=== PATIENT | female | born 1945 | race Caucasian/White ===

== ENCOUNTER → 2017-07-15 15:52 | Outpatient (CLI) | payer MEDICARE, OTHER, SELFPAY ==
--- NOTE | 2017-07-15 15:57 | RAD_ITS ---
STUDY: X-RAY - RIGHT ANKLE REASON FOR EXAM: Female, 72 years old. Fall ankle pain and swelling. TECHNIQUE: 3 view(s) of the ankle. COMPARISON: None. FINDINGS: Normal visualized distal tibia and fibula. Mild cortical lobulation at the tips of the medial and lateral malleoli. Normal tibiotalar articulation and ankle mortise. There is an enthesophyte involving the posterior superior calcaneus at the site of insertion of the Achilles tendon. There is a plantar calcaneal spur. Seen only on one view are 2 small crescent shaped calcific densities adjacent to the distal talus and cuboid, either which could be cortical avulsion injuries, normal ossicles, or the margins of cortical spurring. The visualized subtalar, talonavicular, calcaneocuboid and tarsal articulations are normal. There is soft tissue swelling in the visualized distal lower leg and ankle. RAD/Ankle min 3 Views IMPRESSION: 1. Soft tissue swelling of the distal right lower leg and ankle. 2. Small crescent-shaped calcifications consistent with cortical avulsion injury versus spurring versus normal ossicles seen on only one view near the lateral margins of the distal talus and cuboid. Clinical correlation for point tenderness at this site advised and, if clinically suspicious for acute injury, this could be further characterized with CT. Electronically Signed: Francisco Albarran MD at 16:29 EDT , Service support ,
== END ==
PROVIDERS: Family Provider Internal Medicine; PCP Internal Medicine; Visit Provider Internal Medicine
DX: M25.571 Pain in right ankle and joints of right foot (principal)
CPT/HCPCS: 73610

== ENCOUNTER → 2018-01-18 08:51 | Outpatient (CLI) | payer MEDICARE, OTHER, SELFPAY ==
--- NOTE | 2018-01-18 08:55 | RAD_ITS ---
STUDY: X-RAY - LEFT ANKLE REASON FOR EXAM: Female, 72 years old. Lateral and posterior pain. History of fall 2 weeks ago. TECHNIQUE: 3 view(s) of the ankle. COMPARISON: None. FINDINGS: Normal visualized distal tibia and fibula. I suspect a nondisplaced avulsion fracture of the lateral malleolus. Normal tibiotalar articulation and ankle mortise. Plantar spur. The visualized subtalar, talonavicular, calcaneocuboid and tarsal articulations are normal. Soft tissue swelling. RAD/Ankle min 3 Views IMPRESSION: I suspect a nondisplaced avulsion fracture of the lateral malleolus with overlying soft tissue swelling. Electronically Signed: Shar Whitley MD at 12:47 EDT Tel [phone], Service support ,
== END ==
PROVIDERS: Family Provider Internal Medicine; PCP Internal Medicine; Referring Provider Internal Medicine; Visit Provider Internal Medicine
DX: M25.572 Pain in left ankle and joints of left foot (principal)
CPT/HCPCS: 73610

== ENCOUNTER → 2018-03-23 08:42 | Outpatient (CLI) | payer MEDICARE, OTHER, SELFPAY ==
--- NOTE | 2018-03-23 08:46 | BI_ITS ---
MAMMOGRAPHY - BILATERAL SCREENING REASON FOR EXAM: Female, 72 years old. Routine annual screening examination. PERTINENT HISTORY: Sisters with breast cancer. Mother with breast cancer. Prior right ultrasound-guided breast biopsies. TECHNIQUE: Digital bilateral breast howard (3D mammographic acquisition) in the CC and MLO projections. 2-D mediolateral oblique (MLO) and craniocaudad (CC) views of both breasts were obtained. CAD: Full Field Digital Mammography with Computer Added Detection was performed. COMPARISON: Comparison is made with prior examination dated February 11, 2017 and February 11, 2016. FINDINGS: Breast Composition: There are scattered areas of fibroglandular density. There are no dominant masses or suspicious calcifications. Stable appearance of the tissue clip marker is in the deep mid and medial aspects of the right breast. There now is evidence of a 6 mm x 9.5 mm well-defined nodule in the retroareolar region of the right breast. Correlation with ultrasound is recommended. No other significant abnormalities are identified. BI/SCREENING MAMM (CAD), BILAT IMPRESSION: 6 mm x 9.5 mm well-defined nodule in the retroareolar region of the right breast as described. Correlation with ultrasound is recommended. The remainder of the examination is unchanged. ASSESSMENT CATEGORY: BIRADS Category 0: Incomplete. Need additional imaging evaluation. A letter regarding these results will be sent to the patient by the facility within 30 days. Approximately 10% of breast cancers are not detected by mammography. A normal mammogram should not delay biopsy of a clinically suspicious abnormality. [id number] Electronically Signed: Shar Whitley MD at 10:28 EST Tel [phone], Service support ,
--- NOTE | 2018-03-23 09:20 | BD_ITS ---
STUDY: DUAL ENERGY X-RAY ABSORPTIOMETRY / DXA REASON FOR EXAM: Female, 72 years old. The patient is postmenopausal. Loss of height. TECHNIQUE: Bone Mineral Density (BMD) measurements of lumbar spine and bilateral hips were obtained. COMPARISON: Comparison is made with prior study dated February 11, 2016. FINDINGS: Lumbar Spine (L1-L4): g/cm2 (1.247) / T-score (0.4) / Z-score (2.1) Findings are suggestive of normal bone density with a low fracture risk. Left Femur Total: g/cm2 (1.119) / T-score (0.9) / Z-score (2.4) Left Femoral Neck: g/cm2 (1.033) / T-score (0.0) / Z-score (1.7) Right Femur Total: g/cm2 (1.121) / T-score (0.9) / Z-score (2.4) Right Femoral Neck: g/cm2 (1.066) / T-score (0.2) / Z-score (1.9) The T-Scores on the most recent prior examination were: Lumbar Spine (L1-L4): There has been improvement of bone density since the previous examination. Left Femur Total: which represents a worsening of 2.3%. Right Femur Total: which represents a worsening of 3.7%. BD/Dexa Bone Density Study IMPRESSION: The patient is considered normal as outlined below according to World Jose Organization (WHO) criteria with a low fracture risk. There has been worsening of bone density since the previous examination. Reference Information: The T-score is the number of standard deviations above or below the standard which is normal for young adults at their peak bone mineral density. The World Health Organization (WHO) interprets the T-scores as follows: Above -1 Normal bone density Between -1 and -2.5 Osteopenia Equal to / or below -2.5 Osteoporosis As a practical clinical guideline, osteopenia may be graded as follows: Mild -1 through -1.5 Moderate -1.6 through -2.0 Severe -2.1 through -2.4 The Z-score is the number of standard deviations above or below age-matched controls. A Z-score of less than -1.5 would be considered abnormal. References: 1. NIH Osteoporosis and Related Bone Diseases http://www.osteo.org 2. International Society for Clinical Densitometry http://www.iscd.org 3. National Osteoporosis Foundation http://www.nof.org Electronically Signed: Shar Whitley MD at 13:07 EST Tel [phone], Service support ,
--- OUTSIDE RECORDS SUMMARY | 2018-05-18 14:03 | XMS RPT_ITS ---
:1945 Author Organization OHIP Care Team Providers Name Role Phone Christo Renner Attending Unavailable Bonezzi, Arlet Referring Unavailable Bonezzi, Arlet Primary Care Unavailable Bonezzi, Arlet Attending Unavailable Nurse, Surgery Attending Unavailable Bonezzi, Arlet Referring Unavailable Bonezzi, Arlet Attending Unavailable Bonezzi, Arlet Referring Unavailable Bonezzi, Arlet Primary Care Unavailable Bonezzi, Arlet Attending Unavailable Bonezzi, Arlet Primary Care Unavailable Bonezzi, Arlet Attending Unavailable Bonezzi, Arlet Referring Unavailable Bonezzi, Arlet Primary Care Unavailable PROBLEMS PROBLEMS DATE TYPE CONDITION / CODE ATTENDING STATUS SOURCE 04/07/2018 Unknown R92.8 - Other Christo Renner Active [facility] abnormal and Community inconclusive Hospital findings on Repository diagnostic imaging of breast / R92.8(ICD-10) 03/23/2018 Unknown Z12.31 - Encounter Arlet Ricketts for screening Community mammogram for Hospital malignant neoplasm Repository of breast / Z12.31(ICD-10) 03/23/2018 Unknown Z78.0 - Arlet Ricketts Active [facility] menopausal state / Hospital Z78.0(ICD-10) Repository PROCEDURES PROCEDURES No Procedure Records FoundRESULTS RESULTS SURGERY VISIT REPORT Observed: 04/07/2018 Status: F Source: [place] 8:36 AM [facility] REPOSITORY [facility] [address] [place] [address] OFFICE VISIT Date of Service: 04/07/18 MR#: [id number] Acct: [id number] Name: ALLY ESCOTO Rep #: [id number] : 1945 Provider: Christo Renner MD Age/Sex: 72/F Location: [facility] Status: Signed Intake Vital Signs04/07/18 Height 5 ft 3.5 in 04/07/18 Weight: 195 lb 2 oz 04/07/18 Body Mass Index (BMI) 34.0 04/07/18 Blood Pressure 153/79 H Intake Visit Reasons: Family HX R Breast Abnormal Mammo 03/23 US 03/29 Chief Complaint: breast check, family history breast CA x3 Utility Arborist Required: No Is patient in pain?: No Allergies amoxicillin Allergy (Mild, Verified 04/07/18 08:28) rash codeine Adverse Reaction (Mild, Verified 04/07/18 08:28) GI upset lisinopril Adverse Reaction (Mild, Verified 04/07/18 08:28) sleepy Medications amlodipine 5 mg tablet 5 mg PO BID tab 04/07/18 [History Confirmed 04/07/18] arginine (L-arginine) 2,000 mg oral powder packet mg PO ea 04/07/18 [History Confirmed 04/07/18] ascorbate calcium 500 mg tablet 500 mg PO BID 04/07/18 [History Confirmed 04/07/18] aspirin 81 mg tablet,delayed release 81 mg PO DAILY 04/07/18 [History Confirmed 04/07/18] cholecalciferol (vitamin D3) 400 unit capsule 400 unit PO BID cap 04/07/18 [History Confirmed 04/07/18] fenofibrate 160 mg tablet 160 mg PO DAILY 04/07/18 [History Confirmed 04/07/18] losartan 25 mg tablet 25 mg PO DAILY 04/07/18 [History Confirmed 04/07/18] metformin 500 mg tablet 500 mg PO BID 04/07/18 [History Confirmed 04/07/18] omega 1-bnn-kii-fish oil 1,000 mg (120 mg-180 mg) capsule cap PO cap 04/07/18 [History Confirmed 04/07/18] omeprazole 40 mg capsule,delayed release 40 mg PO DAILY 04/07/18 [History Confirmed 04/07/18] rosuvastatin 20 mg tablet 20 mg PO DAILY 04/07/18 [History Confirmed 04/07/18] Is last menstrual period known: No Post menopausal: Yes Patient : No PFSH Medical History Abnormal mammogram of right breast (Acute) Cardiac murmur (Acute) GERD (gastroesophageal reflux disease) (Acute) History of benign breast biopsy (Acute) History of wisdom tooth extraction (Acute) Osteoarthritis (Acute) HTN (hypertension) (Chronic) Surgical History History of cholecystectomy (Acute) History of colonoscopy (Acute 2007) History of neck surgery (Acute) Family History Mother Breast cancer Sister Breast cancer Sister Breast cancer Father Heart disease Social History Smoking Status: Never smoker HPI HPI HPI: ALLY ESCOTO, is a 72 F who presents to the office today for surgical consultation regarding abnormal mammogram and ultrasound. The patient is referred by Dr. Arlet Ricketts and a written compromise surgical consult recommendations will be returned to her. The patient is a very pleasant 72-year-old female. G0. Menarche was at age 11. She has had 2 previous breast biopsies she knows 1 of those was on the right. She has had 2 sisters with breast cancer 1 of them Aydee. The other sister at age 61 from her disease. Mother also had breast cancer. Patient is not on any estrogen replacement therapy. She has had no change in her self breast exam. No nipple discharge or drainage. At the [facility] March 23, 2018 she had screening mammography. There was felt to be a 6 x 9.5 mm well-defined nodule in the retroareolar area of the right breast. BI-RADS Category 0. Right breast ultrasound was subsequently obtained on March 29, 2018. This demonstrated that 1 o'clock position there is a 6 x 6 x 4 mm septated cyst and an adjacent 3 x 3 x 2 mm cyst ROS General General: No weight change, appetite, fatigue, colon cancer, breast cancer or weakness HEENT HEENT: No difficulty swallowing, eye injury, eye surgery, swollen glands or hoarseness Endo Endocrine: Yes diabetes mellitus; no thyroid disease, thyroid cancer, Hair loss, heat intolerance or cold intolerance Breast Breast: Yes abnormal mammogram and abnormal US; no left breast lump, right breast lump, nipple discharge, breast pain or breast enlargement Musc Musculoskeletal: Yes arthritis; no back problems, rheumatoid arthritis, gout or joint pain Cardio Cardiovascular: Yes murmur and high blood pressure; no pacemaker, heart disease, atrial fibrillation, heart attack, heart stent, palpitations, shortness of breat with exertion or chest pain Resp Respiratory: No shortness of breath, Yes sleep apnea, No cough, No COPD, No asthma, No emphysema, No wheezing Gastro Gastrointestinal: No abdominal pain, No nausea or vomiting, No diarrhea, No constipation, No blood in stool, Yes acid reflux, No hemorrhoids, No ulcers, No gallbladder problem, No black,tarry stools Volodymyr Hematologic: No blood thinners, No blood disorders, No bleeding, No anemia, No blood clots Neuro Neurologic: No weakness Exam Chest Breast Palpation: No nipple discharge Other: Bilateral breasts: No focal mass. No nipple discharge. No active blurry or clavicular adenopathy Cardio Heart Sounds: murmur Assessment AND Plan Problems 1. Abnormal mammogram of right breast R92.8 Plan I have discussed treatment options with the patient. Her family history is significant. I reviewed her images. The septated cyst on the right is slightly irregular. I believe that is reasonable to offer her an ultrasound-guided final aspiration right breast 1 o'clock position. I believe that this would provide her definitive diagnosis. She could then pursue annual imaging. In deference to the biopsy I have also offered 6- month follow-up right breast ultrasound. The patient has had the opportunity to ask and have questions answered. She believes that having definitive information would be valuable. She would like to schedule and pursue the ultrasound-guided final aspiration right breast. I appreciate the opportunity of assisting with her surgical care. We will expedite her aspiration. CC: Dr. Arlet Renner M.D., F.A.C.S. Coding Level of Care Code Prob focused, straight fwd Diagnoses Abnormal mammogram of right breast R92.8 04/07/18 0836 <Electronically signed by Christo Renner MD> Date Christo Mcmullen Signature: Date (if applicable) CC: Arlet Ricketts MD BREAST LIMITED Observed: 03/29/2018 Status: F Source: [place] UNILATERAL 1:54 PM [facility] REPOSITORY [facility] Imaging Services [address] [place] [address] Breast Limited Unilateral MR#: [id number] Acct: [id number] Name: ALLY ESCOTO Rep #: [id number] : 1945 F 72 From: Shar Whitley MD PCP: Arlet Ricketts MD Status: REG CLI Study: Breast Limited Unilateral Date of Exam: 03/29/18 Exam# [id number] Ordering Dr: Arlet Ricketts MD STUDY: ULTRASOUND BREAST - RIGHT REASON FOR EXAM: Female, 72 years old. Abnormal screening mammogram. TECHNIQUE: Axial and longitudinal images of the RIGHT breast were performed with a high resolution ultrasound transducer. COMPARISON: Comparison is made with prior mammogram dated March 23, 2018. FINDINGS: RIGHT Breast: The mammographic abnormality corresponds to a 6 mm x 6 mm x 4 mm septated cyst. This is at the 1:00 position breast at this time is from nipple. Adjacent to this, there is a 3 mm x 3 mm x 2 mm cyst. Routine mammographic follow-up is recommended. US/Breast Limited Unilateral IMPRESSION: 2 small cysts. ASSESSMENT CATEGORY: BIRADS Category 2: Benign. A letter regarding these results will be sent to the patient by the facility within 30 days. Electronically Signed: Shar Whitley MD at 15:30 EST Tel [phone], Service support , CC: Arlet Ricketts MD Transition Coach: Signed SCREENING MAMM (CAD), Observed: 03/23/2018 Status: F Source: [place] 8:46 AM [facility] REPOSITORY [facility] Imaging Services [address] [place] [address] SCREENING MAMM (CAD), BILAT MR#: [id number] Acct: [id number] Name: ALLY ESCOTO Rep #: [id number] : 1945 F 72 From: Shar Whitley MD PCP: Arlet Ricketts MD Status: REG CLI Study: SCREENING MAMM (CAD), BILAT Date of Exam: 03/23/18 Exam# [id number] Ordering Dr: Arlet Ricketts MD MAMMOGRAPHY - BILATERAL SCREENING REASON FOR EXAM: Female, 72 years old. Routine annual screening examination. PERTINENT HISTORY: Sisters with breast cancer. Mother with breast cancer. Prior right ultrasound-guided breast biopsies. TECHNIQUE: Digital bilateral breast howard (3D mammographic acquisition) in the CC and MLO projections. 2-D mediolateral oblique (MLO) and craniocaudad (CC) views of both breasts were obtained. CAD: Full Field Digital Mammography with Computer Added Detection was performed. COMPARISON: Comparison is made with prior examination dated February 11, 2017 and February 11, 2016. FINDINGS: Breast Composition: There are scattered areas of fibroglandular density. There are no dominant masses or suspicious calcifications. Stable appearance of the tissue clip marker is in the deep mid and medial aspects of the right breast. There now is evidence of a 6 mm x 9.5 mm well-defined nodule in the retroareolar region of the right breast. Correlation with ultrasound is recommended. No other significant abnormalities are identified. BI/SCREENING MAMM (CAD), BILAT IMPRESSION: 6 mm x 9.5 mm well-defined nodule in the retroareolar region of the right breast as described. Correlation with ultrasound is recommended. The remainder of the examination is unchanged. ASSESSMENT CATEGORY: BIRADS Category 0: Incomplete. Need additional imaging evaluation. A letter regarding these results will be sent to the patient by the facility within 30 days. Approximately 10% of breast cancers are not detected by mammography. A normal mammogram should not delay biopsy of a clinically suspicious abnormality. [id number] Electronically Signed: Shar Whitley MD at 10:28 EST Tel [phone], Service support , CC: Arlet Ricketts MD Transition Coach: Signed DEXA BONE DENSITY Observed: 03/23/2018 Status: F Source: [facility] 8:46 AM [facility] REPOSITORY [facility] Imaging Services [address] [place] [address] Dexa Bone Density Study MR#: [id number] Acct: [id number] Name: ALLY ESCOTO Rep #: [id number] : 1945 F 72 From: Shar Whitley MD PCP: Arlet Ricketts MD Status: REG CLI Study: Dexa Bone Density Study Date of Exam: 03/23/18 Exam# [id number] Ordering Dr: Arlet Ricketts MD STUDY: DUAL ENERGY X-RAY ABSORPTIOMETRY / DXA REASON FOR EXAM: Female, 72 years old. The patient is postmenopausal. Loss of height. TECHNIQUE: Bone Mineral Density (BMD) measurements of lumbar spine and bilateral hips were obtained. COMPARISON: Comparison is made with prior study dated February 11, 2016. FINDINGS: Lumbar Spine (L1-L4): g/cm2 (1.247) / T-score (0.4) / Z-score (2.1) Findings are suggestive of normal bone density with a low fracture risk. Left Femur Total: g/cm2 (1.119) / T-score (0.9) / Z-score (2.4) Left Femoral Neck: g/cm2 (1.033) / T-score (0.0) / Z- score (1.7) Right Femur Total: g/cm2 (1.121) / T-score (0.9) / Z- score (2.4) Right Femoral Neck: g/cm2 (1.066) / T-score (0.2) / Z- score (1.9) The T-Scores on the most recent prior examination were: Lumbar Spine (L1-L4): There has been improvement of bone density since the previous examination. Left Femur Total: which represents a worsening of 2.3%. Right Femur Total: which represents a worsening of 3.7%. BD/Dexa Bone Density Study IMPRESSION: The patient is considered normal as outlined below according to World Jose Organization (WHO) criteria with a low fracture risk. There has been worsening of bone density since the previous examination. Reference Information: The T-score is the number of standard deviations above or below the standard which is normal for young adults at their peak bone mineral density. The World Health Organization (WHO) interprets the T-scores as follows: Above -1 Normal bone density Between -1 and -2.5 Osteopenia Equal to / or below -2.5 Osteoporosis As a practical clinical guideline, osteopenia may be graded as follows: Mild -1 through -1.5 Moderate -1.6 through -2.0 Severe -2.1 through -2.4 The Z-score is the number of standard deviations above or below age-matched controls. A Z-score of less than -1.5 would be considered abnormal. References: 1. NIH Osteoporosis and Related Bone Diseases http://www.osteo.org 2. International Society for Clinical Densitometry http://www.iscd.org 3. National Osteoporosis Foundation http://www.nof.org Electronically Signed: Shar Whitley MD at 13:07 EST Tel [phone], Service support , CC: Arlet Ricketts MD Transition Coach: Signed ANKLE MIN 3 VIEWS Observed: 01/18/2018 Status: F Source: [place] 8:55 AM [facility] REPOSITORY [facility] Imaging Services [address] [place] [address] Ankle min 3 Views MR#: [id number] Acct: [id number] Name: ALLY ESCOTO Rep #: [id number] : 1945 F 72 From: Shar Whitley MD PCP: Arlet iRcketts MD Status: REG CLI Study: Ankle min 3 Views Date of Exam: 01/18/18 Exam# [id number] Ordering Dr: Arlet Ricketts MD STUDY: X-RAY - LEFT ANKLE REASON FOR EXAM: Female, 72 years old. Lateral and posterior pain. History of fall 2 weeks ago. TECHNIQUE: 3 view(s) of the ankle. COMPARISON: None. FINDINGS: Normal visualized distal tibia and fibula. I suspect a nondisplaced avulsion fracture of the lateral malleolus. Normal tibiotalar articulation and ankle mortise. Plantar spur. The visualized subtalar, talonavicular, calcaneocuboid and tarsal articulations are normal. Soft tissue swelling. RAD/Ankle min 3 Views IMPRESSION: I suspect a nondisplaced avulsion fracture of the lateral malleolus with overlying soft tissue swelling. Electronically Signed: Shar Whitley MD at 12:47 EDT Tel [phone], Service support , CC: Arlet Ricketts MD Transition Coach: Signed ANKLE MIN 3 VIEWS Observed: 07/15/2017 Status: F Source: [place] 3:57 PM [facility] REPOSITORY [facility] Imaging Services [address] [place] [address] Ankle min 3 Views MR#: [id number] Acct: [id number] Name: ALLY ESCOTO Rep #: [id number] : 1945 F 72 From: Thomas Albarran MD PCP: Arlet Ricketts MD Status: REG CLI Study: Ankle min 3 Views Date of Exam: 07/15/17 Exam# [id number] Ordering Dr: Arlet Ricketts MD STUDY: X-RAY - RIGHT ANKLE REASON FOR EXAM: Female, 72 years old. Fall ankle pain and swelling. TECHNIQUE: 3 view(s) of the ankle. COMPARISON: None. FINDINGS: Normal visualized distal tibia and fibula. Mild cortical lobulation at the tips of the medial and lateral malleoli. Normal tibiotalar articulation and ankle mortise. There is an enthesophyte involving the posterior superior calcaneus at the site of insertion of the Achilles tendon. There is a plantar calcaneal spur. Seen only on one view are 2 small crescent shaped calcific densities adjacent to the distal talus and cuboid, either which could be cortical avulsion injuries, normal ossicles, or the margins of cortical spurring. The visualized subtalar, talonavicular, calcaneocuboid and tarsal articulations are normal. There is soft tissue swelling in the visualized distal lower leg and ankle. RAD/Ankle min 3 Views IMPRESSION: 1. Soft tissue swelling of the distal right lower leg and ankle. 2. Small crescent-shaped calcifications consistent with cortical avulsion injury versus spurring versus normal ossicles seen on only one view near the lateral margins of the distal talus and cuboid. Clinical correlation for point tenderness at this site advised and, if clinically suspicious for acute injury, this could be further characterized with CT. Electronically Signed: Francisco Albarran MD at 16:29 EDT , Service support , CC: Arlet Ricketts MD Transition Coach: Signed ALLERGIES ALLERGIES DATE TYPE / CODE NAME / CODE REACTION SEVERITY SOURCE 04/07/2018 Drug lisinopril/F SLEEPY [facility] Allergy/4160 [id number](RX Hospital 53600(SNOMED NORM) Repository CT) 04/07/2018 Drug codeine/F006 gi upset [facility] Allergy/4160 389565(RX[facility] 81129(SNOMED M) Repository CT) 04/07/2018 Drug amoxicillin/ Rash [facility] Allergy/4160 [id number](R Hospital 88273(SNOMED XNORM) Repository CT) ENCOUNTERS ENCOUNTERS ADMIT/DISCHARGE ACCOUNT ADMITTING ENCOUNTER LOCATION SOURCE NUMBER CLASS 04/07/2018/ [id number] Ambulatory BMSBuilding:B [place] 8 6 [facility] Repository 03/29/2018 [id number] Ambulatory [place] 5 [facility] ing:OPUS Repository 03/23/2018 [id number] Ambulatory [place] 2 [facility] ing:OPBI Repository 01/18/2018 [id number] Ambulatory [place] 9 [facility] ing:HPRAD Repository 08/10/2017/ [id number] Ambulatory BMSBuilding:B [place] 8 5 [facility] Repository 07/15/2017 [id number] Ambulatory [place] 9 [facility] ing:HPRAD Repository PAYERS PAYERS ENCOUNTER GUARANTOR PAYER SUBSCRIBER SOURCE 04/07/2018 ALLY Singer Primary ALLY A [place] [id number] Insurance:MEDICARE STOLLERDOB: [facility] PART [facility] [id number]: Repository [address]Mco: [phone] [id number] [phone] () Date:2018-03-31 04/07/2018 Secondary ALLY A Madd[place] Insurance:AARPPolicy STOLLERDOB: Community Number: [id number] [id number] Repository Date:[id number] [facility] [place], [place] [address]LA: 04/07/2018 Tertiary NOT GIVENUNK [place] Insurance:SELF PAY [facility] Number: Effective Repository Date:2018-03-31 03/29/2018 ALLY A Primary ALLY A [place] [id number] Insurance:MEDICARE STOLLERDOB: Community MAIN PART A [id number] [place] Number: Repository [address]Fii: 330 [id number] [phone] () Date:2018-03-23 03/29/2018 Secondary ALLY A [place] Insurance:AARPPolicy STOLLERDOB: Community Number: [id number] [id number] Repository Date:7000-30-[address], [place] [address]SE: 03/29/2018 Tertiary NOT GIVENUNK [place] Insurance:SELF PAY [facility] Number: Effective Repository Date:2018-03-23 03/23/2018 ALLY A Primary ALLY A [place] [id number] Insurance:MEDICARE STOLLERDOB: Community MAIN PART A [facility] [id number] Number: Repository [id number]: 330 [id number] [phone] () Date:2018-02-09 03/23/2018 Secondary ALLY A [place] Insurance:AARPPolicy STOLLERDOB: Community Number: [id number] [id number] Repository Date:1544-73-11VX [facility] [place]98[place], [place] [address]XE: 03/23/2018 Tertiary NOT GIVENUNK [place] Insurance:SELF PAY [facility] Number: Effective Repository Date:2018-02-09 01/18/2018 ALLY A Primary ALLY A [place] [id number] Insurance:MEDICARE STOLLERDOB: Community MAIN PART A [facility] [id number] [place] Number: Repository [address]Zel: 330 [id number] [phone] (HP) Date:2018-01-18 01/18/2018 Secondary ALLY A [place] Insurance:AARPPolicy STOLLERDOB: Community Number: [id number] [id number] Repository Date:0092-84-06AQ [facility] [address], [place] [address]YM: 01/18/2018 Tertiary NOT GIVENUNK [place] Insurance:SELF PAY [facility] Number: Effective Repository Date:2018-01-18 08/10/2017 ALLY A Primary ALLY A [place] [id number] Insurance:MEDICARE STOLLERDOB: Community MAIN PART A [facility] [id number] [place] Number: Repository [id number]: [id number] [phone] Date:2017-08-10 () 08/10/2017 Secondary ALLY A [place] Insurance:AARPPolicy STOLLERDOB: Community Number: [id number] Hospital [id number] Repository Date:4192-30-22TR [facility] [address], [place] [address]KA: 08/10/2017 Tertiary NOT GIVENUNK [place] Insurance:SELF PAY [facility] Number: Effective Repository Date:2017-08-10 07/15/2017 Ally A Primary Ally A [place] [id number] Insurance:MEDICARE StollerDOB: Community Main PART A [facility] [id number] [place] Number: Repository [address]Uym: [id number] [phone] Date:2017-07-15 () 07/15/2017 Secondary ALLY A [place] Insurance:AARPPolicy STOLLERDOB: Community Number: [id number] [facility] [id number] Repository Date:[id number] [facility] [place], [place] [address]QC: 07/15/2017 Tertiary NOT GIVENUNK [place] Insurance:SELF PAY [facility] Number: Effective Repository Date:2017-07-15
== END ==
PROVIDERS: Family Provider Internal Medicine; PCP Internal Medicine; Visit Provider Internal Medicine
DX: Z12.31 Encounter for screening mammogram for malignant neoplasm of breast (principal); Z78.0 Asymptomatic menopausal state
CPT/HCPCS: 77063; 77067; 77080

== ENCOUNTER → 2018-03-29 13:52 | Outpatient (CLI) | payer MEDICARE, OTHER, SELFPAY ==
--- NOTE | 2018-03-29 13:54 | US_ITS ---
STUDY: ULTRASOUND BREAST - RIGHT REASON FOR EXAM: Female, 72 years old. Abnormal screening mammogram. TECHNIQUE: Axial and longitudinal images of the RIGHT breast were performed with a high resolution ultrasound transducer. COMPARISON: Comparison is made with prior mammogram dated March 23, 2018. FINDINGS: RIGHT Breast: The mammographic abnormality corresponds to a 6 mm x 6 mm x 4 mm septated cyst. This is at the 1:00 position breast at this time is from nipple. Adjacent to this, there is a 3 mm x 3 mm x 2 mm cyst. Routine mammographic follow-up is recommended. US/Breast Limited Unilateral IMPRESSION: 2 small cysts. ASSESSMENT CATEGORY: BIRADS Category 2: Benign. A letter regarding these results will be sent to the patient by the facility within 30 days. Electronically Signed: Shar Whitley MD at 15:30 EST Tel [phone], Service support ,
== END ==
PROVIDERS: Family Provider Internal Medicine; PCP Internal Medicine; Referring Provider Internal Medicine; Visit Provider Internal Medicine
DX: R92.8 Other abnormal and inconclusive findings on diagnostic imaging of breast (principal)
CPT/HCPCS: 76642

== ENCOUNTER 2018-05-20 05:47 | Day surgery (SDC) | payer MEDICARE, OTHER, SELFPAY ==
[2018-04-13 09:05] VITALS: BMI 34.0
--- NOTE | 2018-05-20 06:18 | PCM.HP.STD ---
Problem List (1) Screening for intestinal cancer Status: Acute History of Present Illness Date of Admission: 05/20/18 The patient is a 73 year old F who presents for screening colonoscopy. Her most recent colonoscopy was in 2007. She denies any bright red blood per rectum or melena. No abdominal pain. No change in bowel habits. She states that she otherwise has been enjoying good health Past Medical History Medical History: Medical History (Last Reviewed 04/13/18 @ 09:04 by Anita Pascual) Abnormal mammogram of right breast (Acute) R92.8 Cardiac murmur R01.1 GERD (gastroesophageal reflux disease) K21.9 History of benign breast biopsy Z98.890 History of wisdom tooth extraction K08.409 Osteoarthritis M19.90 HTN (hypertension) I10 Allergies amoxicillin Allergy (Mild, Verified 05/17/18 12:12) rash codeine Adverse Reaction (Mild, Verified 05/17/18 12:12) GI upset lisinopril Adverse Reaction (Mild, Verified 05/17/18 12:12) sleepy Home Medications: Ambulatory Orders Medication Instructions Recorded amlodipine 5 mg tablet 10 mg PO BID tab 04/07/18 aspirin 81 mg tablet,delayed 81 mg PO DAILY 04/07/18 release cholecalciferol (vitamin D3) 400 800 unit PO BID cap 04/07/18 unit capsule fenofibrate 160 mg tablet 160 mg PO DAILY 04/07/18 losartan 25 mg tablet 25 mg PO QHS 04/07/18 metformin 500 mg tablet 500 mg PO BID 04/07/18 omega 3-lxd-fwj-fish oil 1,000 mg 1 cap PO DAILY cap 04/07/18 (120 mg-180 mg) capsule omeprazole 40 mg capsule,delayed 40 mg PO DAILY 04/07/18 release rosuvastatin 20 mg tablet 20 mg PO DAILY 04/07/18 Calcium Carbonate [Calcium] 600 mg PO BID 05/17/18 Surgical History: Surgical History (Last Reviewed 04/13/18 @ 09:04 by Anita Pascual) History of cholecystectomy Z90.49 History of colonoscopy Onset Date: ~2007 Z98.890 History of neck surgery Z98.890 Smoking Status: Never smoker Tobacco Use: Non-smoker Review of Systems Constitutional: Denies: Anorexia HEENT: Denies: Difficulty Swallowing Cardiovascular: Denies: Chest Pain Respiratory: Denies: Cough Gastrointestinal: Denies: Abdominal Pain Neurological: Denies: Balance problems Endocrine: Denies: Change in Body Habitus VTE Information - Inpt Only VTE Present on Admission: No Patient Problems: Active and Suspected Problems (Last Reviewed 04/13/18 @ 09:04 by Anita Pascual) Screening for intestinal cancer (Acute) - Physical Exam General: Alert, Oriented x3, Cooperative, No apparent distress HEENT: Atraumatic Oral: Moist Mucosa Neck: Supple Lungs: Clear to auscultation Cardiovascular: Regular rate, Regular Rhythm Abdomen: Bowel Sounds Present, Soft, Non Tender Extremities: No Calf Tenderness Psych/Mental Status: Normal Affect Body Mass Index (BMI) 34.0 Assessment/Plan All Active Problems (Last Reviewed 04/13/18 @ 09:04 by Anita Pascual) Screening for intestinal cancer (Acute) Abnormal mammogram of right breast (Acute) I am recommending the patient a screening colonoscopy with possible biopsy or polypectomy as indicated. She is aware of the technique, benefits, risks, alternatives. She presents via our open access program. We will proceed as noted. Christo Renner M.D., F.A.C.S.
[2018-05-20 06:25] VITALS: BP 159/69; PULSE 77; RESP 16; TEMP 36.9; O2SAT 99; BMI 33.9
[2018-05-20 06:31] LABS: Bedside Glucose 145 mg/dL (70-110)
[2018-05-20 07:20] VITALS: BP 121/93; BP 159/69; PULSE 86; RESP 16; TEMP 36.4; O2SAT 97
--- NOTE | 2018-05-20 07:20 | OP.ENDO_ITS ---
Patient Name: Ally Navarro Procedure Date: 05/20/2018 6:59 AM Date of : 1945 Age: 73 Procedure: Colonoscopy Indications: Screening for colorectal malignant neoplasm Providers: Christo Renner MD Referring MD: Christo Renner MD Medicines: See the Anesthesia note for documentation of the administered medications Patient Profile: Last Colonoscopy: 2007. Complications: No immediate complications. Procedure: Pre-Anesthesia Assessment: - Prior to the procedure, a History and Physical was performed, and patient medications and allergies were reviewed. The patient's tolerance of previous anesthesia was also reviewed. The risks and benefits of the procedure and the sedation options and risks were discussed with the patient. All questions were answered, and informed consent was obtained. Prior Anticoagulants: The patient has taken aspirin, last dose was 1 day prior to procedure. ASA Grade Assessment: II - A patient with mild systemic disease. After reviewing the risks and benefits, the patient was deemed in satisfactory condition to undergo the procedure. After I obtained informed consent, the scope was passed under direct vision. Throughout the procedure, the patient's blood pressure, pulse, and oxygen saturations were monitored continuously. The Colonoscope was introduced through the anus and advanced to the cecum, identified by appendiceal orifice and ileocecal valve. The colonoscopy was performed without difficulty. The patient tolerated the procedure well. The quality of the bowel preparation was good. The ileocecal valve was photographed. Scope In: 7:05:21 AM Scope Withdrawal Time 0 hours 6 minutes 11 seconds Scope Out: 7:16:10 AM Total Procedure Duration Time 0 hours 10 minutes 49 seconds Findings: Hemorrhoids were found on perianal exam. Scattered diverticula were found in the sigmoid colon. The exam was otherwise without abnormality. Impression: - Hemorrhoids found on perianal exam. - Diverticulosis in the sigmoid colon. - The examination was otherwise normal. - No specimens collected. Recommendation: - Discharge patient to home. - Resume previous diet. - Continue present medications. - Repeat colonoscopy in 10 years for screening purposes. Procedure Code(s): --- Professional --- 08505, Colonoscopy, flexible; diagnostic, including collection of specimen(s) by brushing or washing, when performed (separate procedure) Diagnosis Code(s): --- Professional --- Z12.11, Encounter for screening for malignant neoplasm of colon K64.9, Unspecified hemorrhoids K57.30, Diverticulosis of large intestine without perforation or abscess without bleeding CPT copyright 2017 [employer]. All rights reserved. The codes documented in this report are preliminary and upon packager head review may be revised to meet current compliance requirements. Christo Renner MD 05/20/2018 7:20:29 AM This report has been signed electronically. Number of Addenda: 0 Note Initiated On: 05/20/2018 6:59 AM
[2018-05-20 07:25] VITALS: BP 135/65; BP 159/69; PULSE 82; RESP 18; O2SAT 96
[2018-05-20 07:30] VITALS: BP 144/72; BP 159/69; PULSE 76; RESP 16; O2SAT 97
[2018-05-20 07:35] VITALS: BP 123/49; BP 159/69; PULSE 74; RESP 18; TEMP 36.7; O2SAT 96
[2018-05-20 07:38] VITALS: BP 159/69
== END 2018-05-20 08:13 | disposition home or self-care (01) ==
LOC: EN 05:48 → AC 05:50
PROVIDERS: Family Provider Internal Medicine; PCP Internal Medicine; Referring Provider Surgery; Visit Provider Surgery
PROC: 0DJD8ZZ Inspection of Lower Intestinal Tract, Via Natural or Artificial Opening Endoscopic (ICD-10-PCS; CPT 45378; principal; 2018-05-20 06:55)
DX: Z12.11 Encounter for screening for malignant neoplasm of colon (principal); K64.9 Unspecified hemorrhoids; K57.30 Diverticulosis of large intestine without perforation or abscess without bleeding; G47.30 Sleep apnea, unspecified; K21.9 Gastro-esophageal reflux disease without esophagitis; E78.00 Pure hypercholesterolemia, unspecified; M19.90 Unspecified osteoarthritis, unspecified site; I10 Essential (primary) hypertension; R01.1 Cardiac murmur, unspecified; Z78.0 Asymptomatic menopausal state; Z79.84 Long term (current) use of oral hypoglycemic drugs; Z79.82 Long term (current) use of aspirin; Z79.899 Other long term (current) drug therapy
CPT/HCPCS: G0121; 82962; J7120

== ENCOUNTER → 2018-06-16 13:42 | Outpatient (CLI) | payer SELFPAY ==
[2018-05-20 06:25] VITALS: BMI 33.9
--- NOTE | 2018-06-16 13:54 | CT_ITS ---
STUDY: CT CHEST WITHOUT CONTRAST REASON FOR EXAM: Female, 73 years old. Calcium scoring examination. Radiological over read study. RADIATION DOSAGE (If Supplied By Facility): CTDIvol = ( 12.19 ) mGy, DLP = ( 219.42 ) mGycm TECHNIQUE: Transaxial imaging was performed without the administration of intravenous contrast material. Individualized dose optimization techniques were used for this CT. COMPARISON: None. FINDINGS: Minimal increased markings at the left lung base suggestive of linear atelectasis and/or scarring. There is no demonstrated pleural abnormality. There are calcifications of the coronary arteries. There are multiple small lymph nodes within the mediastinum, which are normal in size and morphology most compatible with reactive lymph hyperplasia. Normal hilar regions. Normal unenhanced pulmonary arteries. Normal aorta arch and descending thoracic aorta. There are multi-level degenerative changes of the thoracic spine. There is no demonstrated abnormality of the visualized upper abdomen. CT/Limited Chest CT w/CCTA IMPRESSION: Coronary artery calcification. Electronically Signed: Shar Whitley MD at 15:47 EST , Service support ,
[2018-06-16 13:58] VITALS: BP 176/58; PULSE 55; RESP 16; TEMP 37.1; O2SAT 97; BMI 34.9
--- NOTE | 2018-06-16 18:16 | CA.SCORE ---
Calcium Scoring Date of Study:: 06/16/18 Coronary Calcium Scoring: Coronary calcium score: 805 Conclusion: Coronary calcium score: 805 Results: The patient underwent a high resolution CT imaging of the chest on 06/16/19 and . Attention was paid to the coronary arteries. The coronary arteries were analyzed for the presence of extensive coronary artery calcification using coronary calcium quantification software. The patient was reported as tolerated the procedure well. The coronary calcium score was reported at 805. Based upon the coronary artery try obtained the LAD had a coronary calcium score of 186, the LCx a coronary calcium score of 136, and the RCA had a coronary calcium score of 484. Based upon pre published reference tables a coronary calcium score over 400 and is indicative of extensive plaque burden in the high likelihood of at least 1 significant coronary stenosis being greater than 50% in diameter. Impression: Coronary calcium score: 805 This note was generated using a voice recognition system and there may be incorrect words, spelling or punctuation that were not noted when reviewing the office note prior to saving.
== END ==
PROVIDERS: Family Provider Internal Medicine; PCP Internal Medicine; Referring Provider Internal Medicine; Visit Provider Internal Medicine
DX: E78.5 Hyperlipidemia, unspecified (principal); Z82.49 Family history of ischemic heart disease and other diseases of the circulatory system; E11.9 Type 2 diabetes mellitus without complications; I65.29 Occlusion and stenosis of unspecified carotid artery; I10 Essential (primary) hypertension
CPT/HCPCS: 75571; 76380

== ENCOUNTER → 2018-07-13 16:21 | Outpatient (CLI) | payer MEDICARE, OTHER, SELFPAY ==
[2018-07-13 15:02] VITALS: BMI 34.5
[2018-07-13 17:35] LABS: Absolute Lymphocyte Count 1.94 X10^3/ul (0.83-4.51); Absolute Neutrophil Count 5.9 X10^3/uL (2.0-7.7); Basophil# 0.05 X10^3/uL; Basophil% 0.6 % (0-1); Eosinophil# 0.29 X10^3/uL; Eosinophils% 3.2 % (0-5); Hematocrit 40.2 % (37-47); Hemoglobin 12.5 g/dl (12.0-15.0); Lymphocyte # 1.94 X10^3/ul (4.0); Lymphocyte % 21.6 % (19-41); Mean Corp Hgb Conc 31.1 g/gl (32-36); Mean Corpuscular Hgb 26.3 pg (27.0-32.0); Mean Corpuscular Volume 84.5 fL (81-99); Mean Platelet Vol. 10.2 fl (6.2-12.0); Monocyte# 0.75 X10^3/uL; Monocyte% 8.4 % (0-10); Neutrophil # 5.92 X10^3/uL (2.7-7.7); Platelet Count 313 K/mm3 (150-450); RBC Distribution Width CV 14.3 % (11.6-14.6); RBC Distribution Width SD 43.4 fl (35.1-43.9); Red Blood Count 4.76 M/mm3 (4.2-5.4)
[2018-07-13 17:50] LABS: POSITIVE COUNT NO; POSITIVE DIFFERENTIAL NO; POSITIVE MORPHOLOGY NO
[2018-07-13 18:37] LABS: Anion Gap 6 (5-15); BUN 23 mg/dL (7-18); Calcium,Total 8.8 mg/dL (8.5-10.1); Chloride 109 mmol/L (98-107); Creatinine, Serum 0.88 mg/dL (0.55-1.02); EST Glomerular Filtration Rate 67 mL/min (>60); Est Glom Filt Rate - Afr Amer 81 mL/min (>60); Glucose 112 mg/dL (74-106); Potassium 3.6 mmol/L (3.5-5.1); Sodium Level 141 mmol/L (136-145)
== END ==
PROVIDERS: Family Provider Internal Medicine; PCP Internal Medicine; Referring Provider Internal Medicine Cardiovascular Disease; Visit Provider Internal Medicine Cardiovascular Disease
DX: R93.1 Abnormal findings on diagnostic imaging of heart and coronary circulation (principal); I35.0 Nonrheumatic aortic (valve) stenosis
CPT/HCPCS: 36415; 80048; 85025

== ENCOUNTER → 2018-07-21 10:55 | Outpatient (CLI) | payer MEDICARE, OTHER, SELFPAY ==
[2018-07-13 15:02] VITALS: BMI 34.5
--- NOTE | 2018-07-21 10:56 | ECHOD_ITS ---
Reason For Study: MURMUR Procedure This was a 2D Doppler, Color Flow transthoracic echocardiogram. Exam performed in department. Left Ventricle Normal LV size. Left ventricular systolic function is normal. The estimated ejection fraction is 60 %. Stage 1 diastolic dysfunction. No regional wall motion abnormalities noted. Right Ventricle Normal RV size. Normal systolic function. Atria Normal left atrium. Normal right atrium. Mitral Valve Normal mitral valve. Tricuspid Valve Normal tricuspid valve. Mild (1+) tricuspid valve insufficiency. Pulmonary artery systolic pressure is 30 mmHg. Aortic Valve Normal aortic valve. Trisinus/trileaflet aortic valve. Pulmonic Valve Normal pulmonic valve. Great Vessels Normal aortic root. The pulmonary artery is normal size. Normal inferior vena cava. Pericardium/Pleural No pericardial effusion. MMode/2D Measurements & Calculations LVIDd: 5.2 cm IVSd: 0.67 cm LVOT diam: 2.0 cm LVIDs: 3.6 cm LVPWd: 0.76 cm LVOT area: 3.0 cm2 RVDd: 3.8 cm FS: 31.4 % Ao root diam: 3.5 cm LAV(MOD-bp): 54.3 ml LVAd ap4: 33.6 cm2 LAV(MOD-bp) Indexed: 28.3 ml/m2 EDV(MOD-sp4): 115.5 ml LAV(MOD-sp2): 57.1 ml EDV(sp4-el): 116.0 ml LAV(MOD-sp4): 51.5 ml LVAs ap4: 17.8 cm2 ESV(MOD-sp4): 42.1 ml ESV(sp4-el): 42.2 ml EF(MOD-sp4): 63.6 % EF(sp4-el): 63.6 % SV(MOD-sp4): 73.4 ml SV(sp4-el): 73.8 ml LA A4 area: 18.1 cm2 LA dimension(2D): 3.8 cm RA A4 area: 12.8 cm2 Time Measurements MV dec time: 0.25 sec Doppler Measurements & Calculations MV E max thiago: 94.1 cm/sec Lat Peak E' Thiago: 9.7 cm/sec Med Peak E' Thiago: 7.4 cm/sec MV A max thiago: 121.7 cm/sec E/E' lat: 9.7 E/E' med: 12.8 MV E/A: 0.77 MV V2 max: 119.3 cm/sec Ao V2 max: 165.8 cm/sec LV V1 max: 133.4 cm/sec MV max P.7 mmHg Ao max P.0 mmHg LV V1 max P.1 mmHg MV V2 mean: 63.3 cm/sec Ao V2 mean: 115.0 cm/sec LV V1 mean P.8 mmHg MV mean P.9 mmHg Ao mean P.9 mmHg LV V1 mean: 93.0 cm/sec MV V2 VTI: 37.1 cm Ao V2 VTI: 38.7 cm LV V1 VTI: 32.2 cm MVA(VTI): 2.6 cm2 LEN(I,D): 2.5 cm2 LEN(V,D): 2.4 cm2 SV(LVOT): 96.4 ml PA V2 max: 132.0 cm/sec TR max thiago: 257.9 cm/sec TR max P.9 mmHg MV P1/2t-pr_phl: 75.7 msec Interpretation Summary Normal LV size. Left ventricular systolic function is normal. The estimated ejection fraction is 60 %. Stage 1 diastolic dysfunction. Mild (1+) tricuspid valve insufficiency. Ordering Physician: Yang Morillo Referring Physician: MECCA SAMAYOA Performed By: Marybeth Cobb, RDCS, RVT
== END ==
PROVIDERS: Family Provider Internal Medicine; PCP Internal Medicine; Referring Provider Internal Medicine Cardiovascular Disease; Visit Provider Internal Medicine Cardiovascular Disease
DX: I35.0 Nonrheumatic aortic (valve) stenosis (principal)
CPT/HCPCS: 93306

== ENCOUNTER 2018-07-22 06:15 | Day surgery (SDC) | payer MEDICARE, OTHER, SELFPAY ==
[2018-07-13 15:02] VITALS: BMI 34.5
[2018-07-20 10:52] VITALS: BMI 34.5
--- NOTE | 2018-07-22 08:29 | CL.D_ITS ---
Patient Name: TANVI ESCOTO Study Date: 07/22/2018 Performing: Yang Morillo MD Ht: 62.99 inches 160 cm : 1945 Wt: 194.01 lbs 88 kg Age: 73 Gender: female BSA: 1.91 PROCEDURE(S) PERFORMED [id number]/COR/LV CLINICAL PROFILE AND INDICATIONS Indications: Suspected CAD Heart Failure: None Stress/Imaging Coronary Calcium Score: Yes Calcium Score: 809Calcium Score: 809 CAD Presentations: Symptom unlikely to be ischemic. CONCLUSIONS Non obstructive coronary arteries Coronary calcification noted RECOMMENDATIONS Medical therapy DESCRIPTION OF PROCEDURE The patient arrived to the procedure lab. The risks and benefits of the procedure as well as a full d escription of our services here and current unavailability of surgical backup were fully explained to the patient and/or their significant other prior to the catheterization. The Timeout was completed, verifying the correct patient and procedure. The patient's procedural site was prepped and draped in the usual fashion. Local anesthetic was given subcutaneously to right radial region with Lidocaine 2% . Using a modified Seldinger technique, arterial access was obtained via the right radial artery, a 6 Fr sheath was inserted. Left Coronary Artery selective angiography was performed in multiple views u sing a 5 Fr. 4.0 Gilberton catheter. Right Coronary Artery selective angiography was then performed in mu ltiple views using a 5 Fr. 4.0 Gilberton catheter. Left Ventriculography was performed in PENA projection using a 5 Fr. Pigtail catheter. LV to AO pullback pressures were then recorded.The arterial sheath was pulled and a TR Band was applied for hemostasis CORONARY ANGIOGRAPHY DOMINANCE: Right Dominant LEFT HEART ASSESSMENT Left Ventricular Ejection Fraction: by LV Gram 60 % Normal LV wall motion Normal Left Ventricular systolic function LEFT MAIN: Angiographically normal LEFT ANTERIOR DECENDING ARTERY: Mild luminal irregularities less than 30%, Mild calcification CIRCUMFLEX ARTERY: Mild luminal irregularities RIGHT CORONARY ARTERY: MID RCA: Moderate luminal irregularities up to 50%, Moderate calcification COMPLICATIONS No Complications PROCEDURE MEDICATIONS Versed 1 mg IV Fentanyl 50 mcg IV Oxygen: 2 L/min via nasal cannula Baby Aspirin (81mg) 1 Tabs PO @ 07/22/2018 06:50:17 SUMMARY OF HEMODYNAMIC DATA Time AIR REST ECG 06:59:45 AO 126/57 (89) SA 08:05:19 LV 136/-10, 13 08:14:14 LV 128/3, 13 08:14:20 LV 139/1, 17 08:15:45 LV 135/2, 15 08:15:55 LVp 134/0, 12 08:16:01 AOp 137/56 (92) 08:16:06 Signed By Yang Morillo MD On 07/22/2018 08:28:19 Yang Morillo MD
== END 2018-07-22 11:15 | disposition home or self-care (01) ==
LOC: CLSP 06:16
PROVIDERS: Family Provider Internal Medicine; PCP Internal Medicine; Referring Provider Internal Medicine Cardiovascular Disease; Visit Provider Internal Medicine Cardiovascular Disease
DX: R93.1 Abnormal findings on diagnostic imaging of heart and coronary circulation (principal); E78.5 Hyperlipidemia, unspecified; K21.9 Gastro-esophageal reflux disease without esophagitis; I10 Essential (primary) hypertension; E66.9 Obesity, unspecified; E11.9 Type 2 diabetes mellitus without complications; R01.1 Cardiac murmur, unspecified; M19.90 Unspecified osteoarthritis, unspecified site; Z79.82 Long term (current) use of aspirin; Z79.02 Long term (current) use of antithrombotics/antiplatelets; Z79.899 Other long term (current) drug therapy; Z82.49 Family history of ischemic heart disease and other diseases of the circulatory system; Z68.34 Body mass index [BMI] 34.0-34.9, adult
CPT/HCPCS: 93458; 99152; 99153; J7040; C1769; C1894; Q9967

== ENCOUNTER → 2019-01-20 13:12 | Outpatient (CLI) | payer MEDICARE, OTHER, SELFPAY ==
[2018-07-20 10:52] VITALS: BMI 34.5
--- NOTE | 2019-01-20 13:15 | RAD_ITS ---
STUDY: X-RAY - RIGHT HAND REASON FOR EXAM: Bilateral hand pain. TECHNIQUE: 3 view(s) of the hand. COMPARISON: None. FINDINGS: Normal radiocarpal articulation. Normal distal radioulnar joint. Normal visualized carpal bones. Normal carpal articulations There are marginal osteophytes and moderately severe joint space narrowing of the carpometacarpal articulation of the thumb. Normal second through fifth carpometacarpal joints. Normal metacarpi. Normal metacarpophalangeal joint of the thumb. There are marginal osteophytes and severe joint space narrowing of the interphalangeal joint of the thumb. Normal proximal and distal phalanges of the thumb. Normal metacarpophalangeal joints of the second through fifth fingers. There are marginal osteophytes and joint space narrowing of the second through fifth distal interphalangeal joints and third through fifth distal interphalangeal joints with central erosive changes of the second through fourth distal interphalangeal joints and third proximal interphalangeal joint. Normal phalanges of the second through fifth fingers. The soft tissue structures are unremarkable. RAD/Hand Min 3 Views IMPRESSION: Erosive osteoarthritis. Electronically Signed: Vadim Mendoza MD at 14:26 EDT Tel , Service support ,
--- NOTE | 2019-01-20 13:22 | RAD_ITS ---
STUDY: X-RAY - LEFT HAND REASON FOR EXAM: Female, 73 years old. Bilateral hand pain. TECHNIQUE: 3 view(s) of the hand. COMPARISON: None. FINDINGS: No visible fracture. No osseous destruction. Alignment anatomic. Erosive osteoarthritis of the interphalangeal joints with complete joint space loss and erosions and mild adjacent soft tissue swelling. Moderate first CMC joint osteoarthritis. Otherwise mild degenerative changes. Soft tissues otherwise unremarkable. RAD/Hand Min 3 Views IMPRESSION: Erosive osteoarthritis. Electronically Signed: Ilir Venegas, at 20:58 EDT Tel , Service support ,
== END ==
PROVIDERS: Family Provider Internal Medicine; PCP Internal Medicine; Referring Provider Internal Medicine; Visit Provider Internal Medicine
DX: M25.50 Pain in unspecified joint (principal)
CPT/HCPCS: 73130

== ENCOUNTER → 2019-03-24 08:11 | Outpatient (CLI) | payer MEDICARE, OTHER, SELFPAY ==
[2018-07-20 10:52] VITALS: BMI 34.5
[2019-01-26 11:07] VITALS: BMI 34.9
--- NOTE | 2019-03-24 08:36 | BI_ITS ---
MAMMOGRAPHY - BILATERAL SCREENING 3-D TOMOSYNTHESIS REASON FOR EXAM: Female, 73 years old. PERTINENT HISTORY: No significant family history. TECHNIQUE: 2-D mammograms and 3-D Tomosynthesis of the breast (s) were performed. CAD was performed. COMPARISON: March 23, 2018 FINDINGS: The breast composition is of scattered fibroglandular tissue Scattered benign calcifications are seen. No dense spiculated masses or suspicious microcalcifications are identified. No architectural distortion is identified. There is no skin thickening or nipple retraction. There are 2 metallic markers in the inferior aspect of the right breast followed previous biopsies There has been no significant change since the prior study. BI/SCREEN MAMM (CAD) W/MARIS BILAT IMPRESSION: No mammographic signs of malignancy. Routine yearly mammograms recommended. ASSESSMENT CATEGORY: BIRADS Category 1: Negative. A letter regarding these results will be sent to the patient by the facility within 30 days. FOLLOW UP RECOMMENDATION: Yearly follow up mammogram recommended. (A) Approximately 10% of breast cancers are not detected by mammography. A normal mammogram should not delay biopsy of a clinically suspicious abnormality. Electronically Signed: Marissa Judge, at 14:00 EST Tel , Service support ,
== END ==
PROVIDERS: Family Provider Internal Medicine; PCP Internal Medicine; Referring Provider Internal Medicine; Visit Provider Internal Medicine
DX: Z12.31 Encounter for screening mammogram for malignant neoplasm of breast (principal)
CPT/HCPCS: 77063; 77067

== ENCOUNTER 2019-09-19 05:49 | Day surgery (SDC) | payer MEDICARE, BC, SELFPAY ==
[2019-08-31 09:53] VITALS: BMI 34.9
--- NOTE | 2019-08-31 09:58 | HP_ITS ---
Intake Vital Signs 08/31/19 Height 5 ft 3 in 08/31/19 Weight: 184 lb 5 oz 08/31/19 BMI 32.6 08/31/19 BP 138/77 H 08/31/19 Blood Pressure Location Lt brachial 08/31/19 Position Sitting 08/31/19 Respiration 18 08/31/19 Pulse 66 08/31/19 Pulse Source Monitor 08/31/19 Temp 98.0 F 08/31/19 Temp Source Oral 08/31/19 Pulse Oximetry (%) 98 08/31/19 Oxygen Delivery Method room air Intake Visit Reasons: Gastroesophageal reflux disease (GERD) Chief Complaint: GERD Outbound [employer] Required: No Is patient in pain?: No Allergies levofloxacin [From Levaquin] Allergy (Severe, Verified 08/31/19 09:49) dark urine, fever, sore throat amlodipine [From Lotrel] Allergy (Intermediate, Verified 08/31/19 09:49) sleepy-couldn't function benazepril [From Lotrel] Allergy (Intermediate, Verified 08/31/19 09:49) sleepy-couldn't function clarithromycin [From Biaxin] Allergy (Intermediate, Verified 08/31/19 09:49) Upset Stomach amoxicillin Allergy (Mild, Verified 08/31/19 09:49) rash codeine Adverse Reaction (Mild, Verified 08/31/19 09:49) GI upset lisinopril Adverse Reaction (Mild, Verified 08/31/19 09:49) sleepy Medications aspirin 81 mg tablet,delayed release 81 mg PO DAILY 04/07/18 [History Confirmed 08/31/19] fenofibrate 160 mg tablet 160 mg PO DAILY 04/07/18 [History Confirmed 08/31/19] losartan 25 mg tablet 25 mg PO QHS 04/07/18 [History Confirmed 08/31/19] metformin 500 mg tablet 500 mg PO BID 04/07/18 [History Confirmed 08/31/19] omeprazole 40 mg capsule,delayed release 40 mg PO DAILY 04/07/18 [History Confirmed 08/31/19] rosuvastatin 20 mg tablet 20 mg PO DAILY 04/07/18 [History Confirmed 08/31/19] amlodipine 10 mg tablet 10 mg PO DAILY 07/12/18 [History Confirmed 08/31/19] calcium carbonate-vitamin D3 600 mg-125 unit tablet 2 tab PO DAILY tab 07/12/18 [History Confirmed 08/31/19] clobetasol 0.05 % shampoo 1 applic TOPICAL DAILY 07/12/18 [History Confirmed 01/26/19] arginine HCl (L-arginine) 1,000 mg tablet 1,000 mg PO DAILY tab 01/26/19 [History Confirmed 08/31/19] cholecalciferol (vitamin D3) 10 mcg (400 unit) capsule 800 unit PO DAILY cap 01/26/19 [History Confirmed 08/31/19] omega-3 fatty acids-fish oil 360 mg-1,200 mg capsule 1 cap PO DAILY 01/26/19 [History Confirmed 08/31/19] ascorbic acid (vitamin C) 500 mg capsule mg PO DAILY cap 08/31/19 [History Confirmed 08/31/19] ferrous sulfate 325 mg (65 mg iron) tablet 65 mg PO DAILY tab 08/31/19 [History Confirmed 08/31/19] psyllium husk 0.4 gram capsule 0.8 g PO DAILY cap 08/31/19 [History Confirmed 08/31/19] [facility] Medical History (Updated 08/31/19 @ 09:[address] Christo Renner MD) Gastroesophageal reflux disease (Acute) Atherosclerotic heart disease of [place] coronary artery without angina pectoris (Chronic) Hyperlipidemia (Chronic) Essential hypertension (Chronic) Cardiac murmur (Chronic) GERD (gastroesophageal reflux disease) (Chronic) Obesity (Chronic) Osteoarthritis (Chronic) Type 2 diabetes mellitus (Chronic) Abnormal mammogram of right breast (Resolved) History of benign breast biopsy (Resolved) Surgical History (Updated 08/31/19 @ 09:44 by Eugenie Lindsay) History of arthroscopy of left knee (Acute) History of cholecystectomy (Resolved) History of colonoscopy (Resolved ~2007) History of neck surgery (Resolved) History of wisdom tooth extraction (Resolved) Family History (Updated 08/31/19 @ 09:47 by Eugenie Lindsay) Mother Breast cancer Sister Breast cancer Sister Breast cancer Diabetes Hypertension Father Heart disease Cancer skin cancer Brother Cancer Heart disease Social History (Updated 08/31/19 @ 11:[address] Christo Renner MD) Smoking Status: Never smoker alcohol intake: never substance use type: does not use caffeine: Yes HPI HPI HPI: TANVI ESCOTO, is a 74 F who presents to the office today for HPI HPI Surgical H&P: Yes HPI: TANVI ESCOTO, is a 74 F who presents to the office today for surgical consultation regarding gastroesophageal reflux disease and a previous history of a suspected esophageal ring and intermittent problems with severe choking. She is referred by Dr. Arlet Ricketts and a written copy of my surgical consult recommendations will be returned to her. The patient states that she has had GERD for at least 10 to 15 years. At that point in the past she had an upper endoscopy was told that she had a esophageal ring but does not recall whether she had dilatation performed. She has been on medication ever since. She is currently on omeprazole 40 mg daily. Occasionally she will have episodes with swallowing food where she will have very severe choking spells. Fortunately this does not happen very often but she is referred for evaluation. She has been doing some more walking and has lost a slight bit of weight. She is feeling optimistic about that. Her most recent colonoscopy was per myself May 20, 2018. No acute findings other than some hemorrhoids and scattered diverticula. She denies chest pain no shortness of breath no fever. She denies any change in her bowel habits ROS General General: Yes weight change; no appetite, fatigue, colon cancer, breast cancer or weakness HEENT HEENT: Yes difficulty swallowing; no eye injury, eye surgery, swollen glands or hoarseness Endo Endocrine: Yes diabetes mellitus; no thyroid disease, thyroid cancer, Hair loss, heat intolerance or cold intolerance Skin Skin: No rash or changing moles Breast Breast: No left breast lump, right breast lump, nipple discharge, breast pain, abnormal mammogram, abnormal US or breast enlargement Musc Musculoskeletal: Yes arthritis; no back problems, rheumatoid arthritis, gout or joint pain Cardio Cardiovascular: Yes murmur and high blood pressure; no pacemaker, heart disease, atrial fibrillation, heart attack, heart stent, palpitations, shortness of breat with exertion or chest pain Psych Psychiatric: No depression, anxiety or hearing voices Resp Respiratory: No shortness of breath, Yes sleep apnea, Yes cough, No COPD, No asthma, No emphysema, No wheezing Gastro Gastrointestinal: No abdominal pain, No nausea or vomiting, No diarrhea, No constipation, No blood in stool, Yes acid reflux, No hemorrhoids, No ulcers, No gallbladder problem, No black,tarry stools Volodymyr Hematologic: Yes blood thinners, No blood disorders, No bleeding, No anemia, No blood clots Neuro Neurologic: No system reviewed and no additional complaints, except as docu, No as per HPI, No abnormal walking, No abnormal hearing, No abnormal movements, No abnormal speech, No behavioral changes, No burning sensations, No confusion, No seizure-like activity, No unsteadiness, No dizziness, No localized weakness, No frequent falls, No headache(s), No lack of coordination, No loss of vision, No memory loss, No numbness, No other visual disturbances, No radiating pain, No restless legs, No sensory deficit, No fainting, No tingling, No tremor(s), No weakness, No other Exam Const General: cooperative, healthy appearing, comfortable, no acute distress Nutritional Appearance: obese Orientation: alert, awake, oriented x3 HENMT Head: normal to inspection Eyes General: appearance normal, both eyes and all related structures Chest Chest palpation & inspection: normal inspection of the chest Breast Palpation: No nipple discharge Resp Effort & Inspection: normal respiratory effort Auscultation: clear to auscultation bilaterally Cardio Rate: regular rate Rhythm: regular rhythm Heart Sounds: murmur GI Palpation: soft, no hepatosplenomegaly Percussion: normal to percussion Other: Overweight, I cannot detect any internal organs, normal bowel sounds Skin General: no rashes or lesions noted Neuro Cognition: normal cognition Extrem General: calf tenderness Psych Affect: normal affect Assessment & Plan 1. Gastroesophageal reflux disease, esophagitis presence not specified K21.9 Plan 74-year-old female with a history suggestive of gastroesophageal reflux disease with a reported previous history of an esophageal ring. She has recent increasing problems with severe choking episodes. Is not clear whether this correlates with reflux or hiatal hernia or progressive esophageal ring. The patient has been referred for diagnosis and treatment. I proposed with the patient a esophagogastroduodenoscopy with possible biopsy or polypectomy or dilatation if indicated. The patient does take fish oil and I have asked her to hold that medication. She has had an opportunity to ask and have questions answered. We will schedule and proceed at her discretion. She does want to pursue dilatation if clinically indicated at that same setting.. I very much appreciate the kind opportunity of assisting with her surgical care. Cc: Dr. Arlet Renner M.D., F.A.C.S. Coding Level of Care Code 67921 Diagnoses Gastroesophageal reflux disease, esophagitis presence not specified K21.9 ??Esophagitis presence: esophagitis presence not specified 08/31/19 1113 <Electronically signed by Christo herron MD> Date _ Christo Renner MD
[2019-09-19] VITALS (7 sets, daily range): BP systolic 119–141; BP diastolic 62–66; PULSE 61–71; RESP 16; TEMP 36.8–37.2; O2SAT 94–98; BMI 32.1
--- NOTE | 2019-09-19 | GASB_PTH ---
PATIENT: TANVI ESCOTO LOC: EN U#:[id number] AGE/SX: 74/F ROOM: RE09/19/[address]: Dr. Christo Renner MD : 1945 BED: DIS: 09/19/2019 SPEC #: [id number] RECD: 09/19/19 10:43 STATUS: PENNY RENancy #: [id number] LUCRETIA: 09/19/19 00:[address]: Christo Renner DEPT: SURGICAL PATHOLOGY RECD BY: Jemal Verdugo ENTERED: 09/19/19 10:43 SP TYPE: Gastric Bx OTHR DR: Dr. Arlet Ricketts MD Tissues: A - Gastric mucous membrane B - Gastric fundus C - Esophagus, NOS Procedures: Special Stain Group II Surgery Specimen Level IV Alcian Blue/PAS (control) HEADER OPERATION: EGD ([facility]) PRE-OP DIAGNOSIS: GERD TISSUE SUBMITTED: A - Antrum biopsy for histo and H. pylori, B - Fundic polyp biopsy, C - Distal esophagus biopsy MICROSCOPIC DIAGNOSIS A. Gastric antrum, biopsy: Mild chronic gastritis. See comment. B. Gastric fundus polyp, biopsy: Fundic gland polyp. C. Distal esophagus, biopsy: Gastroesophageal junction with mild chronic inflammation. Focal changes of reflux. No evidence of intestinal metaplasia. See comment. AM:kalani 09/20/19 COMMENT A. The results of immunohistochemistry for Helicobacter pylori will be reported separately ([id number]). C. Alcian blue/PAS stain with matched control supports the above diagnosis. MICROSCOPIC DESCRIPTION Slides are reviewed. GROSS DESCRIPTION A - Received in fixative is one container labeled with the patient's name and designated antrum biopsy. The specimen consists of one irregular fragment of light nelson soft tissue that measures 0.3 x 0.3 x 0.1 cm. The specimen is totally submitted in one cassette. B - Received in fixative is one container labeled with the patient's name and designated fundic polyp. The specimen consists of one irregular fragment of light nelson soft tissue that measures 0.3 x 0.3 x 0.1 cm. The specimen is totally submitted in one cassette. C - Received in fixative is one container labeled with the patient's name and designated distal esophagus. The specimen consists of two irregular fragments of light nelson soft tissue that in aggregate measure 0.6 x 0.6 x 0.1 cm. The specimen is totally submitted in one cassette. / AM:kalani 09/19/19 TC:3 CPT: 61720 x3, 20370
--- NOTE | 2019-09-19 06:32 | HP.PCM_ITS ---
Problem List (1) Gastroesophageal reflux disease Status: Acute Qualifiers: Esophagitis presence: esophagitis presence not specified History and Physical Date of Admission: 09/19/19 Intake Visit Reasons: Gastroesophageal reflux disease (GERD) Chief Complaint: GERD Mine [employer] Required: No Is patient in pain?: No Allergies levofloxacin [From Levaquin] Allergy (Severe, Verified 08/31/19 09:49) dark urine, fever, sore throat amlodipine [From Lotrel] Allergy (Intermediate, Verified 08/31/19 09:49) sleepy-couldn't function benazepril [From Lotrel] Allergy (Intermediate, Verified 08/31/19 09:49) sleepy-couldn't function clarithromycin [From Biaxin] Allergy (Intermediate, Verified 08/31/19 09:49) Upset Stomach amoxicillin Allergy (Mild, Verified 08/31/19 09:49) rash codeine Adverse Reaction (Mild, Verified 08/31/19 09:49) GI upset lisinopril Adverse Reaction (Mild, Verified 08/31/19 09:49) sleepy Medications aspirin 81 mg tablet,delayed release 81 mg PO DAILY 04/07/18 [History Confirmed 08/31/19] fenofibrate 160 mg tablet 160 mg PO DAILY 04/07/18 [History Confirmed 08/31/19] losartan 25 mg tablet 25 mg PO QHS 04/07/18 [History Confirmed 08/31/19] metformin 500 mg tablet 500 mg PO BID 04/07/18 [History Confirmed 08/31/19] omeprazole 40 mg capsule,delayed release 40 mg PO DAILY 04/07/18 [History Confirmed 08/31/19] rosuvastatin 20 mg tablet 20 mg PO DAILY 04/07/18 [History Confirmed 08/31/19] amlodipine 10 mg tablet 10 mg PO DAILY 07/12/18 [History Confirmed 08/31/19] calcium carbonate-vitamin D3 600 mg-125 unit tablet 2 tab PO DAILY tab 07/12/18 [History Confirmed 08/31/19] clobetasol 0.05 % shampoo 1 applic TOPICAL DAILY 07/12/18 [History Confirmed 01/26/19] arginine HCl (L-arginine) 1,000 mg tablet 1,000 mg PO DAILY tab 01/26/19 [History Confirmed 08/31/19] cholecalciferol (vitamin D3) 10 mcg (400 unit) capsule 800 unit PO DAILY cap 01/26/19 [History Confirmed 08/31/19] omega-3 fatty acids-fish oil 360 mg-1,200 mg capsule 1 cap PO DAILY 01/26/19 [History Confirmed 08/31/19] ascorbic acid (vitamin C) 500 mg capsule mg PO DAILY cap 08/31/19 [History Confirmed 08/31/19] ferrous sulfate 325 mg (65 mg iron) tablet 65 mg PO DAILY tab 08/31/19 [History Confirmed 08/31/19] psyllium husk 0.4 gram capsule 0.8 g PO DAILY cap 08/31/19 [History Confirmed 08/31/19] [facility] Medical History (Updated 08/31/19 @ 09:[address] Christo Renner MD) Gastroesophageal reflux disease (Acute) Atherosclerotic heart disease of [place] coronary artery without angina pectoris (Chronic) Hyperlipidemia (Chronic) Essential hypertension (Chronic) Cardiac murmur (Chronic) GERD (gastroesophageal reflux disease) (Chronic) Obesity (Chronic) Osteoarthritis (Chronic) Type 2 diabetes mellitus (Chronic) Abnormal mammogram of right breast (Resolved) History of benign breast biopsy (Resolved) Surgical History (Updated 08/31/19 @ 09:44 by Eugenie Lindsay) History of arthroscopy of left knee (Acute) History of cholecystectomy (Resolved) History of colonoscopy (Resolved ~2007) History of neck surgery (Resolved) History of wisdom tooth extraction (Resolved) Family History (Updated 08/31/19 @ 09:47 by Eugenie Lindsay) Mother Breast cancer Sister Breast cancer Sister Breast cancer Diabetes Hypertension Father Heart disease Cancer skin cancer Brother Cancer Heart disease Social History (Updated 08/31/19 @ 11:[address] Christo Renner MD) Smoking Status: Never smoker alcohol intake: never substance use type: does not use caffeine: Yes HPI HPI HPI: TANVI ESCOTO, is a 74 F who presents to the office today for HPI HPI Surgical H&P: Yes HPI: TANVI ESCOTO, is a 74 F who presents to the office today for surgical consultation regarding gastroesophageal reflux disease and a previous history of a suspected esophageal ring and intermittent problems with severe choking. She is referred by Dr. Arlet Ricketts and a written copy of my surgical consult recommendations will be returned to her. The patient states that she has had GERD for at least 10 to 15 years. At that point in the past she had an upper endoscopy was told that she had a esophageal ring but does not recall whether she had dilatation performed. She has been on medication ever since. She is currently on omeprazole 40 mg daily. Occasionally she will have episodes with swallowing food where she will have very severe choking spells. Fortunately this does not happen very often but she is referred for evaluation. She has been doing some more walking and has lost a slight bit of weight. She is feeling optimistic about that. Her most recent colonoscopy was per myself May 20, 2018. No acute findings other than some hemorrhoids and scattered diverticula. She denies chest pain no shortness of breath no fever. She denies any change in her bowel habits ROS General General: Yes weight change; no appetite, fatigue, colon cancer, breast cancer or weakness HEENT HEENT: Yes difficulty swallowing; no eye injury, eye surgery, swollen glands or hoarseness Endo Endocrine: Yes diabetes mellitus; no thyroid disease, thyroid cancer, Hair loss, heat intolerance or cold intolerance Skin Skin: No rash or changing moles Breast Breast: No left breast lump, right breast lump, nipple discharge, breast pain, abnormal mammogram, abnormal US or breast enlargement Musc Musculoskeletal: Yes arthritis; no back problems, rheumatoid arthritis, gout or joint pain Cardio Cardiovascular: Yes murmur and high blood pressure; no pacemaker, heart disease, atrial fibrillation, heart attack, heart stent, palpitations, shortness of breat with exertion or chest pain Psych Psychiatric: No depression, anxiety or hearing voices Resp Respiratory: No shortness of breath, Yes sleep apnea, Yes cough, No COPD, No asthma, No emphysema, No wheezing Gastro Gastrointestinal: No abdominal pain, No nausea or vomiting, No diarrhea, No constipation, No blood in stool, Yes acid reflux, No hemorrhoids, No ulcers, No gallbladder problem, No black,tarry stools Volodymyr Hematologic: Yes blood thinners, No blood disorders, No bleeding, No anemia, No blood clots Neuro Neurologic: No system reviewed and no additional complaints, except as docu, No as per HPI, No abnormal walking, No abnormal hearing, No abnormal movements, No abnormal speech, No behavioral changes, No burning sensations, No confusion, No seizure-like activity, No unsteadiness, No dizziness, No localized weakness, No frequent falls, No headache(s), No lack of coordination, No loss of vision, No memory loss, No numbness, No other visual disturbances, No radiating pain, No restless legs, No sensory deficit, No fainting, No tingling, No tremor(s), No weakness, No other Exam Const General: cooperative, healthy appearing, comfortable, no acute distress Nutritional Appearance: obese Orientation: alert, awake, oriented x3 HENMT Head: normal to inspection Eyes General: appearance normal, both eyes and all related structures Chest Chest palpation & inspection: normal inspection of the chest Breast Palpation: No nipple discharge Resp Effort & Inspection: normal respiratory effort Auscultation: clear to auscultation bilaterally Cardio Rate: regular rate Rhythm: regular rhythm Heart Sounds: murmur GI Palpation: soft, no hepatosplenomegaly Percussion: normal to percussion Other: Overweight, I cannot detect any internal organs, normal bowel sounds Skin General: no rashes or lesions noted Neuro Cognition: normal cognition Extrem General: calf tenderness Psych Affect: normal affect Assessment & Plan 1. Gastroesophageal reflux disease, esophagitis presence not specified K21.9 Plan 74-year-old female with a history suggestive of gastroesophageal reflux disease with a reported previous history of an esophageal ring. She has recent increasing problems with severe choking episodes. Is not clear whether this correlates with reflux or hiatal hernia or progressive esophageal ring. The patient has been referred for diagnosis and treatment. I proposed with the patient a esophagogastroduodenoscopy with possible biopsy or polypectomy or dilatation if indicated. The patient does take fish oil and I have asked her to hold that medication. She has had an opportunity to ask and have questions answered. We will schedule and proceed at her discretion. She does want to pursue dilatation if clinically indicated at that same setting.. I very much appreciate the kind opportunity of assisting with her surgical care. Cc: Dr. Arlet Rnener M.D., F.A.C.S. Coding Level of Care Code 80156 Diagnoses Gastroesophageal reflux disease, esophagitis presence not specified K21.9 ??Esophagitis presence: esophagitis presence not specified Patient presents with symptoms of choking suspicious for gastroesophageal reflux disease or possible esophageal stricturing or web. I propose for her a esophagogastroduodenoscopy with possible biopsy or polypectomy or possible hydrostatic dilatation if indicated. She has had an opportunity to ask and have questions answered. She is aware that she is presenting during the COVID-19 pandemic. She is aware that the [facility] administration suggests a low local incidence. She is aware that there is increased risk. Christo Renner M.D., F.A.C.S.
[2019-09-19] MEDS: Lactated Ringers 1,000 ML 100 ML IV (06:34)
[2019-09-19 06:41] LABS: Bedside Glucose 106 mg/dL (70-110)
--- NOTE | 2019-09-19 07:00 | IMM_PTH ---
PATIENT: TANVI ESCOTO LOC: EN U#:[id number] AGE/SX: 74/F ROOM: RE09/19/[address]: Dr. Christo Renner MD : 1945 BED: DIS: 09/19/2019 SPEC #: [id number] RECD: 09/19/19 12:05 STATUS: PENNY RENancy #: [id number] LUCRETIA: 09/19/19 07:[address]: Christo Renner DEPT: IMMUNOHISTOCHEMISTRY RECD BY: Nicky Wetzel ENTERED: 09/19/19 12:06 SP TYPE: IMMUNO OTHR DR: Dr. Arlet Ricketts MD Tissues: A - Stomach, NOS Procedures: H Pylori (initial) PHYSICIAN & INSTITUTION [place] [address] SPECIMEN INFORMATION: Tissue Source: A - Antrum biopsy Clinical Info: GERD Specimen Number: [id number] CPT code: 70232 METHODOLOGY: Deparaffinized sections of prefer/formalin-fixed tissue or PAP/DQ stained slides are incubated with monoclonal/polyclonal antibodies/oligonucleotide probes. Localization is made via biotin free immunoperoxidase method. Appropriate controls are performed and reacted as expected. Results on target cell population are indicated in the following table: RESULTS: ANTIBODY / CLONE RESULT Block A H Pylori (polyclonal) negative These tests were developed and their performance characteristics determined by [facility]. They may not have been cleared or approved by the U.S. Food and Drug Administration. The FDA has determined that such clearance or approval is not necessary. INTERPRETATION: A. Antrum, biopsy: Negative for Helicobacter pylori organisms. AM:kalani 09/21/19
--- NOTE | 2019-09-19 09:30 | OP.CCLET_ITS ---
09/19/2019 Arlet Ricketts Re : Upper GI endoscopy procedure for Ally Navarro Dear Liliam This procedure was performed on Thursday, September 19, 2019. My impressions and recommendations are as follows: Impressions : - Reflux esophagitis. Biopsied. - Z-line variable, 38 cm from the incisors. - Small hiatal hernia. - Erythematous mucosa in the antrum. Biopsied. - Multiple gastric polyps. Resected and retrieved. - Normal examined duodenum. Recommendations : - Telephone my office for pathology results in 1 week. - Discharge patient to home. - Resume previous diet. - Continue present medications Consider future evaluation for surgical reflux procedure if symptoms warrant. Would need manometry. . My findings are described in the full procedure note, which is enclosed. If I can be of further assistance, please feel free to contact me at Doctor phone number(s): Work: . Sincerely, Christo Renner MD 09/19/2019 7:30:08 AM This report has been signed electronically.
--- NOTE | 2019-09-19 09:30 | OP.EGD_ITS ---
Patient Name: Ally Navarro Procedure Date: 09/19/2019 7:07 AM Date of : 1945 Age: 74 Procedure: Upper GI endoscopy Indications: Suspected gastro-esophageal reflux disease Providers: Christo Renner MD Referring MD: Arlet Ricketts Medicines: See the Anesthesia note for documentation of the administered medications Complications: No immediate complications. Procedure: Pre-Anesthesia Assessment: - Prior to the procedure, a History and Physical was performed, and patient medications and allergies were reviewed. The patient's tolerance of previous anesthesia was also reviewed. The risks and benefits of the procedure and the sedation options and risks were discussed with the patient. All questions were answered, and informed consent was obtained. Prior Anticoagulants: The patient has taken no previous anticoagulant or antiplatelet agents. ASA Grade Assessment: II - A patient with mild systemic disease. After reviewing the risks and benefits, the patient was deemed in satisfactory condition to undergo the procedure. After obtaining informed consent, the endoscope was passed under direct vision. Throughout the procedure, the patient's blood pressure, pulse, and oxygen saturations were monitored continuously. The gastroscope was introduced through the mouth, and advanced to the second part of duodenum. The upper GI endoscopy was accomplished without difficulty. The patient tolerated the procedure well. Scope In: 7:17:01 AM Scope Out: 7:22:26 AM Total Procedure Duration Time 0 hours 5 minutes 25 seconds Findings: Esophagitis with no bleeding was found 38 cm from the incisors. Biopsies were taken with a cold forceps for histology. The Z-line was variable and was found 38 cm from the incisors. A small hiatal hernia was present. Diffuse mildly erythematous mucosa without bleeding was found in the gastric antrum. Biopsies were taken with a cold forceps for histology. Multiple sessile polyps with no stigmata of recent bleeding were found in the gastric fundus. The polyp was removed with a cold biopsy forceps. Resection and retrieval were complete. The examined duodenum was normal. Impression: - Reflux esophagitis. Biopsied. - Z-line variable, 38 cm from the incisors. - Small hiatal hernia. - Erythematous mucosa in the antrum. Biopsied. - Multiple gastric polyps. Resected and retrieved. - Normal examined duodenum. Recommendation: - Telephone my office for pathology results in 1 week. - Discharge patient to home. - Resume previous diet. - Continue present medications Consider future evaluation for surgical reflux procedure if symptoms warrant. Would need manometry. . Procedure Code(s): --- Professional --- 15609, Esophagogastroduodenoscopy, flexible, transoral; with biopsy, single or multiple Diagnosis Code(s): --- Professional --- K21.0, Gastro-esophageal reflux disease with esophagitis K22.8, Other specified diseases of esophagus K44.9, Diaphragmatic hernia without obstruction or gangrene K31.89, Other diseases of stomach and duodenum K31.7, Polyp of stomach and duodenum CPT copyright 2017 [employer]. All rights reserved. The codes documented in this report are preliminary and upon cpc coder review may be revised to meet current compliance requirements. Christo Renner MD 09/19/2019 7:30:08 AM This report has been signed electronically. Number of Addenda: 0 Note Initiated On: 09/19/2019 7:07 AM
== END 2019-09-19 08:07 | disposition home or self-care (01) ==
LOC: EN 05:50 → AC 05:50
PROVIDERS: PCP Internal Medicine; Referring Provider Internal Medicine; Visit Provider Surgery
PROC: 0DJ08ZZ Inspection of Upper Intestinal Tract, Via Natural or Artificial Opening Endoscopic (ICD-10-PCS; CPT 43235; principal; 2019-09-19 06:55)
DX: K29.50 Unspecified chronic gastritis without bleeding (principal); K21.0 Gastro-esophageal reflux disease with esophagitis; K44.9 Diaphragmatic hernia without obstruction or gangrene; K31.7 Polyp of stomach and duodenum; Z11.59 Encounter for screening for other viral diseases; I25.10 Atherosclerotic heart disease of native coronary artery without angina pectoris; E66.9 Obesity, unspecified; M19.90 Unspecified osteoarthritis, unspecified site; E11.9 Type 2 diabetes mellitus without complications; G47.30 Sleep apnea, unspecified; E78.00 Pure hypercholesterolemia, unspecified; Z86.2 Personal history of diseases of the blood and blood-forming organs and certain disorders involving the immune mechanism; Z78.0 Asymptomatic menopausal state; Z79.82 Long term (current) use of aspirin; Z79.84 Long term (current) use of oral hypoglycemic drugs; Z79.899 Other long term (current) drug therapy
CPT/HCPCS: 43239; 82962; 87635; 88305; 88313; 88342; G2023; J7120; J2405; U0004

== ENCOUNTER → 2019-09-21 08:49 | Outpatient (CLI) | payer MEDICARE, BC, SELFPAY ==
[2019-08-31 09:53] VITALS: BMI 34.9
[2019-09-19 06:12] VITALS: BMI 32.1
--- NOTE | 2019-09-21 08:52 | US_ITS ---
STUDY: ULTRASOUND BREAST - RIGHT REASON FOR EXAM: Female, 74 years old. Palpable lump in the right breast. TECHNIQUE: Axial and longitudinal images of the RIGHT breast were performed with a high resolution ultrasound transducer. # OF IMAGES: 13 COMPARISON: Comparison is made with prior mammogram done earlier in the day as well as prior ultrasound of the right breast dated March 29, 2018. FINDINGS: RIGHT Breast: There is a 3 mm x 3 mm x 3 mm well-defined hypoechoic nodule at the 12:00 position of the breast of 4 cm from the nipple. US/Breast Limited Unilateral IMPRESSION: Stable 2 mm x 3 mm x 3 mm well-defined hypoechoic nodule at the 12:00 position breast at 4 cm from nipple. Routine mammographic follow-up is recommended. ASSESSMENT CATEGORY: BIRADS Category 2: Benign. A letter regarding these results will be sent to the patient by the facility within 30 days. Electronically Signed: Shar Whitley, at 13:05 EDT , Service support ,
--- NOTE | 2019-09-21 08:52 | BI_ITS ---
MAMMOGRAPHY - BILATERAL DIAGNOSTIC REASON FOR EXAM: Female, 74 years old. Right breast lump. PERTINENT HISTORY: Sisters with breast cancer. Mother with breast cancer. TECHNIQUE: Digital bilateral breast howard (3D mammographic acquisition) in the CC and MLO projections. 2-D mediolateral oblique (MLO) and craniocaudad (CC) views of both breasts were obtained. CAD: Full Field Digital Mammography with Computer Added Detection was performed. COMPARISON: Comparison is made with prior examination dated March 24, 2019 and March 23, 2018. FINDINGS: Breast Composition: There are scattered areas of fibroglandular density. There are no dominant masses or suspicious calcifications. 2 tissue markers are seen in the inferior central and medial aspects of the right breast. No other significant abnormalities are identified. There has been no significant change since the prior study. BI/DIAG MAMM W/CAD, UNILAT IMPRESSION: Stable bilateral diagnostic mammogram. With the patient''s history of a palpable lump in the right breast, correlation with ultrasound is recommended. ASSESSMENT CATEGORY: BIRADS Category 0: Incomplete. Need additional imaging evaluation. A letter regarding these results will be sent to the patient by the facility within 30 days. Approximately 10% of breast cancers are not detected by mammography. A normal mammogram should not delay biopsy of a clinically suspicious abnormality. Electronically Signed: Shar Whitley, at 9:55 EDT , Service support ,
== END ==
PROVIDERS: PCP Internal Medicine; Referring Provider Internal Medicine; Visit Provider Internal Medicine
DX: N63.41 Unspecified lump in right breast, subareolar (principal)
CPT/HCPCS: 76642; 77061; 77065; G0279

== ENCOUNTER → 2020-03-26 09:21 | Outpatient (CLI) | payer MEDICARE, BC, SELFPAY ==
[2019-09-19 06:12] VITALS: BMI 32.1
[2020-02-01 09:59] VITALS: BMI 30.9
--- NOTE | 2020-03-26 09:22 | BI_ITS ---
MAMMOGRAPHY - BILATERAL SCREENING REASON FOR EXAM: Female, 74 years old. Routine annual screening examination. PERTINENT HISTORY: Sisters with breast cancer. Mother with breast cancer. TECHNIQUE: Digital bilateral breast maris (3D mammographic acquisition) in the CC and MLO projections. 2-D mediolateral oblique (MLO) and craniocaudad (CC) views of both breasts were obtained. CAD: Full Field Digital Mammography with Computer Added Detection was performed. COMPARISON: Comparison is made with prior examination dated 09/21/2019 and 03/24/2019. FINDINGS: Breast Composition: There are scattered areas of fibroglandular density. There are no dominant masses or suspicious calcifications. There are 2 tissue markers once again seen in the inferior central medial aspect of the right breast. No other significant abnormalities are identified. There has been no significant change since the prior study. BI/SCREEN MAMM (CAD) W/MARIS BILAT IMPRESSION: Stable bilateral screening mammogram. Yearly follow-up mammogram recommended. (A) ASSESSMENT CATEGORY: BIRADS Category 2: Benign. A letter regarding these results will be sent to the patient by the facility within 30 days. Approximately 10% of breast cancers are not detected by mammography. A normal mammogram should not delay biopsy of a clinically suspicious abnormality. [id number] Electronically Signed: Shar Whitley, at 11:22 EST , Service support ,
--- NOTE | 2020-03-26 09:24 | BD_ITS ---
STUDY: DUAL ENERGY X-RAY ABSORPTIOMETRY / DXA REASON FOR EXAM: Female, 74 years old. Age of ena 57. Pat is 196.4# and 62 and quot; a loss of 1.5 and quot; per pat. Type II diabetic and takes metformin. Takes 1200 mg calcium. Exercises a little. Hx of a cervical fusion. TECHNIQUE: Bone Mineral Density (BMD) measurements of lumbar spine and bilateral hips were obtained. COMPARISON: Comparison is made with prior study dated 03/23/2018. FINDINGS: Lumbar Spine (L1-L4): g/cm2 (1.255) / T-score (0.6) / Z-score (2.3) Findings are suggestive of normal bone density with a low fracture risk. Left Femur Total: g/cm2 (1.109) / T-score (0.8) / Z-score (2.4) Left Femoral Neck: g/cm2 (1.047) / T-score (0.1) / Z-score (1.9) Right Femur Total: g/cm2 (1.061) / T-score (0.4) / Z-score (2.0) Right Femoral Neck: g/cm2 (1.026) / T-score (-0.1) / Z-score (1.7) The T-Scores on the most recent prior examination were: Lumbar Spine (L1-L4): There has been improvement of bone density since the previous examination. Left Femur Total: which represents a worsening of 0.9%. Right Femur Total: which represents a worsening of 5.4%. BD/Dexa Bone Density Study IMPRESSION: The patient is considered normal as outlined below according to World [place] Organization (WHO) criteria with a low fracture risk. There has been worsening of bone density since the previous examination. Reference Information: The T-score is the number of standard deviations above or below the standard which is normal for young adults at their peak bone mineral density. The World Health Organization (WHO) interprets the T-scores as follows: Above -1 Normal bone density Between -1 and -2.5 Osteopenia Equal to / or below -2.5 Osteoporosis As a practical clinical guideline, osteopenia may be graded as follows: Mild -1 through -1.5 Moderate -1.6 through -2.0 Severe -2.1 through -2.4 The Z-score is the number of standard deviations above or below age-matched controls. A Z-score of less than -1.5 would be considered abnormal. References: 1. NIH Osteoporosis and Related Bone Diseases www osteo.org 2. International Society for Clinical Densitometry www iscd.org 3. National Osteoporosis Foundation www nof.org Electronically Signed: Shar Whitley, at 14:56 EST , Service support ,
== END ==
PROVIDERS: PCP Internal Medicine; Referring Provider Internal Medicine; Visit Provider Internal Medicine
DX: Z12.31 Encounter for screening mammogram for malignant neoplasm of breast (principal); Z78.0 Asymptomatic menopausal state
CPT/HCPCS: 77063; 77067; 77080

== ENCOUNTER → 2020-05-02 08:53 | Outpatient (CLI) | payer MEDICARE, BC, SELFPAY ==
[2020-02-01 09:59] VITALS: BMI 30.9
--- NOTE | 2020-05-02 08:58 | CDU_ITS ---
Reason For Study: Carotid stenosis Rt. Velocities/BP Lt. Velocities/BP Prox CCA 81.2/12.1 cm/sec. Prox CCA 71.1/14.5 cm/sec. Mid CCA 63/12.4 cm/sec. Mid CCA 68.3/12.6 cm/sec. Dist CCA 58.6/12.4 cm/sec. Dist CCA 44.7/9.7 cm/sec. Prox ICA 37.1/11.6 cm/sec. Prox ICA 50.3/11.6 cm/sec. Mid ICA 59.8/19.2 cm/sec. Mid ICA 64.5/17.3 cm/sec. Dist ICA 58/14.5 cm/sec. Dist ICA 85.3/26.7 cm/sec. Rt. ICA/CCA = 0.9. Lt. ICA/CCA = 1.2. Prox ECA 49.8 cm/sec. Prox ECA 55 cm/sec. Rt. Vert. 38.1/9.7 cm/sec. Lt. Vert. 40.1/7.3 cm/sec. Right Extracranial There is intimal thickening but no significant atherosclerotic plaque noted in the right common carotid artery. There is heterogeneous, irregular atherosclerotic plaque noted in the right internal carotid artery. There is intimal thickening but no significant atherosclerotic plaque noted in the right external carotid artery. Antegrade flow is noted in the right vertebral artery. Left Extracranial There is intimal thickening but no significant atherosclerotic plaque noted in the left common carotid artery. There is heterogeneous, irregular atherosclerotic plaque noted in the left internal carotid artery. There is heterogeneous, irregular atherosclerotic plaque noted in the left external carotid artery. Antegrade flow is noted in the left vertebral artery. Procedure Carotid Duplex 44375. This is a Carotid Duplex examination using B-mode, color flow and specral Doppler. Exam performed in department. Interpretation Summary Mild (<50%) stenosis right extracranial internal carotid. Mild (<50%) stenosis left extracranial internal carotid. Flow within the vertebral arteries is antegrade bilaterally. Ordering Physician: Arlet Ricketts Referring Physician: Arlet Ricketts Performed By: Mellissa Billings RVT
== END ==
PROVIDERS: PCP Internal Medicine; Referring Provider Internal Medicine; Visit Provider Internal Medicine
DX: I65.23 Occlusion and stenosis of bilateral carotid arteries (principal)
CPT/HCPCS: 93880

== ENCOUNTER → 2021-03-27 14:42 | Outpatient (CLI) | payer MEDICARE, BC, SELFPAY ==
--- NOTE | 2021-03-27 14:44 | BI_ITS ---
MAMMOGRAPHY - BILATERAL SCREENING REASON FOR EXAM: Female, 75 years old. Routine annual screening examination. PERTINENT HISTORY: Sisters with breast cancer. Mother with breast cancer. TECHNIQUE: Digital bilateral breast maris (3D mammographic acquisition) in the CC and MLO projections. 2-D mediolateral oblique (MLO) and craniocaudad (CC) views of both breasts were obtained. CAD: Full Field Digital Mammography with Computer Added Detection was performed. COMPARISON: Comparison is made with prior study dated 03/26/2020 and 09/21/2019. FINDINGS: Breast Composition: There are scattered areas of fibroglandular density. There are no dominant masses or suspicious calcifications. 2 tissue clip markers are once again seen in the inferior slightly medial aspect of the right breast. No other significant abnormalities are identified. There has been no significant change since the prior study. BI/SCRN MAMM (CAD)W/MARIS BILAT IMPRESSION: Stable bilateral screening mammogram. Yearly follow-up mammogram recommended. (A) ASSESSMENT CATEGORY: BIRADS Category 2: Benign. A letter regarding these results will be sent to the patient by the facility within 30 days. Approximately 10% of breast cancers are not detected by mammography. A normal mammogram should not delay biopsy of a clinically suspicious abnormality. [id number] Electronically Signed: Shar Whitley MD at 15:45 EST , Service support ,
== END ==
PROVIDERS: PCP Internal Medicine; Referring Provider Internal Medicine; Visit Provider Internal Medicine
DX: Z12.31 Encounter for screening mammogram for malignant neoplasm of breast (principal)
CPT/HCPCS: 77063; 77067

== ENCOUNTER 2021-06-09 09:30 | Outpatient (RCR) | payer MEDICARE, BC, SELFPAY ==
--- NOTE | 2021-06-04 08:18 | HP.OTEVAL ---
Patient's Visit Information TANVI ESCOTO is a 76 year old F, referred to Occupational Therapy by Dr. Castro Trammell, DO, with a diagnosis of OA wrist and thumb pain. Date of Evaluation: 06/03/21 Occupational Therapist: Celeste Jade, OTR/Rui, CHT - Subjective This 76 year old female was seen for OT eval with dx of left primary osteoarthritis, left wrist pain -. pt states she has had a number of different cortisone injections ( 2-3 in wrist and 1 in injection in her thumb). pt [facility] or more [facility]- for left wrist pain- states she has tried to use a wrist brace they recommended. pt states she continues to struggle with pain- pt went to Dr. Trammell and had new x-rays- was rec'd sx for her thumb- pt wanted to wait and had cortisone shot. pt states she does cooking, cleaning and gardening- pt would like to be able to continue with theses daily tasks. - ADLs Bathing: Squeeze shampoo bottle Kitchen: Peel fruits & vegetables, Open jars Household: Sweep/mop Comments: daily tasks increase hand pain - Pain left mixer foam rubber 4 Pain Intensity Range: 3, 5 - ROM Wrist: right 55/50 left 55/50 CMC: right 25 left 30 MP: right 55 left 50 IP: right 25 left 35 Radial Abduction: right 30 left 30 Opposition: right 10 left 10 ROM Comments: pt demo right MP hyper extension +15* left +25* indicating bilateral thumb instability. right wrist RD 20* UD 30*. left wrist RD 20* UD 20*. pt demo with bilateral PIP and DIP deformities limiting pts ind. with tight composite fist - Strength Cardiovascular Operating Room Nurse: right 22# left 25# Lateral Pinch: right 4# left 6# Tripod Pinch: right 3# left 4# - Sensation Sensation Comments: denies - Quick DASH-Disab of Arm,Shoulder& Hand Quick DASH Score: 27.2725 - Goals Goal:: pt will demo limited bilateral thumb instability by noted decrease in hyper ext of MP by 10* by d.c Goal:: pt will report a decrease in bilateral hand pain to 1/10 with use of ad. eq. and joint protection mario. by d.c Goal:: Pt will demo understanding of joint protection and ergonomics when performing BADLs and IADLs by d/c. Pt will demo understanding of adaptive Equipment use to decrease stress on joints to allow pt to perform BADSL and IADLS at ZHANG level. Goal:: Pt will demo understanding of orthosis use and precautions by end of 1st session. Pt will return to clinic for orthosis adjustment. pt will demo ind. doffing and donning of supportive cmc/MP orthosis by d./c - Rehabilitation General Assessment: pt demo with significant thumb instability and OA deformities limiting pts ind. with her ADLs- pt has pain and stiffness and states pain fluctuates depending on what she does- pt is limited with her IND with ADls and IADLs due to pain and limited ROM. pt demo need for skilled OT services 1x week for 4 weeks to ed. pt on dx, conservative joint protection, ad. eq. and use of orthosis for support and protection. pt agrees to POC. Rehabilitation Potential: Fair - Anticipated Interventions A/AAROM/PROM, Modalities, Orthoses, Joint Protection/Energy Conservation, Ergonomic Education, Education re assistive Equipment, Education re Diagnosis, Home Program - Visit Plan Frequency: 1x/Week Duration: 4 Weeks TEXT: Thank you for the opportunity to evaluate your patient. For Medicare and Medicare HMO plans, please review the plan of care and approve it. It will need to be FAXED BACK to us at [phone] for Medicare purposes. Please let me know if there are questions or concerns regarding this plan of care. Physician Signature: Date:
== END 2021-06-09 19:00 | disposition home or self-care (01) ==
LOC: OT 09:30
PROVIDERS: PCP Internal Medicine; Referring Provider Student in an Organized Health Care Education/Training Program; Visit Provider Student in an Organized Health Care Education/Training Program
DX: M19.032 Primary osteoarthritis, left wrist (principal)
CPT/HCPCS: 97166; 97530

== ENCOUNTER 2021-07-03 13:48 | Outpatient (CLI) | payer MEDICARE, BC, SELFPAY ==
--- NOTE | 2021-07-03 13:54 | ECHOD_ITS ---
Reason For Study: MURMUR Procedure This was a 2D Doppler, Color Flow transthoracic echocardiogram. Exam performed in department. Left Ventricle Normal LV size. Left ventricular systolic function is normal. The estimated ejection fraction is 60 %. Stage 1 diastolic dysfunction. No regional wall motion abnormalities noted. Right Ventricle Normal right ventricle. Normal systolic function. Atria Normal left atrium. Mitral Valve Normal mitral valve. Tricuspid Valve Normal tricuspid valve. Mild tricuspid valve insufficiency. Pulmonary artery systolic pressure is 26 mmHg. Aortic Valve Normal aortic valve. Pulmonic Valve Normal pulmonic valve. Great Vessels Normal aortic root. The pulmonary artery is normal size. Normal inferior vena cava. Pericardium/Pleural No pericardial effusion. MMode/2D Measurements & Calculations LVIDd: 5.0 cm IVSd: 0.80 cm Ao root diam: 3.2 cm LVIDs: 3.2 cm LVPWd: 0.96 cm RVDd: 2.8 cm FS: 35.2 % LAV(MOD-bp): 44.2 ml LA A4 area: 12.8 cm2 LA dimension(2D): 3.3 cm LAV(MOD-bp) Indexed: 24.8 ml/m2 LAV(MOD-sp2): 51.0 ml LAV(MOD-sp4): 30.6 ml RA A4 area: 10.8 cm2 Time Measurements MV dec time: 0.23 sec Doppler Measurements & Calculations MV E max thiago: 72.2 cm/sec Lat Peak E' Thiago: 5.8 cm/sec Med Peak E' Thiago: 7.4 cm/sec MV A max thiago: 103.0 cm/sec E/E' lat: 12.4 E/E' med: 9.8 MV E/A: 0.70 Ao V2 max: 143.8 cm/sec LV V1 max: 115.6 cm/sec PA V2 max: 113.1 cm/sec Ao max P.3 mmHg LV V1 max P.3 mmHg TR max thiago: 240.3 cm/sec TR max P.1 mmHg ECHO/Echo Complete Interpretation Summary Normal LV size. Left ventricular systolic function is normal. The estimated ejection fraction is 60 %. Stage 1 diastolic dysfunction. Pulmonary artery systolic pressure is 26 mmHg. Ordering Physician: Arlet Ricketts Referring Physician: Arlet Ricketts Performed By: Eugenie Yadav RDCS, RVT
== END 2021-07-03 23:59 | disposition home or self-care (01) ==
LOC: CVS 13:51
PROVIDERS: PCP Internal Medicine; Referring Provider Internal Medicine; Visit Provider Internal Medicine
DX: R01.1 Cardiac murmur, unspecified (principal)
CPT/HCPCS: 93306

== ENCOUNTER → 2021-09-23 | Outpatient (CLI) | payer MEDICARE, BC, SELFPAY ==
--- NOTE | 2021-09-23 14:14 | RAD_ITS ---
STUDY: X-RAY CHEST REASON FOR EXAM: Female, 76 years old. COUGH -- STAT TECHNIQUE: PA and lateral views of the chest. COMPARISON: 07/17/2016 FINDINGS: Status post anterior cervical discectomy and fusion lower cervical spine. The lungs are clear and expanded. There is no demonstrated pleural abnormality. Normal size heart. Normal mediastinum and deepa. Normal visualized pulmonary arteries. Normal visualized aortic arch and descending thoracic aorta. Normal visualized thoracic spine. Normal visualized ribs, clavicles, and shoulders. There is no demonstrated abnormality of the visualized soft tissue structures of the upper abdomen. RAD/Chest PA and Lateral IMPRESSION: Normal x-ray examination of the chest. Electronically Signed: Vance Quinn MD at 15:00 EDT ,
== END | disposition home or self-care (01) ==
PROVIDERS: PCP Internal Medicine; Referring Provider Internal Medicine; Visit Provider Internal Medicine
DX: R05.9 Cough, unspecified (principal)
CPT/HCPCS: 71046

== ENCOUNTER → 2022-04-09 | Outpatient (CLI) | payer MEDICARE, BC, SELFPAY ==
--- NOTE | 2022-04-09 14:22 | BI_ITS ---
MAMMOGRAPHY - BILATERAL SCREENING REASON FOR EXAM: Female, 76 years old. Routine annual screening examination. PERTINENT HISTORY: Sisters with breast cancer. Mother with breast cancer. TECHNIQUE: Digital bilateral breast maris (3D mammographic acquisition) in the CC and MLO projections. 2-D mediolateral oblique (MLO) and craniocaudad (CC) views of both breasts were obtained. CAD: Full Field Digital Mammography with Computer Added Detection was performed. COMPARISON: Comparison is made with prior study dated 03/27/2021 and 03/26/2020. FINDINGS: Breast Composition: There are scattered areas of fibroglandular density. There are no dominant masses or suspicious calcifications. A tissue clip marker is seen in the 3 mm nodule in the deep central portion of the right breast. A tissue clip marker is also seen in the inferior medial aspect of the right breast. No other significant abnormalities are identified. There has been no significant change since the prior study. BI/SCRN MAMM (CAD)W/MARIS BILAT IMPRESSION: Stable bilateral screening mammogram. Yearly follow-up mammogram recommended. (A) ASSESSMENT CATEGORY: BIRADS Category 2: Benign. A letter regarding these results will be sent to the patient by the facility within 30 days. Approximately 10% of breast cancers are not detected by mammography. A normal mammogram should not delay biopsy of a clinically suspicious abnormality. [id number] Electronically Signed: Shar Whitley MD at 10:26 EST ,
--- NOTE | 2022-04-09 14:29 | BD_ITS ---
STUDY: DUAL ENERGY X-RAY ABSORPTIOMETRY / DXA REASON FOR EXAM: Female, 76 years old. Z780 TECHNIQUE: Bone Mineral Density (BMD) measurements of lumbar spine and bilateral hips were obtained. COMPARISON: Comparison is made with prior study 03/26/2020. FINDINGS: Lumbar Spine (L1-L4): g/cm2 (1.075) / T-score (0.4) / Z-score (2.8) Findings are suggestive of normal bone density with a low fracture risk. Left Femur Total: g/cm2 (0.980) / T-score (0.3) / Z-score (2.1) Left Femoral Neck: g/cm2 (0.827) / T-score (-0.2) / Z-score (1.9) Right Femur Total: g/cm2 (0.897) / T-score (-0.4) / Z-score (1.4) Right Femoral Neck: g/cm2 (0.785) / T-score (-0.6) / Z-score (1.5) The T-Scores on the most recent prior examination were: Lumbar Spine (L1-L4): There has been worsening of bone density since the previous examination. Left Femur Total: which represents a worsening of 5.8%. Right Femur Total: which represents a worsening of 9.7%. BD/Dexa Bone Density Study IMPRESSION: The patient is considered normal as outlined below according to [place] Organization (WHO) criteria with a low fracture risk. There has been worsening of bone density since the previous examination. Reference Information: The T-score is the number of standard deviations above or below the standard which is normal for young adults at their peak bone mineral density. The World Health Organization (WHO) interprets the T-scores as follows: Above -1 Normal bone density Between -1 and -2.5 Osteopenia Equal to / or below -2.5 Osteoporosis As a practical clinical guideline, osteopenia may be graded as follows: Mild -1 through -1.5 Moderate -1.6 through -2.0 Severe -2.1 through -2.4 The Z-score is the number of standard deviations above or below age-matched controls. A Z-score of less than -1.5 would be considered abnormal. References: 1. NIH Osteoporosis and Related Bone Diseases www osteo.org 2. International Society for Clinical Densitometry www iscd.org 3. National Osteoporosis Foundation www nof.org Electronically Signed: Shar Whitley MD at 9:18 EST ,
== END | disposition home or self-care (01) ==
LOC: OPBD 14:20
PROVIDERS: PCP Internal Medicine; Visit Provider Internal Medicine
DX: Z12.31 Encounter for screening mammogram for malignant neoplasm of breast (principal); N63.41 Unspecified lump in right breast, subareolar; N63.14 Unspecified lump in the right breast, lower inner quadrant; Z80.3 Family history of malignant neoplasm of breast; Z78.0 Asymptomatic menopausal state
CPT/HCPCS: 77063; 77067; 77080

== ENCOUNTER → 2022-05-28 | Outpatient (CLI) | payer MEDICARE, BC, SELFPAY ==
--- NOTE | 2022-05-28 13:00 | ECHOD_ITS ---
Reason For Study: Murmur Procedure This was a 2D Doppler, Color Flow transthoracic echocardiogram. Exam performed in department. Left Ventricle Normal LV size. Left ventricular systolic function is normal. The estimated ejection fraction is 60 %. No regional wall motion abnormalities noted. Right Ventricle Normal RV size. Normal systolic function. Atria Normal left atrium. Normal right atrium. Mitral Valve Normal mitral valve. Tricuspid Valve Normal tricuspid valve. Aortic Valve Normal aortic valve. Trisinus/trileaflet aortic valve. Pulmonic Valve Normal pulmonic valve. Great Vessels Normal aortic root. The pulmonary artery is normal size. Normal inferior vena cava. Pericardium/Pleural No pericardial effusion. MMode/2D Measurements & Calculations LVIDd: 4.9 cm IVSd: 0.98 cm Ao root diam: 3.4 cm LVIDs: 3.0 cm LVPWd: 0.83 cm LA dimension: 3.3 cm RVDd: 3.3 cm FS: 38.3 % LAV(MOD-bp): 45.0 ml LA A4 area: 14.1 cm2 RA A4 area: 11.7 cm2 LAV(MOD-bp) Indexed: 25.2 ml/m2 LAV(MOD-sp2): 48.0 ml LAV(MOD-sp4): 36.2 ml Time Measurements MV dec time: 0.26 sec Doppler Measurements & Calculations MV E max thiago: 86.9 cm/sec Lat Peak E' Thiago: 10.2 cm/sec Med Peak E' Thiago: 9.2 cm/sec MV A max thiago: 128.9 cm/sec E/E' lat: 8.6 E/E' med: 9.5 MV E/A: 0.67 MV V2 max: 139.8 cm/sec MV P1/2t max thiago: 107.1 cm/sec Ao V2 max: 164.0 cm/sec MV max P.8 mmHg MV P1/2t: 92.0 msec Ao max P.8 mmHg MV V2 mean: 66.4 cm/sec MV dec slope: 341.2 cm/sec2 Ao V2 mean: 107.9 cm/sec MV mean P.1 mmHg MVA(P1/2t): 2.4 cm2 Ao mean P.5 mmHg MV V2 VTI: 46.1 cm Ao V2 VTI: 38.8 cm AV (velocity ratio): 0.80 LV V1 max: 129.5 cm/sec MR max thiago: 426.7 cm/sec PA V2 max: 138.2 cm/sec LV V1 max P.7 mmHg MR max P.8 mmHg PA V2 mean: 99.9 cm/sec LV V1 mean P.5 mmHg LV V1 mean: 87.2 cm/sec LV V1 VTI: 31.2 cm TR max thiago: 252.3 cm/sec TR max P.5 mmHg ECHO/Echo Complete Interpretation Summary Normal LV size. Left ventricular systolic function is normal. The estimated ejection fraction is 60 %. Structurally normal valves. Ordering Physician: Arlet Ricketts Performed By: Mil Ordoñez RCS
== END | disposition home or self-care (01) ==
LOC: CVS 12:58
PROVIDERS: PCP Internal Medicine; Visit Provider Internal Medicine
DX: R01.1 Cardiac murmur, unspecified (principal)
CPT/HCPCS: 93306

== ENCOUNTER 2022-10-26 10:00 | Outpatient (RCR) | payer MEDICARE, BC, SELFPAY ==
--- NOTE | 2022-09-28 10:55 | HP.PTEVAL_ITS ---
Patient's Visit Information TANVI ESCOTO is a 77 year old F referred to Physical Therapy by Dr. Arlet Ricketts MD with a diagnosis of HIP BURSITIS ,LBP. Date of Evaluation: 09/28/22 Physical Therapist: Ankur Avery PT, Cert MDT, OCS - Visit Plan Frequency: 2x /Week Duration: 4 Weeks Plan: PT INTERVENTIONS LUMBAR FLEXION , LE FLEXABLITY ,DLS ,POSTURAL EX'S ,MANUAL THERAPY /STICK I TBAND AND MODALITIES - Subjective This 77 y/o female presents to physical therapy with LBP and hip pain. Patient back pain ~ 2 months and and hip pain last year. Patient noticed pain weeding in yard and flower beds. Patient seen see DR soolmon cortisone injection in hips. Patient had no x-rays or MRI . No medication. Pain located buttock to lateral hip and back pain when bending. Aggravating factors bending ,lifting ,sitting . Alleviating factors walking and standing. Coughing/sneezing -. Bowel/bladder-. Denies paresthesia/tingling. Patient pain affects sleeping . Patient pain affects QOL and function. Patient goals to have no pain. SOCIAL: single. VOCATION: retired - Pain Left Hip Pain Intensity (Out of 10): 3 Pain Intensity Range: 10 - Objective POSTURE: mild forward posture hips/knees slightly flexed. GAIT: ambulated with mild forward posture. PALAPTIONL tender IT band ,greater trochanter. NEURO: denies paresthesia/tangling ,reflexes L3-4,L4-5,L5-S1 1/3. SYMMTRIES: align. FLEXABLITY : hamstrings MOD tight. LUMBAR ROM: flexion mod loss ,extension mod loss ,side glides mod loss. MMT: quads/hams 4/5 ,hip flexion 4-/5 ,ankle 4/5 - Special Tests Lumbar Standing: Flexion - Mechanical Response: No effect Lumbar Standing: Flexion - Symptoms During Testing: Increases Lumbar Standing: Flexion - Symptoms After Testing: No worse Lumbar Standing: Extension - Mechanical Response: No effect Lumbar Standing: Extension - Symptoms During Testing: Increases Lumbar Standing: Extension - Symptoms After Testing: No worse Lumbar Standing: Right Side Glides - Mechanical Response: No effect Lumbar Standing: Right Side [place] - Symptoms During Testing: No effect Lumbar Standing: Right Side [place] - Symptoms After Testing: No effect Lumbar Standing: Left Side [place] - Mechanical Response: No effect Lumbar Standing: Left Side [place] - Symptoms During Testing: No effect Lumbar Standing: Left Side [place] - Symptoms After Testing: No effect Lumbar Lying: Flexion - Mechanical Response: No effect Lumbar Lying: Flexion - Symptoms During Testing: Decreases Lumbar Lying: Flexion - Symptoms After Testing: No better R Hip Scour: Negative R Hip Trendelenberg - Glut Medius: Negative R Hip Alfa - IT Band: Negative L Hip Scour: Negative L Hip NIKOLAS - Intraarticular Pathology: Negative L Hip Trendelenberg - Glut Medius: Negative L Hip Alfa - IT Band: Negative - Balance/Special Test Scores Oswestry Low Back Score: 22 - Goals Goal 1:: I with HEP Goal Time Frame: 4-6 Weeks Goal 2:: Patient to improve lumbar ROM for function of recovery to work in yard Goal Time Frame: 4-6 Weeks Goal 3:: Patient to improve hip strength to 4/5 to improve function Goal Time Frame: 4-6 Weeks Goal 4:: Patient to demonstrate 50% improvement with less pain and improved function Goal Time Frame: 4-6 Weeks Goal 5:: Patient to improve back oswestry score by 5 points to improve QOL. Goal Time Frame: 4-6 Weeks - Rehabilitation Potential Physical Therapy Diagnosis: This patient has low back pain along with hip bursitis and IT band syndrome with pain with position ,weakness hip ,decrease lumbar ROM , motion testing lumbar thus benefit from skilled PT Rehabilitation Potential: Good - Anticipated Interventions Patient/Client Instruction: Educate patient on: Condition, Plan of Care For the Purpose of:: To decrease pain, To increase ROM, To improve muscle performance and motor function, To improve ability to perform ADL's, To increase tolerance to activity/condition/position, To improve performance and independence with ADL's, To improve ability of physical actions for home/community/work/leisure, To improve health of tissue, To decrease soft tissue restriction, To increase flexibility/ROM Therapeutic Exercise to Include: Strength training, Body mechanics, Postural training, Flexibilty training, Dynamic Lumbar Stabilization Comment: HIPS For the Purpose of:: To decrease pain, To increase ROM, To improve muscle performance and motor function, To improve ability to perform ADL's, To increase tolerance to activity/condition/position, To improve ability of physical actions for home/community/work/leisure, To improve health of tissue, To decrease soft tissue restriction, To increase flexibility/ROM Manual Therapy Techniques to Include: Soft tissue mobilization Comment: STICK I T BAND For the Purpose of:: To decrease pain, To increase ROM, To improve nutrient delivery to tissue, To increase oxygenation perfusion, To improve health of tissue, To decrease soft tissue restriction TENS: Yes IF ES: Yes Cryotherapy (ice pack, ice massage): Yes Thermo therapy (hot pack): Yes Ultrasound (thermal/non thermal): Yes For the Purpose of:: To decrease pain, To increase ROM, To improve nutrient delivery to tissue, To increase oxygenation perfusion, To improve health of tissue, To decrease soft tissue restriction Thank you for the opportunity to evaluate your patient. For Medicare and Medicare HMO plans, please review the plan of care and approve it. It will need to be FAXED BACK to us at [phone] for Medicare purposes. For Medicare only, by signing this I certify the plan of care. Please let me know if there are questions or concerns regarding this plan of care. Physician Signature: Date:
--- NOTE | 2022-10-26 10:30 | HP.PTDCSUM_ITS ---
Discharge Summary D/C summary: It has been my pleasure to treat TANVI ESCOTO referred by Dr. Arlet Ricketts MD, with the diagnosis of HIP BURSITIS ,LBP for a total of 9 visit(s). Discharge Date: 10/26/22 Please see the following information for a summary of their discharge status. Subjective Subjective: Doing better overall Pain Left Hip: Pain Intensity (Out of 10): 0 Overall Improvement % Improvement: 90 Objective Objective/Function: POSTURE: mild forward posture hi. GAIT: ambulated with mild forward posture. PALAPTIONL tender IT band ,greater trochanter. SYMMTRIES: align. FLEXABLITY : hamstrings MOD tight. LUMBAR ROM: flexion mId loss ,extension mIN loss ,side glides mod loss. MMT: quads/hams 4/5 ,hip flexion 4- /5 ,ankle 4/5 Goals Goal 1:: I with HEP Goal Progress: Goal Met Goal 2:: Patient to improve lumbar ROM for function of recovery to work in yard Goal Progress: Goal Met Goal 3:: Patient to improve hip strength to 4/5 to improve function Goal 4:: Patient to demonstrate 50% improvement with less pain and improved function Goal Progress: Goal Met Goal 5:: Patient to improve back oswestry score by 5 points to improve QOL. Goal Progress: Goal Met Plan Plan: D/C TO HEP D/C Information Discharge Comments: HEP d/c sentence: If there are questions or concerns regarding this patient's physical therapy, please feel free to call me at [phone]. Thank you for the referral of this patient. Sincerely, Ankur Avery, PT, Cert MDT, OCS Balance/Gait/Functional tests Balance/Special Test Scores Oswestry Low Back Score: 10
== END 2022-10-26 13:15 | disposition home or self-care (01) ==
LOC: PT 10:00
PROVIDERS: PCP Internal Medicine; Referring Provider Internal Medicine; Visit Provider Internal Medicine
DX: M70.72 Other bursitis of hip, left hip (principal); M54.50 Low back pain, unspecified
CPT/HCPCS: 97110; 97162; 97530

== ENCOUNTER → 2023-05-07 | Outpatient (CLI) | payer MEDICARE, OTHER, SELFPAY ==
--- NOTE | 2023-05-07 12:50 | CDU_ITS ---
Reason For Study: Bilateral Carotid Stenosis Rt. Velocities/BP Lt. Velocities/BP Prox CCA 84/13 cm/sec. Prox CCA 94/14 cm/sec. Mid CCA 64/13 cm/sec. Mid CCA 73/14 cm/sec. Dist CCA 59/14 cm/sec. Dist CCA 56/10 cm/sec. Prox ICA 45/12 cm/sec. Prox ICA 68/13 cm/sec. Mid ICA 63/15 cm/sec. Mid ICA 63/19 cm/sec. Dist ICA 77/17 cm/sec. Dist ICA 79/22 cm/sec. Rt. ICA/CCA = 1.2. Lt. ICA/CCA = 1.1. Prox ECA 78/7 cm/sec. Prox ECA 75/5 cm/sec. Rt. Vert. 39/8 cm/sec. Lt. Vert. 48/11 cm/sec. Right Extracranial There is heterogeneous, irregular atherosclerotic plaque noted in the right common carotid artery. There is heterogeneous, irregular atherosclerotic plaque noted in the right internal carotid artery. There is heterogeneous, irregular atherosclerotic plaque noted in the right external carotid artery. Antegrade flow is noted in the right vertebral artery. Left Extracranial There is heterogeneous, irregular atherosclerotic plaque noted in the left common carotid artery. There is heterogeneous, smooth atherosclerotic plaque noted in the left internal carotid artery. There is heterogeneous, smooth atherosclerotic plaque noted in the left external carotid artery. Antegrade flow is noted in the left vertebral artery. Procedure Carotid Duplex 63760. This is a Carotid Duplex examination using B-mode, color flow and specral Doppler. Exam performed in department. VL/Carotid Duplex Ultrasound Interpretation Summary Mild (<50%) stenosis right extracranial internal carotid. Mild (<50%) stenosis left extracranial internal carotid. Patent and antegrade vertebrals bilaterally. Ordering Physician: Arlet Ricketts Referring Physician: Arlet Ricketts Performed By: Rimma Joiner, RDCS, RVT
--- NOTE | 2023-05-07 13:58 | US_ITS ---
STUDY: ULTRASOUND BREAST - BILATERAL REASON FOR EXAM: Female, 78 years old. Palpable lump in the right breast. Left breast nodule. TECHNIQUE: Axial and longitudinal images of the BILATERAL breast were performed with a high resolution ultrasound transducer. # OF IMAGES: 80 COMPARISON: Comparison is made with prior mammogram done earlier in the day as well as prior sonogram of the right breast dated September 21, 2019. FINDINGS: BILATERAL Breast: The upper aspect of the right breast was examined with ultrasound. The palpable lump corresponds to a 1.9 cm x 1.9 cm x 0.6 cm slightly hyperechoic well-defined nodule at the 12:00 position of the breast is 7 cm from nipple. This most likely represents a lipoma. The central lateral inferior aspect of the left breast was examined with ultrasound. There is a 1.2 cm x 1.3 cm x 0.7 cm irregular hypoechoic nodule at the 2:00 position of the breast at 3 cm from nipple. Increased vascularity is seen. Biopsy recommended. Retroareolar ductal dilatation. US/Breast Limited Unilateral IMPRESSION: 1.2 cm x 1.3 cm x 0.7 cm hypoechoic irregular spiculated nodule at the 2:00 position of the breast at 3 cm from the nipple. Biopsy recommended. ASSESSMENT CATEGORY: BIRADS Category 4: Suspicious - Biopsy Should Be Considered. A letter regarding these results will be sent to the patient by the facility within 30 days. Electronically Signed: Shar Whitley MD at 8:42 EST ,
--- NOTE | 2023-05-07 13:58 | BI_ITS ---
MAMMOGRAPHY - BILATERAL DIAGNOSTIC REASON FOR EXAM: Female, 78 years old. Two-week history of right breast lump. PERTINENT HISTORY: Sisters with breast cancer. Mother with breast cancer. TECHNIQUE: Digital bilateral breast howard (3D mammographic acquisition) in the CC and MLO projections. 2-D mediolateral oblique (MLO) and craniocaudad (CC) views of both breasts were obtained. CAD: Full Field Digital Mammography with Computer Added Detection was performed. COMPARISON: Comparison is made with prior study dated April 09, 2022 and March 27, 2021. FINDINGS: Breast Composition: There are scattered areas of fibroglandular density. A tissue clip marker tablets again seen in the 3 mm nodule in the deep central portion of the right breast. A tissue clip marker is also seen in the inferior slightly lateral aspect of the right breast. There is a 5.4 mm x 4.3 mm well-defined nodule in the central lateral aspect of the left breast. Correlation with ultrasound is recommended. No other significant abnormalities are identified. BI/DIAG MAMM W/CAD, BILAT IMPRESSION: 5.4 mm x 4.3 mm well-defined nodule in the central lateral aspect of the left breast. Correlation with ultrasound is recommended. Targeted ultrasound examination of the palpable lump in the right breast is also recommended. ASSESSMENT CATEGORY: BIRADS Category 0: Incomplete. Need additional imaging evaluation. A letter regarding these results will be sent to the patient by the facility within 30 days. Approximately 10% of breast cancers are not detected by mammography. A normal mammogram should not delay biopsy of a clinically suspicious abnormality. Electronically Signed: Shar Whitley MD at 14:53 EST ,
== END | disposition home or self-care (01) ==
PROVIDERS: PCP Internal Medicine; Referring Provider Internal Medicine; Visit Provider Internal Medicine
DX: N63.0 Unspecified lump in unspecified breast (principal); I65.23 Occlusion and stenosis of bilateral carotid arteries; R92.8 Other abnormal and inconclusive findings on diagnostic imaging of breast
CPT/HCPCS: 76642; 77062; 77066; 93880; G0279

== ENCOUNTER → 2023-05-17 | Outpatient (CLI) | payer MEDICARE, OTHER, SELFPAY ==
--- NOTE | 2023-05-17 12:05 | US_ITS ---
ULTRASOUND GUIDED CORE BIOPSY REASON FOR EXAM: Female, 78 years old. Left breast mass PERTINENT HISTORY: Left breast mass. COMPARISON: Comparison is made with prior sonogram of the breasts dated May 07, 2023. TECHNIQUE: (All elements of maximal sterile barrier technique followed, including US elements as applicable) Under direct sonographic guidance, the surgeon performing core biopsies of the 1.2 cm x 1.2 cm x 0.7 cm irregular hypoechoic nodule at the 2:00 position the breast at 3 cm from the nipple. A tissue clip marker was placed at the biopsy site. US/US Breast Biopsy 1st Lesion IMPRESSION: Ultrasound guided core biopsy of a mass in the LEFT breast at the 2:00 position of the breast at 3 cm from the nipple without complication. Electronically Signed: Shar Whitley MD at 8:34 EST ,
--- NOTE | 2023-05-17 13:16 | BRBX_PTH ---
PATHOLOGY RESULTS PATIENT: TANVI ESCOTO LOC: OPUS U#:[id number] AGE/SX: 78/F ROOM: RE05/17/[address]: Dr. Lilliana Keating MD : 1945 BED: DIS: 05/17/2023 SPEC #: [id number] RECD: 05/17/23 13:52 STATUS: PENNY RENancy #: [id number] LUCRETIA: 05/17/23 13:[address]: Lilliana Keating DEPT: SURGICAL PATHOLOGY RECD BY: Cherry Valencia ENTERED: 05/17/23 13:53 SP TYPE: BREAST BX OTHR DR: Dr. Arlet Ricketts MD Tissues: Left breast, NOS Procedures: Surgery Specimen Level IV HEADER OPERATION: Ultrasound-guided left breast core biopsy PRE-OP DIAGNOSIS: Left breast mass TISSUE SUBMITTED: Left breast core 2 o'clock, 3.0 cm from nipple MICROSCOPIC DIAGNOSIS Left breast at 2 o'clock, core biopsy: Fibroadenoma. Minimal nonproliferative fibrocystic change. No evidence of malignancy. AM:kalani 05/18/2023 MICROSCOPIC DESCRIPTION Slides are reviewed. GROSS DESCRIPTION Received in fixative is one container labeled with the patient's name and designated left breast. The specimen consists of multiple elongated fragments of nelson-yellow fibroadipose tissue that in aggregate measure 1.0 x 0.5 x 0.1 cm. The entire specimen is submitted in one cassette. / SJ:kalani 05/17/2023 TC:5 Ischemic Time: <1 minute Fixation Time: 6.5 hours CPT: 43495
--- NOTE | 2023-05-17 13:28 | PCM.OPRPT ---
Report of Operation Date of Procedure: 05/17/23 Pre-Operative Diagnosis: Left breast mass Post-Operative Diagnosis: Same Surgery/Procedure Performed:: Ultrasound-guided left breast biopsy Surgeon: Lilliana Keating Type of Anesthesia: Local Anesthesiologist: Lilliana Keating Specimen's removed: 1. Left breast mass 2:00 3 cm from the nipple Estimated Blood Loss (mL): minimal Description of Procedure: Procedure: Left ultrasound-guided core biopsy Indications: 78year-old female with hypoechoic nodule at 2:00 in the left breast 3 centimeters from the nipple. Risk benefits were discussed the patient and she elected to proceed with ultrasound guided core biopsy with clip placement Description of procedure: Patient was brought into the ultrasound room in the left breast was marked. A timeout was completed verifying correct patient, procedure, site, specially, prior to beginning procedure. The left breast was prepped and draped in usual sterile fashion and using local anesthesia was obtained with 1% lidocaine with epi. The lesion was located with the ultrasound. Small incision was made with 11 blade to introduced the BARD MaxCore through the skin. Under ultrasound guidance multiple core samples were obtained using then 14-gauge BARD MaxCore and sent in formalin for pathology. The Bard dual ultra ribbon clip was then deployed into the biopsy cavity under ultrasound guidance and a picture was taken. Upon completion procedure hemostasis was obtained and a Steri-Strip and OpSite were placed. Patient was then taken to the mammography suite for clip verification. The clip was verified. The patient tolerated the procedure well and was discharged from the breast imaging department good condition. complications: none Complications none
== END | disposition home or self-care (01) ==
LOC: OPUS 12:05
PROVIDERS: PCP Internal Medicine; Referring Provider Surgery; Visit Provider Surgery
DX: N63.22 Unspecified lump in the left breast, upper inner quadrant (principal)
CPT/HCPCS: 19083; 88305

== ENCOUNTER 2023-05-27 13:30 | Outpatient (RCR) | payer MEDICARE, OTHER, SELFPAY ==
--- NOTE | 2023-05-11 10:35 | HP.OTEVAL ---
Patient's Visit Information Visit Information Visit Information: TANVI ESCOTO is a 78 year old F, referred to Occupational Therapy by Dr. Arlet Ricketts MD, with a diagnosis of OA bilateral hand / tremor. Date of Evaluation: 05/06/23 Occupational Therapist: ALL De Los Santos/Rui, CHT Subjective Subjective: This 78 year old female was seen for OT eval with dx of OA hand and tremors. Pt states both hands are painful around her thumbs and wrist. Pt states left is more painful than right- States essential tremor started about a year or more ago. pt states she has trouble with being able to have strength and coordination to use fork and spoon without making a mess. pt states tremors are not a big problem. ADLs Comments: pt states with cooking she does get increase tremor pt states her arm was shaking when she woke up pt states she has more concerns with eating and not being able to use her silverware without making a mess. Pain right hand: Current Pain Intensity: 0 Pain Intensity Range: 0 and 4 left hand: Current Pain Intensity: 0 Pain Intensity Range: 0 and 5 ROM Wrist: right 65/65 left 40/70 CMC: right 25 left 35 MP: right 50 left 45 IP: right 30 left 25 Radial Abduction: right 45 left 35 ROM Comments: pt demo with multiple right and left digit OA deformities limiting pts ability to form tight composite fist on bilateral hands. Strength Online User Experience Strategist: right 25# left 24# Lateral Pinch: right 4# left 4# Tripod Pinch: NT Strength Comments: pt demo with bilateral thumb instability. Sensation Sensation Comments: denies Quick DASH-Disab of Arm,Shoulder& Hand Quick DASH Score: 45.0000 Goals Goal:: pt will report no pain greater than 2/10 with use of bilateral hands when performing ADls and IADLs by d.c. Goal:: Pt will demo understanding of joint protection and ergonomics when performing BADLs and IADLs by d/c Pt will demo understanding of adaptive Equipment use to decrease stress on joints to allow pt to perform BADSL and IADLS at ZHANG level. Goal:: Pt will demo understanding of using supportive bracing 80% of workday/ADLS to decrease stress on tendon origin to allow healing and decrease pain by end of 2nd session. Rehabilitation General Assessment: pt demo with bilateral OA deformities in digits and thumbs- this is limiting pts strength and full composite fist ROM limiting pts ind.with eating, cooking and other daily tasks. Pt would benefit from skilled OT services 1-2x week for 4 weeks to decrease pain, ed. pt on joint protection mario. and adaptive eq. to increase pts ind with ADLs and IADls. Today therapist ed. 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 eq. to decrease stress on joint of bilateral hands when performing ADls and IADLs. pt demo understanding and agree to POC. Rehabilitation Potential: Fair Anticipated Interventions Anticipated Interventions: Triggerpoint Release, Modalities, Orthoses, Joint Protection/Energy Conservation, Ergonomic Education and Home Program Visit Plan Frequency: 1-2x /Week Duration: 4 Weeks General Plan: problem solve pts limitations and make red'd on appropriate ad. eq. TEXT: Thank you for the opportunity to evaluate your patient. For Medicare and Medicare HMO plans, please review the plan of care and approve it. It will need to be FAXED BACK to us at [phone] for Medicare purposes. Please let me know if there are questions or concerns regarding this plan of care. Physician Signature: Date:
== END 2023-05-27 19:00 | disposition home or self-care (01) ==
LOC: OT 13:30
PROVIDERS: PCP Internal Medicine; Visit Provider Internal Medicine
DX: M54.50 Low back pain, unspecified (principal); M70.70 Other bursitis of hip, unspecified hip
CPT/HCPCS: 97110; 97166; 97530

== ENCOUNTER → 2023-11-04 | Outpatient (CLI) | payer MEDICARE, OTHER, SELFPAY ==
[2023-11-04 15:25] LABS: Hematocrit 39.3 % (37-47); Hemoglobin 12.8 g/dL (12.0-15.0); Mean Corp Hgb Conc 32.6 g/dL (32-36); Mean Corpuscular Hgb 28.4 pg (27.0-32.0); Mean Corpuscular Volume 87.3 fL (81-99); Mean Platelet Vol. 9.9 fl (6.2-12.0); Platelet Count 294 K/mm3 (150-450); RBC Distribution Width CV 13.8 % (11.6-14.6); White Blood Count 8.7 K/mm3 (4.4-11.0)
[2023-11-04 15:40] LABS: Vitamin B12 1056 pg/mL (211-911)
[2023-11-04 16:35] LABS: ALB/GLOB Ratio 1.1 RATIO (0.9-2.4); AST(SGOT) 26 U/L (15-37); Alanine Aminotransfer ALT/SGPT 9 U/L (13-56); Albumin, Serum 3.6 g/dL (3.2-5.0); Alkaline Phosphatase 50 U/L (45-117); Anion Gap 5 (5-15); BUN 29 mg/dL (7-18); BUN/Creat Ratio 26.4 RATIO (10-20); Calcium,Total 9.5 mg/dL (8.5-10.1); Chloride 108 mmol/L (98-107); EST Glomerular Filtration Rate 51 mL/min (>60); Est Glom Filt Rate - Afr Amer 62 mL/min (>60); Globulin 3.2 g/dL (2.2-4.2); Glucose 135 mg/dL (74-106); Protein, Total 6.8 g/dL (6.4-8.2); Sodium Level 139 mmol/L (136-145); Thyroid Stim Hormone (TSH) 1.36 uIU/mL (0.358-3.74)
[2023-11-09 20:07] LABS: Free Kappa Light Chains 19.1 mg/L (3.3-19.4); Free Lambda Light Chains 15.7 mg/L (5.7-26.3); Vitamin B1, Thiamine 278.2 nmol/L (66.5-200.0)
== END | disposition home or self-care (01) ==
PROVIDERS: PCP Internal Medicine; Referring Provider Psychiatry & Neurology Neurology; Visit Provider Psychiatry & Neurology Neurology
DX: G57.90 Unspecified mononeuropathy of unspecified lower limb (principal); E78.5 Hyperlipidemia, unspecified; I10 Essential (primary) hypertension
CPT/HCPCS: 36415; 80053; 82607; 82746; 83883; 84425; 84443; 85027

== ENCOUNTER → 2023-11-11 | Outpatient (CLI) | payer MEDICARE, OTHER, SELFPAY ==
--- NOTE | 2023-11-11 06:37 | MRI_ITS ---
STUDY: MRI CERVICAL SPINE WITHOUT CONTRAST REASON FOR EXAM: Female, 78 years old. Gait disorder; neck pain; Hx ACDF TECHNIQUE: Standardized fat and water weighted pulse sequences were obtained in the sagittal and axial planes. COMPARISON: 12/04/2014 FINDINGS: Normal foramen magnum and brainstem-cervical cord junction. Normal craniovertebral junction. Normal anterior atlantoaxial articulation. Normal odontoid process. Normal cervical lordosis. Normal vertebral bodies and posterior osseous elements. C2-3: Normal endplates. Normal disc height, signal and morphology. Normal central canal and intervertebral neural foramina. C3-4: Mild left facet hypertrophy produces mild left neural foraminal stenosis. No central spinal stenosis. C4-5: Normal endplates. Normal disc height, signal and morphology. Normal central canal and intervertebral neural foramina. C5-6: Interval anterior cervical discectomy and fusion with anatomic alignment with a large right paracentral osteophyte which produces moderate spinal stenosis with effacement of the right hemicord. CT would be useful for further evaluation. C6-7: Interval anterior cervical discectomy and fusion with anatomic alignment with no spinal stenosis or neural foraminal stenosis. C7-T1: Normal endplates. Normal disc height, signal and morphology. Normal central canal and intervertebral neural foramina. Normal cervical cord. Normal visualized soft tissue structures. MRI/Spine Cervical (Routine) IMPRESSION: Interval anterior cervical discectomy and fusion from C5 through C7 with a suspected large right paracentral osteophyte at C5/C6 producing moderate spinal stenosis with effacement of the right hemicord. CT may be useful for further evaluation. Electronically Signed: Vance Quinn MD at 10:12 EDT ,
--- NOTE | 2023-11-11 06:37 | MRI_ITS ---
STUDY: MRI LUMBAR SPINE WITHOUT CONTRAST REASON FOR EXAM: Female, 78 years old. Low back pain; right foot drop TECHNIQUE: Standardized fat and water weighted pulse sequences were obtained in the sagittal and axial planes. COMPARISON: 12/04/2014 FINDINGS: T12-L1: Normal endplates. Normal disc height, hydration and morphology. Normal bilateral facet joints. Normal central canal and bilateral lateral recesses. Normal bilateral intervertebral neural foramina. Normal lumbar lordosis. Mild dextroscoliosis of the thoracic lumbar spine. Normal conus medullaris that terminates at the L1. L1-2: Disc desiccation but no disc protrusion, spinal stenosis, or neural foraminal stenosis. L2-3: Normal endplates. Normal disc height, hydration and morphology. Normal bilateral facet joints. Normal central canal and bilateral lateral recesses. Normal bilateral intervertebral neural foramina. L3-4: Severe bilateral facet hypertrophy and ligament flavum hypertrophy. Interval development of 2 mm of anterolisthesis of L3 on L4 with a moderate broad disc protrusion produces severe spinal stenosis with moderate bilateral lateral recess stenosis with abutment of the L4 nerve roots bilaterally and moderate bilateral neural foraminal stenosis with abutment of the exiting L3 nerve roots bilaterally. L4-5: Moderate bilateral facet hypertrophy and ligament flavum hypertrophy. No change in the moderate broad disc protrusion asymmetric to the left which reduces moderate spinal stenosis and moderate bilateral lateral recess stenosis with abutment of the L5 nerve roots bilaterally and mild bilateral neural foraminal stenosis. L5-S1: Mild bilateral facet hypertrophy and ligamentum flavum hypertrophy. No change in the mild broad disc protrusion which produces mild spinal stenosis and mild bilateral neural foraminal stenosis. Normal visualized sacral ala. Mild friction related edema in the posterior subcutaneous fat. MRI/Spine Lumbar (Routine) IMPRESSION: Worsening degenerative disc disease at L3/L4 as described above. Electronically Signed: Vance Quinn MD at 10:39 EDT ,
== END | disposition home or self-care (01) ==
LOC: MRI 06:27
PROVIDERS: PCP Internal Medicine; Referring Provider Psychiatry & Neurology Neurology; Visit Provider Psychiatry & Neurology Neurology
DX: M54.50 Low back pain, unspecified (principal); G95.9 Disease of spinal cord, unspecified; R26.9 Unspecified abnormalities of gait and mobility; M21.371 Foot drop, right foot; M54.2 Cervicalgia
CPT/HCPCS: 72141; 72148

== ENCOUNTER 2023-11-13 18:17 | Emergency (ER) | payer MEDICARE, OTHER, SELFPAY ==
[2023-11-13 18:18] VITALS: BP 145/67; PULSE 60; RESP 18; TEMP 36.4; O2SAT 99; BMI 32.1
--- NOTE | 2023-11-13 18:29 | EDS_ITS ---
<Statement entered by Ann Marie Araya MD - 11/13/23 21:11> I have personally performed a face to face assessment of the patient and have reviewed the CELIA Note. Patient presents secondary to left hip pain. She had a mechanical fall yesterday at physical therapy landing on her left side. She is a skin tear to her extensor left elbow and pain to her left hip. She has been ambulating with a walker. She is currently in physical therapy because of a recent diagnosis of Parkinson's. Patient sitting upright in bed no acute distress. She is alert and talkative. Left upper extremity examination reveals a skin tear to the extensor portion of the left elbow. Full range of motion of the joint without difficulty. Patient has mild tenderness of the right anterior hip. Equal leg lengths noted. Left hip and pelvis x-rays are obtained. I do feel patient has a nondisplaced superior ramus fracture on the left. Radiology report reads no evidence of fracture. Our concerns were discussed with the patient. She is he can continue weightbearing with her walker. She is referred to orthopedics for follow-up and will also follow-up with her primary care physician. Return instructions given. HPI HPI - Fall History of Present Illness Chief Complaint: Fall Narrative Narrative: 78-year-old female started physical therapy yesterday for recent diagnosis of Parkinson's and states the rubber tip of her shoe caught on the carpet and she fell onto her left elbow and hip. It also knocked her glasses off but she did not have a significant head injury. She was able to get up and walk and was managing the left hip pain with ibuprofen but it worsened throughout the day so she decided to come in for evaluation. She has a small skin tear on the elbow and bruising but no pain in the upper extremity. She has no pain in her back. No pain radiating down the leg, no weakness or numbness or tingling. She is not on blood thinners. [facility] Medical History Abnormal Heart Score CT Abnormal mammogram of right breast Acquired esophageal ring Age-related cognitive decline Atherosclerotic heart disease of [place] coronary artery without angina pectoris Cardiac murmur Change in stool Chronic constipation Essential hypertension Gastroesophageal reflux disease GERD (gastroesophageal reflux disease) History of benign breast biopsy Hyperlipidemia Obesity Osteoarthritis Other cervical disc degeneration, unspecified cervical region Positive YUDELKA (antinuclear antibody) Tremor Type 2 diabetes mellitus Vitamin D deficiency Home Medications ?Medication ?Instructions ?Recorded ?Last Taken ?Type aspirin 81 mg tablet,delayed 81 mg PO DAILY 04/07/18 07/22/18 History release (Adult Aspirin Regimen) fenofibrate 160 mg tablet 160 mg PO DAILY 04/07/18 Unknown History losartan 25 mg tablet 25 mg PO QHS 04/07/18 Unknown History omeprazole 40 mg capsule,delayed 40 mg PO DAILY reflux 04/07/18 09/19/19 History release rosuvastatin 20 mg tablet (Crestor) 20 mg PO QHS cholesterol 04/07/18 Unknown History calcium carbonate-vitamin D3 600 2 tab PO DAILY 07/12/18 Unknown History mg-125 unit tablet (Calcium) arginine HCl (L-arginine) 1,000 mg 1,000 mg PO DAILY 01/26/19 Unknown History tablet omega-3 fatty acids-fish oil 360 1 cap PO DAILY 01/26/19 09/10/19 History mg-1,200 mg capsule (Fish Oil) meloxicam 7.5 mg tablet 7.5 mg PO PRN PRN Pain Or Fever 09/13/19 Unknown History arginine HCl (L-arginine) 1,000 mg mg PO 05/12/23 Unknown History tablet biotin 10,000 mcg chewable tablet mcg PO 05/12/23 Unknown History folic acid 1 mg tablet 2 mg PO DAILY 05/12/23 Unknown History turmeric root extract 500 mg 500 mg PO DAILY 05/12/23 Unknown History capsule vitamin B complex (B 1 tab PO DAILY 05/12/23 Unknown History Complex-Vitamin B12 tablet) amlodipine 5 mg tablet 5 mg PO DAILY 10/26/23 Unknown History carbidopa 25 mg-levodopa 100 mg 1 tab PO .COMPLEX #90 tabs 10/26/23 Unknown Rx tablet cholecalciferol (vitamin D3) 25 25 mcg PO DAILY 10/26/23 Unknown History mcg (1,000 unit) capsule polyethylene glycol 3350 17 4 g PO DAILY 10/26/23 Unknown History gram/dose oral powder (Miralax) hydrocodone-acetaminophen 5-325mg 1 tab PO Q6H PRN pain 5 days #20 11/13/23 U nknown Rx 5mg-325mg tabs ondansetron 4 mg disintegrating 4 mg PO Q6H PRN nausea and 11/13/23 Unknown Rx tablet vomiting #20 tabs Allergy/AdvReac Type Severity Reaction Status Date / Time levofloxacin (From Levaquin) Allergy Severe dark Verified 11/13/23 18:18 urine, fever, sore throat amlodipine (From Lotrel) Allergy Intermediate sleepy-couldn't Verified 11/13/23 18:18 function benazepril (From Lotrel) Allergy Intermediate sleepy-couldn't Verified 11/13/23 18:18 function clarithromycin (From Biaxin) Allergy Intermediate Upset Verified 11/13/23 18:18 Stomach amoxicillin Allergy Mild rash Verified 11/13/23 18:18 codeine AdvReac Mild GI upset Verified 11/13/23 18:18 lisinopril AdvReac Mild sleepy Verified 11/13/23 18:18 Family History Mother Breast cancer Sister Breast cancer Sister Breast cancer Diabetes Hypertension Father Heart disease Cancer skin cancer Brother Cancer Heart disease Surgical History History of arthroscopy of left knee History of cholecystectomy History of colonoscopy (2007) History of left heart catheterization (07/22/18) History of neck surgery History of wisdom tooth extraction Social History Smoking Status: Never smoker alcohol intake: never substance use type: does not use caffeine: Yes ROS ROS ED ROS Narrative Neuro: Negative for headache, motor/sensory dysfunction. Skin: Positive for skin tear. Musc: Positive for left hip pain, trauma. EXAM Physical Exam Narrative Exam Narrative: CONST: Patient sitting in no acute distress. EYES: Normal inspection. NECK: Normal inspection. RESP: No respiratory distress, CTAB. CVS: Regular rate and rhythm, no murmur, no gallop. ABD: Soft and nontender, no guarding or rebound, nondistended. Back: Normal inspection, no midline tenderness. SKIN: 2 cm skin tear left elbow with surrounding ecchymosis. EXTREMITIES: Normal appearance of upper extremities, full range of motion, no tenderness, 2+ radial pulses. Pelvis stable, no shortening or rotation, tender over left hip and mild pain with logroll. No tenderness of the distal femur and knee lower leg or foot. 2+ DP pulses. NEURO: Alert and answering questions appropriately. PSYCH: Normal affect. Const Vital Signs: 11/13/23 18:18 07/20/24 18:44 Temperature 97.6 F L Temperature Source Temporal Pulse Rate 60 Respiratory Rate 18 Respiratory Effort Normal Non-Labored Respiratory Depth Normal Respiratory Pattern Normal Blood Pressure 145/67 H Blood Pressure Mean 93 Pulse Ox 99 Oxygen Delivery Method Room Air Room Air MDM MDM MDM Narrative Medical decision making narrative: Differential: Contusion, hip or pelvic fracture Patient had a mechanical fall yesterday onto her left hip and presents with pain with ambulation. She appears well and nontoxic. Vital signs stable. She has left elbow and forearm ecchymosis and a small skin tear but no bony tenderness so I do not think arm x-rays are indicated. Her pelvis is stable with mild left pelvic tenderness and slight pain with logroll. There is no shortening or rotation and she is neurovascular intact. The radiologist read the x-ray as negative but on my interpretation I think there is a left-sided pelvic fracture without significant displacement. Patient has been able to ambulate and feels better after Conway here. She has a walker to use as needed. She will continue ibuprofen per the instructions of her primary care and I prescribed Conway for breakthrough pain and provided an orthopedic referral. I discussed she should call her PCP to discuss altering her physical therapy which she just started for Parkinson's. Patient was agreeable with this plan and discharged in stable condition. Radiography Diagnostic Testing: Clinical Impression(s) from Imaging Studies Hip/Pelvis X-Ray 11/13/23 18:41 IMPRESSION: No acute radiographic abnormalities. Moderate degenerative changes of bilateral hips. Electronically Signed: Jaime Cazares MD at 19:56 EDT , Discharge Plan Triage Chief Complaint: Fall ED Midlevel Provider: Chen Martinez ED Provider: Ann Marie Araya Dx/Rx/DC Orders Clinical Impression: Closed fracture of left pelvis, Contusion of left elbow, Skin tear of left elbow without complication Instructions: ED Pelvic Fracture Prescriptions: New hydrocodone-acetaminophen 5-325 mg tablet 1 tab PO Q6H PRN (Reason: pain) 5 Days Qty: 20 0RF ondansetron 4 mg tablet,disintegrating 4 mg PO Q6H PRN (Reason: nausea and vomiting) Qty: 20 0RF No Action rosuvastatin [Crestor] 20 mg tablet 20 mg PO QHS fenofibrate 160 mg tablet 160 mg PO DAILY omeprazole 40 mg capsule,delayed release(DR/EC) 40 mg PO DAILY aspirin [Adult Aspirin Regimen] 81 mg tablet,delayed release (DR/EC) 81 mg PO DAILY Patient Comments: was not told to stop for EGD losartan 25 mg tablet 25 mg PO QHS Calcium 600 + D(3) 600-125 mg-unit tablet 2 tab PO DAILY arginine HCl (L-arginine) 1,000 mg tablet 1,000 mg PO DAILY omega-3 fatty acids-fish oil [Fish Oil] 360-1,200 mg capsule 1 cap PO DAILY Patient Comments: stopped for EGD amlodipine 5 mg tablet 5 mg PO DAILY polyethylene glycol 3350 [Miralax] 17 gram/dose powder 4 g PO DAILY cholecalciferol (vitamin D3) 25 mcg (1,000 unit) capsule 25 mcg PO DAILY carbidopa-levodopa 25-100 mg tablet 1 tab PO .COMPLEX Qty: 90 5RF Rx Instructions: 1 Tab PO daily for one week then 1 tab BID for one week then 1 tab TID thereafter vitamin B complex [B Complex-Vitamin B12] Tablet 1 tab PO DAILY folic acid 1 mg tablet 2 mg PO DAILY arginine HCl (L-arginine) 1,000 mg tablet PO turmeric root extract 500 mg capsule 500 mg PO DAILY biotin 10,000 mcg tablet,chewable PO meloxicam 7.5 MG tablet 7.5 mg PO PRN PRN (Reason: Pain Or Fever) Primary Care Provider: Arlet Ricketts Referrals: Arlet Ricketts MD [Primary Care Provider] - Rui Park MD [Med Staff - Active Staff] - Activity Restrictions/Additional Instructions: The radiologist read your x-ray is normal but I think there is a left-sided fracture of the pelvis. This should heal on its own over the next 6 to 12 weeks without any surgery. You can continue the ibuprofen and use Conway for breakthrough pain. It can be painful to move for the next few weeks so you should talk to your primary care doctor and physical therapist about changing your physical therapy. Conway causes constipation so increase her MiraLAX use so that you have soft stools. Print Language: Polish Disposition Disposition: Home, Self Care
--- NOTE | 2023-11-13 18:41 | RAD_ITS ---
INDICATION: pain EXAMINATION/TECHNIQUE: X-RAY - LEFT XR Hip Unilateral with Pelvis when performed; 2-3 Views COMPARISON: None. FINDINGS: No acute fracture or malalignment. No blastic or lytic lesions. Moderate degenerative changes of bilateral hips. The soft tissues are unremarkable. RAD/HIP, UNI W/ Pelvis 2-3 Views IMPRESSION: No acute radiographic abnormalities. Moderate degenerative changes of bilateral hips. Electronically Signed: Jaime Cazares MD at 19:56 EDT ,
[2023-11-13] MEDS: HYDROcodone Bitartrate/Apap 5/325 Tablet PO (18:50)
[2023-11-13] MEDS: Ondansetron ODT 4 MG Tablet PO (18:52)
[2023-11-13 20:30] VITALS: BP 157/57; PULSE 61; RESP 16; TEMP 36.7; O2SAT 97
== END 2023-11-13 20:47 | disposition home or self-care (01) ==
PROVIDERS: Emergency Provider Emergency Medicine; PCP Internal Medicine; Visit Provider Emergency Medicine
DX: S32.512A Fracture of superior rim of left pubis, initial encounter for closed fracture (principal); G20.A1 Parkinson's disease without dyskinesia, without mention of fluctuations; E11.9 Type 2 diabetes mellitus without complications; S50.02XA Contusion of left elbow, initial encounter; E78.5 Hyperlipidemia, unspecified; I25.10 Atherosclerotic heart disease of native coronary artery without angina pectoris; I10 Essential (primary) hypertension; S51.012A Laceration without foreign body of left elbow, initial encounter; W01.10XA Fall on same level from slipping, tripping and stumbling with subsequent striking against unspecified object, initial encounter; Y92.89 Other specified places as the place of occurrence of the external cause; K21.9 Gastro-esophageal reflux disease without esophagitis; Z79.899 Other long term (current) drug therapy; Z79.82 Long term (current) use of aspirin; M19.90 Unspecified osteoarthritis, unspecified site; Z90.49 Acquired absence of other specified parts of digestive tract
CPT/HCPCS: 73502; 99283

== ENCOUNTER → 2023-11-19 | Outpatient (CLI) | payer MEDICARE, OTHER, SELFPAY ==
--- NOTE | 2023-11-19 11:30 | CT_ITS ---
STUDY: CT SCAN HIP LEFT REASON FOR EXAM: Female, 78 years old. pain in left hip RADIATION DOSAGE (If Supplied By Facility): CTDIvol = ( 17.79 ) mGy, DLP = ( 450.48 ) mGycm. Individualized dose optimization techniques were used for this CT.? TECHNIQUE: Multiple axial tomographic images of the left hip were obtained without intravenous contrast administration. Coronal and sagittal reconstruction was obtained as well. COMPARISON: None. FINDINGS: There is a 4.9 cm by 4.9 cm x 7.2 cm fat-containing mass with a lipoma in the lateral muscle group overlying the left hip joint. Mild degree of the joint space narrowing of the left hip joint. No fracture or dislocation is seen. There is evidence of a nondisplaced fracture involving the left inferior pubic ramus. There is also evidence of a nondisplaced fracture along the medial aspect of the left superior pubic ramus. Soft tissue swelling. Limited visualization of the pelvis demonstrates sigmoid diverticulosis with no radiographic evidence of diverticulitis. CT/Extremity Lower without Contra IMPRESSION: Nondisplaced fractures of the left superior and inferior pubic rami. Mild degenerative changes of the left hip joint. 4.9 cm x 4.9 cm x 7.2 cm fat-containing mass overlying the left hip joint laterally as described suggestive of a lipoma. Soft tissue swelling. Electronically Signed: Shar Whitley MD at 12:41 EDT ,
== END | disposition home or self-care (01) ==
LOC: CT 11:30
PROVIDERS: PCP Internal Medicine; Referring Provider Internal Medicine; Visit Provider Internal Medicine
DX: M25.552 Pain in left hip (principal)
CPT/HCPCS: 73700

== ENCOUNTER 2024-01-25 14:14 | Emergency (ER) | payer MEDICARE, OTHER, SELFPAY ==
[2024-01-25 14:16] VITALS: BP 154/112; PULSE 89; RESP 18; TEMP 37.8; O2SAT 97; BMI 30.7
--- NOTE | 2024-01-25 14:53 | EX.ED.DYSGE1 ---
HPI History of Present Illness Chief Complaint: General Illness Informant: patient Onset/Context/Timing Onset: Days Context: Gradual Onset Timing: Continuous Quality: Pressure Location: Maxillary sinuses Worsened by: Nothing Relieved by: Nothing Narrative Narrative: Patient presents with cough, congestion, fever, and sinus headache that has been getting worse over the past couple days. Patient states it became worse today. Patient also admits to a sore throat. Patient states nothing makes her symptoms better and nothing makes them worse. Patient admits to subjective fevers at home. Patient admits to a cough but denies any sputum production. Patient admits to some nausea but denies any vomiting. [facility] Medical History (Updated 01/25/24 @ 16:[address] Tao Moseley, DO) Parkinson's disease Vitamin D deficiency Acquired esophageal ring Chronic constipation Other cervical disc degeneration, unspecified cervical region Change in stool Tremor Age-related cognitive decline Positive YUDELKA (antinuclear antibody) Gastroesophageal reflux disease Atherosclerotic heart disease of [place] coronary artery without angina pectoris Type 2 diabetes mellitus Obesity Abnormal Heart Score CT Hyperlipidemia Essential hypertension Abnormal mammogram of right breast History of benign breast biopsy Cardiac murmur Osteoarthritis GERD (gastroesophageal reflux disease) Home Medications ?Medication ?Instructions ?Recorded ?Last Taken ?Type aspirin 81 mg tablet,delayed 81 mg PO DAILY 04/07/18 07/22/18 History release (Adult Aspirin Regimen) fenofibrate 160 mg tablet 160 mg PO DAILY 04/07/18 Unknown History losartan 25 mg tablet 25 mg PO QHS 04/07/18 Unknown History omeprazole 40 mg capsule,delayed 40 mg PO DAILY reflux 04/07/18 09/19/19 History release rosuvastatin 20 mg tablet (Crestor) 20 mg PO QHS cholesterol 04/07/18 Unknown History calcium carbonate-vitamin D3 600 2 tab PO DAILY 07/12/18 Unknown History mg-125 unit tablet (Calcium) arginine HCl (L-arginine) 1,000 mg 1,000 mg PO DAILY 01/26/19 Unknown History tablet omega-3 fatty acids-fish oil 360 1 cap PO DAILY 01/26/19 09/10/19 History mg-1,200 mg capsule (Fish Oil) meloxicam 7.5 mg tablet 7.5 mg PO PRN PRN Pain Or Fever 09/13/19 Unknown History arginine HCl (L-arginine) 1,000 mg mg PO 05/12/23 Unknown History tablet biotin 10,000 mcg chewable tablet mcg PO 05/12/23 Unknown History folic acid 1 mg tablet 2 mg PO DAILY 05/12/23 Unknown History turmeric root extract 500 mg 500 mg PO DAILY 05/12/23 Unknown History capsule vitamin B complex (B 1 tab PO DAILY 05/12/23 Unknown History Complex-Vitamin B12 tablet) amlodipine 5 mg tablet 5 mg PO DAILY 10/26/23 Unknown History carbidopa 25 mg-levodopa 100 mg 1 tab PO .COMPLEX #90 tabs 10/26/23 Unknown Rx tablet cholecalciferol (vitamin D3) 25 25 mcg PO DAILY 10/26/23 Unknown History mcg (1,000 unit) capsule polyethylene glycol 3350 17 4 g PO DAILY 10/26/23 Unknown History gram/dose oral powder (Miralax) hydrocodone-acetaminophen 5-325mg 1 tab PO Q6H PRN pain 5 days #20 11/13/23 Unknown Rx 5mg-325mg tabs ondansetron 4 mg disintegrating 4 mg PO Q6H PRN nausea and 11/13/23 Unknown Rx tablet vomiting #20 tabs Allergy/AdvReac Type Severity Reaction Status Date / Time levofloxacin (From Levaquin) Allergy Severe dark Verified 01/25/24 14:15 urine, fever, sore throat amlodipine (From Lotrel) Allergy Intermediate sleepy-couldn't Verified 01/25/24 14:15 function benazepril (From Lotrel) Allergy Intermediate sleepy-couldn't Verified 01/25/24 14:15 function clarithromycin (From Biaxin) Allergy Intermediate Upset Verified 01/25/24 14:15 Stomach amoxicillin Allergy Mild rash Verified 01/25/24 14:15 codeine AdvReac Mild GI upset Verified 01/25/24 14:15 lisinopril AdvReac Mild sleepy Verified 01/25/24 14:15 Family History Mother Breast cancer Sister Breast cancer Sister Breast cancer Diabetes Hypertension Father Heart disease Cancer skin cancer Brother Cancer Heart disease Surgical History History of arthroscopy of left knee History of left heart catheterization (07/22/18) History of wisdom tooth extraction History of colonoscopy (2007) History of neck surgery History of cholecystectomy Social History Smoking Status: Never smoker alcohol intake: never substance use type: does not use caffeine: Yes ROS ROS ED Constitutional Constitutional ED: Reports fever(s) and subjective; Denies chills Eyes Eyes: Denies blurry vision or change in vision ENT ENT ED: Reports rhinorrhea and sore throat Cardiovascular Cardiovascular: Denies chest pain or palpitations Respiratory/Chest Respiratory/Chest: Denies cough or dyspnea Gastrointestinal Gastrointestinal: Reports nausea; Denies vomiting Genitourinary Genitourinary ED: Denies dysuria or hematuria Musculoskeletal Musculoskeletal: Reports back pain and neck pain Integumentary Denies abscess or rash Neurologic Neurologic: Reports headache(s); Denies weakness Allergic/Immunologic Allergic/Immunologic ED: Denies mouth swelling or urticaria EXAM Physical Exam Const Vital Signs: 01/25/24 14:16 01/25/24 14:33 01/25/24 15:17 Temperature 100.1 F H 102.4 F H Temperature Source Oral Oral Pulse Rate 89 68 Respiratory Rate 18 18 Respiratory Effort Normal Non-Labored Respiratory Pattern Normal Blood Pressure 154/112 H 137/51 H Blood Pressure Mean 126 79 Pulse Ox 97 97 Oxygen Delivery Method Room Air Room Air Positive well nourished and well developed General Appearance ED: well developed and NAD HEENT Reports TM's clear and moist mucous membranes Tympanic Membrane ED: Yes TM's clear Eyes PERRL and EOMs intact bilaterally Neck supple and no JVD Resp normal respiratory effort and clear to auscultation bilaterally Cardio regular rate and regular rhythm GI non-tender and non-distended Palpation: soft Neuro oriented x3, CN's II-XII intact bilaterally and no sensory deficits noted Sensorium / Orientation: alert Motor Exam: strength 5/5 throughout Psych mental status grossly normal MDM MDM MDM Narrative Medical decision making narrative: Differential diagnosis includes pneumonia, urinary tract infection, and viral illness. Urinalysis will be obtained to assess for urinary tract infection and hematuria. Chest x-ray will be obtained to assess for pneumonia and bronchitis. COVID-19, influenza, and RSV PCR will be obtained to assess for viral illness. Lab Data Attestation: I reviewed the patient's lab results. Lab results narrative: Urinalysis was reviewed and there is no evidence of urinary tract infection or hematuria. COVID-19 PCR was reviewed and was positive. Influenza PCR was reviewed and was negative for influenza A and influenza B. RSV PCR was reviewed and was negative. Labs: Laboratory Results - last 24 hr 01/25/24 15:00 Urine Color Yellow Urine Clarity Clear Urine pH 6.0 Ur Specific [place] 1.015 Urine Protein Negative Urine Glucose (UA) Normal Urine Ketones Negative Urine Occult Blood 10 H Urine Nitrite Negative Urine Bilirubin Negative Urine Urobilinogen 1 H Ur Leukocyte Esterase Negative Urine RBC 0-5 SEEN Urine WBC 0-5 SEEN Ur Squamous Epith Cells 0-5 SEEN Ur Transition Epith Cell 0-5 SEEN Urine Bacteria RARE Hyaline Casts 0-5 SEEN Urine Mucus 0 SEEN Radiography Chest X-Ray - ED: 2 View, Read by ED Physician, Read by Radiologist and No Acute Disease Diagnostic Testing: Clinical Impression(s) from Imaging Studies Chest X-Ray 01/25/24 15:09 IMPRESSION: No acute abnormality is seen. Electronically Signed: Shar Whitley MD at 15:25 EDT , PA and lateral chest x-ray was obtained. There are 2 views. On my independent interpretation, lung carmichael are clear. There is normal cardiac silhouette. Bony thorax is normal. There is no acute process noted. Radiologist also interpreted the x-ray and agrees. Treatment and Re-Evaluation :: Patient was given a dose of Tylenol here. Patient's temperature actually increased to 102.4. Patient was given a dose of ibuprofen. Patient was advised of her findings. Patient was instructed to drink plenty of fluids. Patient was instructed to continue Tylenol or ibuprofen as needed for any fevers. Patient was instructed to follow-up with her primary care physician in 5 to 7 days. Patient understood and was agreeable with the plan. All questions were answered. Discharge Plan Triage Chief Complaint: General Illness ED Provider: Tao Moseley Dx/Rx/DC Orders Clinical Impression: COVID-19, Parkinson's disease, Essential hypertension Instructions: Coronavirus Disease 2019 (COVID-19): Caring for Yourself or Others Prescriptions: No Action rosuvastatin [Crestor] 20 mg tablet 20 mg PO QHS fenofibrate 160 mg tablet 160 mg PO DAILY omeprazole 40 mg capsule,delayed release(DR/EC) 40 mg PO DAILY aspirin [Adult Aspirin Regimen] 81 mg tablet,delayed release (DR/EC) 81 mg PO DAILY Patient Comments: was not told to stop for EGD losartan 25 mg tablet 25 mg PO QHS Calcium 600 + D(3) 600-125 mg-unit tablet 2 tab PO DAILY arginine HCl (L-arginine) 1,000 mg tablet 1,000 mg PO DAILY omega-3 fatty acids-fish oil [Fish Oil] 360-1,200 mg capsule 1 cap PO DAILY Patient Comments: stopped for EGD amlodipine 5 mg tablet 5 mg PO DAILY polyethylene glycol 3350 [Miralax] 17 gram/dose powder 4 g PO DAILY cholecalciferol (vitamin D3) 25 mcg (1,000 unit) capsule 25 mcg PO DAILY carbidopa-levodopa 25-100 mg tablet 1 tab PO .COMPLEX Qty: 90 5RF Rx Instructions: 1 Tab PO daily for one week then 1 tab BID for one week then 1 tab TID thereafter vitamin B complex [B Complex-Vitamin B12] Tablet 1 tab PO DAILY folic acid 1 mg tablet 2 mg PO DAILY arginine HCl (L-arginine) 1,000 mg tablet PO turmeric root extract 500 mg capsule 500 mg PO DAILY biotin 10,000 mcg tablet,chewable PO meloxicam 7.5 MG tablet 7.5 mg PO PRN PRN (Reason: Pain Or Fever) hydrocodone-acetaminophen 5-325 mg tablet 1 tab PO Q6H PRN (Reason: pain) 5 Days Qty: 20 0RF ondansetron 4 mg tablet,disintegrating 4 mg PO Q6H PRN (Reason: nausea and vomiting) Qty: 20 0RF Primary Care Provider: Arlet Ricketts Referrals: Arlet Ricketts MD [Primary Care Provider] - 5-7 Days Print Language: [place]ian Disposition Disposition: Home, Self Care
[2024-01-25] MEDS: Acetaminophen 500 MG Tablet 1000 MG PO (15:00)
--- NOTE | 2024-01-25 15:09 | RAD_ITS ---
STUDY: X-RAY CHEST REASON FOR EXAM: Female, 78 years old. Fever TECHNIQUE: PA and lateral views of the chest. COMPARISON: Comparison is made with prior study dated September 23, 2021. FINDINGS: Status post fusion of the lower cervical spine. The lungs are clear and expanded. There is no demonstrated pleural abnormality. Normal size heart. Normal mediastinum and deepa. Normal visualized pulmonary arteries. There is atherosclerotic calcification of the aortic arch with tortuosity. There are diffuse degenerative changes of the visualized thoracic spine. Normal visualized ribs, clavicles, and shoulders. There is no demonstrated abnormality of the visualized soft tissue structures of the upper abdomen. RAD/Chest PA and Lateral IMPRESSION: No acute abnormality is seen. Electronically Signed: Shar Whitley MD at 15:25 EDT ,
[2024-01-25 15:17] VITALS: BP 137/51; PULSE 68; RESP 18; TEMP 39.1; O2SAT 97
[2024-01-25 15:21] LABS: Mucous, Urine 0 SEEN /hpf (<or=2+)
[2024-01-25 15:27] LABS: Color, Urine Yellow (Yellow); Glucose, Dipstick Normal (Normal); Ketone-Dipstick Negative (Negative); Leukocyte Esterase-Dipstick Negative /ul (Negative); Nitrite-Dipstick Negative (Negative); Occult Blood-Urine 10 /ul (Negative); Protein-Dipstick Negative (Negative); Specific Gravity, Urine 1.015 (1.002-1.030); Urine Bilirubin Dipstick Negative (Negative); Urine Clarity Clear (Clear); Urine Urobilinogen 1 mg/dl (Normal)
[2024-01-25 16:00] VITALS: BP 126/48; PULSE 58; RESP 15; TEMP 37.4; O2SAT 96
[2024-01-25 16:17] LABS: Hyaline Cast 0-5 SEEN /lpf (0-5); Red Blood Cells-Urine 0-5 SEEN /hpf (0-5); Squamous Epithelial Cells - UA 0-5 SEEN /hpf (5-10); Transitional Epithelial - Ur 0-5 SEEN /hpf (0-5); White Blood Cells 0-5 SEEN /hpf (0-5)
[2024-01-25 16:18] LABS: Bacteria RARE /hpf (None Seen)
[2024-01-25] MEDS: Ibuprofen 600 MG Tablet PO (16:47)
[2024-01-25 16:48] VITALS: BP 126/48; PULSE 52; RESP 18; TEMP 37.4; O2SAT 97
== END 2024-01-25 16:51 | disposition home or self-care (01) ==
PROVIDERS: Emergency Provider Emergency Medicine; PCP Internal Medicine; Visit Provider Emergency Medicine
DX: U07.1 COVID-19 (principal); G20.A1 Parkinson's disease without dyskinesia, without mention of fluctuations; E11.9 Type 2 diabetes mellitus without complications; I10 Essential (primary) hypertension; I25.10 Atherosclerotic heart disease of native coronary artery without angina pectoris; E78.5 Hyperlipidemia, unspecified; Z79.82 Long term (current) use of aspirin; Z79.899 Other long term (current) drug therapy
CPT/HCPCS: 71046; 81001; 87631; 99283

== ENCOUNTER → 2024-03-03 | Outpatient (CLI) | payer MEDICARE, OTHER, SELFPAY ==
[2024-03-03 11:05] LABS: CREATININE FINGERSTICK < 1.0 mg/dL (0.55-1.02); EGFR FINGERSTICK > 60.0000 mL/min (>60)
== END | disposition home or self-care (01) ==
PROVIDERS: PCP Internal Medicine; Referring Provider Psychiatry & Neurology Neurology; Visit Provider Psychiatry & Neurology Neurology
DX: G20.A1 Parkinson's disease without dyskinesia, without mention of fluctuations (principal)
CPT/HCPCS: 70553; A9575

== ENCOUNTER → 2024-05-09 | Outpatient (CLI) | payer MEDICARE, OTHER, SELFPAY ==
--- NOTE | 2024-05-09 10:20 | BI_ITS ---
MAMMOGRAPHY - BILATERAL SCREENING REASON FOR EXAM: Female, 79 years old. Routine annual screening examination. PERTINENT HISTORY: Sisters with breast cancer. Mother with breast cancer. TECHNIQUE: Digital bilateral breast maris (3D mammographic acquisition) in the CC and MLO projections. 2-D mediolateral oblique (MLO) and craniocaudad (CC) views of both breasts were obtained. CAD: Full Field Digital Mammography with Computer Added Detection was performed. COMPARISON: Comparison is made with prior study dated May 07, 2023 and April 09, 2022. FINDINGS: Breast Composition: There are scattered areas of fibroglandular density. There are no dominant masses or suspicious calcifications. A tissue clip marker is now seen within a 8 mm nodule in the deep central slightly lateral aspect of the left breast. 2, tissue markers are seen in the inferior central and medial aspect of the right breast. No other significant abnormalities are identified. There has been no significant change since the prior study. BI/SCRN MAMM (CAD)W/MARIS BILAT IMPRESSION: Stable bilateral screening mammogram. Yearly follow-up mammogram recommended. (A) ASSESSMENT CATEGORY: BIRADS Category 2: Benign. A letter regarding these results will be sent to the patient by the facility within 30 days. Approximately 10% of breast cancers are not detected by mammography. A normal mammogram should not delay biopsy of a clinically suspicious abnormality. [id number] Electronically Signed: Shar Whitley MD at 11:12 EST ,
--- NOTE | 2024-05-09 10:24 | BD_ITS ---
STUDY: DUAL ENERGY X-RAY ABSORPTIOMETRY / DXA REASON FOR EXAM: Female, 79 years old. 627.8Menopausal postmenopausal BONE DENSITY REASON FOR EXAM -- Postmenopausal status TECHNIQUE: Bone Mineral Density (BMD) measurements of lumbar spine and bilateral hips were obtained. COMPARISON: Comparison is made with prior study dated April 09, 2022. FINDINGS: Lumbar Spine (L1-L4): g/cm2 (1.063) / T-score (-0.1) / Z-score (2.5) Findings are suggestive of normal bone density with a low fracture risk. Left Femur Total: g/cm2 (0.946) / T-score (0.0) / Z-score (1.9) Left Femoral Neck: g/cm2 (0.818) / T-score (-0.3) / Z-score (1.9) Right Femur Total: g/cm2 (0.847) / T-score (-0.8) / Z-score (1.1) Right Femoral Neck: g/cm2 (0.787) / T-score (-0.6) / Z-score (1.) The T-Scores on the most recent prior examination were: Lumbar Spine (L1-L4): There has been worsening of bone density since the previous examination. Left Femur Total: which represents a worsening of 3.5. Right Femur Total: which represents a worsening of 5.5%. BD/Dexa Bone Density Study IMPRESSION: The patient is considered normal as outlined below according to World Jose Organization (WHO) criteria with a low fracture risk. There has been worsening of bone density since the previous examination. Reference Information: The T-score is the number of standard deviations above or below the standard which is normal for young adults at their peak bone mineral density. The World Health Organization (WHO) interprets the T-scores as follows: Above -1 Normal bone density Between -1 and -2.5 Osteopenia Equal to / or below -2.5 Osteoporosis As a practical clinical guideline, osteopenia may be graded as follows: Mild -1 through -1.5 Moderate -1.6 through -2.0 Severe -2.1 through -2.4 The Z-score is the number of standard deviations above or below age-matched controls. A Z-score of less than -1.5 would be considered abnormal. References: 1. NIH Osteoporosis and Related Bone Diseases www osteo.org 2. International Society for Clinical Densitometry www iscd.org 3. National Osteoporosis Foundation www nof.org Electronically Signed: Shar Whitley MD at 15:22 EST ,
== END | disposition home or self-care (01) ==
LOC: OPBD 10:19
PROVIDERS: PCP Internal Medicine; Referring Provider Internal Medicine; Visit Provider Internal Medicine
DX: Z12.31 Encounter for screening mammogram for malignant neoplasm of breast (principal); Z78.0 Asymptomatic menopausal state
CPT/HCPCS: 77063; 77067; 77080

== ENCOUNTER 2024-05-10 15:00 | Outpatient (RCR) | payer MEDICARE, OTHER, SELFPAY ==
--- NOTE | 2023-11-12 12:19 | HP.PTEVAL_ITS ---
Patient's Visit Information Visit Information Visit Information: TANVI ESCOTO is a 78 year old F referred to Physical Therapy by Dr. Narendra Cruz MD with a diagnosis of Neck pain/back pain/ PD. Date of Evaluation: 11/12/23 Physical Therapist: CRISTOBAL Tao Visit Plan Frequency: 2x /Week Duration: 3 Months Plan: ++Pt fell today during the eval... was walking and caught her R foot and s he went down fast landing on her R shoulder and elbow. Her glasses did not break but did bend a little when she fell. Pt had a gash and a bruise on her L elbow for which we put a band aid and ice. She was able to move her elbow and shoulder without pain. We got her up from the floor with Mod A X 2 going from sitting on the floor to tall knee on a chair and was able to get up up and sit in the chair. After sitting she started to shake some (she said not sure if nerves or her typical PD). We got up after sitting a while and instructed pt in a cane in her R hand. She had no hip pain with walking but as we were walking she tripped on her R foot again but I had ahold of her. Use a gait belt at all times. I did discuss that she should use and cane and we will have to see if an AFO or an AFO strap might be appropriate for her. She did not want me to walk her over to Dr Ricketts's and thinks that she is just bruised up 2X/ week for 12 weeks for stretching of B calves and strengthening of B DF, gait with increase heel to toe, (may possibly need an AFO or other support and recommend a cane, neutral spine core stability, C-spine AROM, MT to C-spine paraspinals and trap region, postural exercises with HEP Subjective Subjective: She was just diagnosed with PD on October 25. She is not having a lot of trouble walking. If she goes grocery shopping by the end she will feel that she can hardly walk due to back pain. She is not having freezing episodes with walking. 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 No real issues with doing 2 things at once. She did have a fall but she did outside work and generally catches her ankle on something. She is not sure if she is picking up her feet or not. She has basement stairs and a railing and goes two feet to a stair. She has stiff knees and that depends on how they feel and her ability to go up and down the stairs. She just had an MRI of neck and back. Pt has pain into the R leg and gets feelings in the Quad on the R and that happens every night when she lays down. She has no pain into her arms. If she turns her neck to the R she is stiff and it catches and she gets sharp pain into her shoulder. She has tremors on the R side and thinks that R side. Pain C-spine pain: Pain Intensity (Out of 10): 0 Back pain: Pain Intensity (Out of 10): 0 Objective Objective: C-spine: flexion 100%, Ext 10%, Rot R 25 and L 50, SB B 25% in available ranges Pt had full L shoulder AROM and L elbow ROM Pt was able to get from supine to sit with MOD A Pt struggles to roll onto her side B (avis the L today due to L elbow pain) LE MMT: R hip flex 4-/5 and L 3+/ 5 (some slight soreness in the groin), R knee ext 4-/5 and L 3+/5, R knee flex 4-/5 and L 3+/5 Pt is able to heel raise. She is able to toe raise on the L but on the R she is not able to raise her toes very high off the ground. She has B calf tightness. She likes to forefoot abduct her R foot (prob due to decrease toe clearance) Gait: walks with shorter strides with decrease heel to toe gait pattern and occ catching of her R foot. She has some increase veering at times as well FGA 9 Balance/Special Test Scores Functional Gait Assessment Score: 9 % Disability: 70.0000 Lower Extremity Functional Score: 32 Goals Goal 1:: I HEP Goal Time Frame: 6-8 Weeks Goal 2:: Decrease neck and back pain by 50% Goal Time Frame: 6-8 Weeks Goal 3:: Be able to turn her neck to the R without having pain when she drives Goal Time Frame: 6-8 Weeks Goal 4:: Be able to get up 6 [address] step and back down (she has a flower bed that height) with cane and CGA Goal Time Frame: 6-8 Weeks Goal 5:: Be able to go up and down a flight of steps recip with 1 rail and not pulling self up onto the step. Goal Time Frame: 6-8 Weeks Rehabilitation Potential Rehabilitation Potential: Good Anticipated Interventions Patient/Client Instruction: Educate patient on: Condition and Plan of Care For the Purpose of:: To decrease pain, To increase ROM, To improve nutrient delivery to tissue, To improve muscle performance and motor function, To improve ability to perform ADL's, To increase tolerance to activity/condition/position, To improve performance and independence with ADL's, To decrease level of supervision to perform tasks, To improve ability of physical actions for home/community/work/leisure, To improve gait and locomotor functions, To improve health of tissue, To decrease soft tissue restriction, To increase flexibility/ROM and To improve balance Therapeutic Exercise to Include: Strength training, Endurance training, Balance training, Body mechanics, Postural training, Flexibilty training, Gait and locomotor training, Neuromotor development, Passive ROM, Active ROM, Dynamic Lumbar Stabilization and Scapular Strength/Stabilization For the Purpose of:: To decrease pain, To increase ROM, To improve nutrient delivery to tissue, To increase oxygenation perfusion, To improve muscle performance and motor function, To improve ability to perform ADL's, To increase tolerance to activity/condition/position, To improve performance and independence with ADL's, To decrease level of supervision to perform tasks, To improve ability of physical actions for home/community/work/leisure, To improve gait and locomotor functions, To improve health of tissue, To decrease soft tissue restriction and To increase flexibility/ROM Functional Training to Include: Gait training For the Purpose of:: To improve gait and locomotor functions and To improve safety with gait Manual Therapy Techniques to Include: Soft tissue mobilization For the Purpose of:: To decrease pain, To increase ROM, To improve nutrient delivery to tissue, To improve muscle performance and motor function, To improve health of tissue, To decrease soft tissue restriction and To increase flexibility/ROM Text: Thank you for the opportunity to evaluate your patient. For Medicare and Medicare HMO plans, please review the plan of care and approve it. It will need to be FAXED BACK to us at [phone] for Medicare purposes. For Medicare only, by signing this I certify the plan of care. Please let me know if there are questions or concerns regarding this plan of care. Physician Signature: Date:
--- NOTE | 2024-01-19 13:31 | HP.PTREVAL_ITS ---
Re-Evaluation Intro: Dr. Narendra Cruz MD, It has been my pleasure to treat TANVI ESCOTO over the last 2 visits for Neck pain/back pain/ PD. Please see the progress note below for an update on the physical therapy plan of care! Subjective Subjective: Pt goes back to Dr Cruz in January because the meds are not helping with her tremors. thinks that it is in the mild stage and progressing slowly. Pt has very minor hip pain and she is walking with a cane and getting more minor arthritis pain. The fractures look good. She has been on the cane for a couple of weeks now. She does not used it all the time at home. She is still sleeping in a recliner but will start to get back into bed soon. Pt is reports the ability to get going with walking or getting out of a chair is there and some freezing episodes are happening. Objective Objective/Function: Gait: walks with short steps with a straight cane holding onto therapist on the way back to treatment area. Worked on walking with straight cane with a gait belt working on looking straight ahead with good posture and slower pace but normal step length. (at one point during the eval as we were walking up to schedule the pt did trip on her R leg and she did catch herself with a little help with the therapists gait belt. LE MMT: R hip flex 4-/5 and L 3+/5 R knee ext 4/5 and L 4/5 R knee flex 4/5 and L 4/5 Supine to sit needed min A and verbal cues to get from log roll to sitting tight gastroc B.... Pt struggles with DF B Plan Plan Plan: 2X/ week for 12 weeks for strengthening of core and hip starting with mat exercises and then going to more standing, stretching of B calves and strengthening of B DF, gait with increase heel to toe, (may possibly need an AFO or other support and recommend a cane, Work on gait training with the cane and balance starting with standing head turns in // bars with gait belt on. HEP We are able to do C-spine AROM, MT to C-spine paraspinals and trap region, postural exercises if pt has neck pain since on the order. Balance/Gait/Functional tests Balance/Special Test Scores Functional Gait Assessment Score: 9 % Disability: 70.0000 Lower Extremity Functional Score: 24 Goals Goals Goal 1:: I HEP Goal Time Frame: 6-8 Weeks Goal 2:: Be able to walk confidently with a straight cane with occ head turns with CGA and without veering or LOB Goal Time Frame: 6-8 Weeks Goal 3:: Be able to turn her neck to the R without having pain when she drives Goal Time Frame: 6-8 Weeks Goal 4:: Be able to get up 6 [address] step and back down (she has a flower bed that height) with cane and CGA Goal Time Frame: 6-8 Weeks Goal 5:: Be able to go up and down a flight of steps recip with 1 rail and not pulling self up onto the step. Goal Time Frame: 6-8 Weeks Anticipated Interventions Anticipated Interventions Patient/Client Instruction: Educate patient on: Condition and Plan of Care For the Purpose of:: To decrease pain, To increase ROM, To improve nutrient delivery to tissue, To improve muscle performance and motor function, To improve ability to perform ADL's, To increase tolerance to activity/condition/position, To improve performance and independence with ADL's, To decrease level of supervision to perform tasks, To improve ability of physical actions for home/community/work/leisure, To improve gait and locomotor functions, To improve health of tissue, To decrease soft tissue restriction, To increase f lexibility/ROM and To improve balance Therapeutic Exercise to Include: Strength training, Endurance training, Balance training, Body mechanics, Postural training, Flexibilty training, Gait and locomotor training, Neuromotor development, Passive ROM, Active ROM, Dynamic Lumbar Stabilization and Scapular Strength/Stabilization For the Purpose of:: To decrease pain, To increase ROM, To improve nutrient delivery to tissue, To increase oxygenation perfusion, To improve muscle performance and motor function, To improve ability to perform ADL's, To increase tolerance to activity/condition/position, To improve performance and independence with ADL's, To decrease level of supervision to perform tasks, To improve ability of physical actions for home/community/work/leisure, To improve gait and locomotor functions, To improve health of tissue, To decrease soft tissue restriction and To increase flexibility/ROM Functional Training to Include: Gait training For the Purpose of:: To improve gait and locomotor functions and To improve safety with gait Manual Therapy Techniques to Include: Soft tissue mobilization For the Purpose of:: To decrease pain, To increase ROM, To improve nutrient delivery to tissue, To improve muscle performance and motor function, To improve health of tissue, To decrease soft tissue restriction and To increase flexibility/ROM Re-Evaluation Ending Re-evaluation ending: Please do not hesitate to contact me at [phone] by phone or if you have questions or concerns regarding this new plan of care! Sincerely, Lauren Irby, MPT
--- NOTE | 2024-02-21 15:34 | HP.PTREVAL ---
Re-Evaluation Intro: Dr. Narendra Cruz MD, It has been my pleasure to treat TANVI ESCOTO over the last 10 visits for Neck pain/back pain/ PD. Please see the progress note below for an update on the physical therapy plan of care! Subjective Subjective: Pt feels better than when she started. She wants to be farther along. She panics on doing curbs. Objective Objective/Function: Gait: walks without a straight cane with CGA entire department 1 lap with B forefoot abduction with slow hakan with good balance and very little veering Stairs: up and down recip with 1 hand rail pulling only very slightly up the steps SW walking: likes to ER rotate at the hip and forefoot abducction in each direction BW walking: able walking BW with CGA with slow cautious steps 6 inch curb step AND 4 inch curb step Rolling over on mat table with bed blanket to work on bed mobility and roll to prone on elblows Plan Plan Plan: (practice Time get up and go to work on ease of standing up and going, continue with curb steps, change direction with gait belt, Sw/bw WALKING, DUAL TASKING, picking up objects from floor, etc....may try some machines to increase strength in legs 2X/ week for 12 weeks for strengthening of core and hip starting with mat exercises and then going to more standing, stretching of B calves and strengthening of B DF, gait with increase heel to toe, (may possibly need an AFO or other support and recommend a cane, Work on gait training with the cane and balance starting with standing head turns in // bars with gait belt on. HEP We are able to do C-spine AROM, MT to C-spine paraspinals and trap region, postural exercises if pt has neck pain since on the order. Balance/Gait/Functional tests Balance/Special Test Scores Functional Gait Assessment Score: 9 % Disability: 70.0000 Lower Extremity Functional Score: 36 Goals Goals Goal 1:: I HEP Goal Time Frame: 6-8 Weeks Goal 2:: Be able to walk confidently with a straight cane with occ head turns with CGA and without veering or LOB Goal Time Frame: 6-8 Weeks Goal 3:: Be able to turn her neck to the R without having pain when she drives Goal Time Frame: 6-8 Weeks Goal 4:: Be able to get up 6 inch curb step and back down (she has a flower bed that height) with cane and CGA with confidence Goal Time Frame: 6-8 Weeks Goal Progress: Progressing Goal 5:: Be able to go up and down a flight of steps recip with 1 rail and not pulling self up onto the step. Goal Time Frame: 6-8 Weeks Goal Progress: Progressing Goal 6:: Be able to walk around the entire dept without the straight cane with CGA. Anticipated Interventions Anticipated Interventions Patient/Client Instruction: Educate patient on: Condition and Plan of Care For the Purpose of:: To decrease pain, To increase ROM, To improve nutrient delivery to tissue, To improve muscle performance and motor function, To improve ability to perform ADL's, To increase tolerance to activity/condition/position, To improve performance and independence with ADL's, To decrease level of supervision to perform tasks, To improve ability of physical actions for home/community/work/leisure, To improve gait and locomotor functions, To improve health of tissue, To decrease soft tissue restriction, To increase flexibility/ROM and To improve balance Therapeutic Exercise to Include: Strength training, Endurance training, Balance training, Body mechanics, Postural training, Flexibilty training, Gait and locomotor training, Neuromotor development, Passive ROM, Active ROM, Dynamic Lumbar Stabilization and Scapular Strength/Stabilization For the Purpose of:: To decrease pain, To increase ROM, To improve nutrient delivery to tissue, To increase oxygenation perfusion, To improve muscle performance and motor function, To improve ability to perform ADL's, To increase tolerance to activity/condition/position, To improve performance and independence with ADL's, To decrease level of supervision to perform tasks, To improve ability of physical actions for home/community/work/leisure, To improve gait and locomotor functions, To improve health of tissue, To decrease soft tissue restriction and To increase flexibility/ROM Functional Training to Include: Gait training For the Purpose of:: To improve gait and locomotor functions and To improve safety with gait Manual Therapy Techniques to Include: Soft tissue mobilization For the Purpose of:: To decrease pain, To increase ROM, To improve nutrient delivery to tissue, To improve muscle performance and motor function, To improve health of tissue, To decrease soft tissue restriction and To increase flexibility/ROM Re-Evaluation Ending Re-evaluation ending: Please do not hesitate to contact me at [phone] by phone or if you have questions or concerns regarding this new plan of care! Sincerely, Lauren Irby, MPT
--- NOTE | 2024-03-28 07:45 | HP.PTREVAL_ITS ---
Re-Evaluation Intro: Dr. Narendra Cruz MD, It has been my pleasure to treat TANVI ESCOTO over the last 18 visits for Neck pain/back pain/ PD. Please see the progress note below for an update on the physical therapy plan of care! Subjective Subjective: Pt reports that she still struggles with balance. She feels that standing on one foot and on the foam is a struggle. Other examples of balance being an issue is that at [employer] she was standing and felt like she was falling and it scared her. She feels that 2 X 10 sit to stands make her very tired. As far as walking and going up and down curbs she thinks that she is doing well. Objective Objective/Function: 1 lap walking around dept with no gait belt and SBA holding a tin (acting like a plate) 2:33 Gait without cane and with head turns and CGA. She was able to maintain balance but did not do a complete rotation of head FGA 15 Pt is able to go up and over a 6 inch step with no AD with SBA... did fatigue after about 5 of them Plan Plan Plan: 1X/ week for 4 weeks for HS stretching, HEP, progressive endurance ambulation, high level balance, stairs 1 rail recip, gait with head turns Balance/Gait/Functional tests Balance/Special Test Scores Functional Gait Assessment Score: 15 % Disability: 50.0000 Lower Extremity Functional Score: 41 Goals Goals Goal 1:: I HEP Goal Time Frame: 6-8 Weeks Goal 2:: Be able to walk confidently with a straight cane with occ head turns with CGA and without veering or LOB Goal Time Frame: 6-8 Weeks Goal Progress: Goal Met Goal 3:: Be able to turn her neck to the R without having pain when she drives Goal Time Frame: 6-8 Weeks Goal Progress: Goal Met Goal 4:: Be able to get up 6 [address] step and back down (she has a flower bed that height) with cane and CGA with confidence Goal Time Frame: 6-8 Weeks Goal Progress: Goal Met Goal 5:: Be able to go up and down a flight of steps recip with 1 rail and not pulling self up onto the step. Goal Time Frame: 6-8 Weeks Goal Progress: Progressing Goal 6:: Be able to walk around the entire dept without the straight cane with CGA for endurance and try and get up to 5 minutes without rest break. Anticipated Interventions Anticipated Interventions Patient/Client Instruction: Educate patient on: Condition and Plan of Care For the Purpose of:: To decrease pain, To increase ROM, To improve nutrient delivery to tissue, To improve muscle performance and motor function, To improve ability to perform ADL's, To increase tolerance to activity/condition/position, To improve performance and independence with ADL's, To decrease level of supervision to perform tasks, To improve ability of physical actions for home/community/work/leisure, To improve gait and locomotor functions, To improve health of tissue, To decrease soft tissue restriction, To increase flexibility/ROM and To improve balance Therapeutic Exercise to Include: Strength training, Endurance training, Balance training, Body mechanics, Postural training, Flexibilty training, Gait and locomotor training, Neuromotor development, Passive ROM, Active ROM, Dynamic Lumbar Stabilization and Scapular Strength/Stabilization For the Purpose of:: To decrease pain, To increase ROM, To improve nutrient delivery to tissue, To increase oxygenation perfusion, To improve muscle performance and motor function, To improve ability to perform ADL's, To increase tolerance to activity/condition/position, To improve performance and independence with ADL's, To decrease level of supervision to perform tasks, To improve ability of physical actions for home/community/work/leisure, To improve gait and locomotor functions, To improve health of tissue, To decrease soft tissue restriction and To increase flexibility/ROM Functional Training to Include: Gait training For the Purpose of:: To improve gait and locomotor functions and To improve safety with gait Manual Therapy Techniques to Include: Soft tissue mobilization For the Purpose of:: To decrease pain, To increase ROM, To improve nutrient delivery to tissue, To improve muscle performance and motor function, To improve health of tissue, To decrease soft tissue restriction and To increase flexibility/ROM Re-Evaluation Ending Re-evaluation ending: Please do not hesitate to contact me at [phone] by phone or if you have questions or concerns regarding this new plan of care! Sincerely, Lauren Irby, MPT
== END 2024-05-10 19:00 | disposition home or self-care (01) ==
LOC: PT 15:00
PROVIDERS: PCP Internal Medicine; Referring Provider Psychiatry & Neurology Neurology; Visit Provider Psychiatry & Neurology Neurology
DX: G20.A1 Parkinson's disease without dyskinesia, without mention of fluctuations (principal); M54.2 Cervicalgia; M54.50 Low back pain, unspecified; R26.9 Unspecified abnormalities of gait and mobility
CPT/HCPCS: 97110; 97140; 97162; 97530

== ENCOUNTER 2024-06-05 10:00 | Outpatient (RCR) | payer MEDICARE, OTHER, SELFPAY ==
--- NOTE | 2024-06-05 11:33 | HP.PTDCSUM ---
Discharge Summary D/C summary: It has been my pleasure to treat TANVI ESCOTO referred by Dr. Arlet Ricketts MD, with the diagnosis of Neck pain/back pain/PD for a total of 29 visit(s). Discharge Date: 06/05/24 Please see the following information for a summary of their discharge status. Subjective Subjective: Pt reports that she is doing her exercises. She reports that she has good days and bad days. Pain Right hip /buttocks: Pain Intensity (Out of 10): 0 Overall Improvement % Improvement: 90 Objective Objective/Function: All goals have been met and pain is not more intermittent Goals Goal 1:: I HEP Goal Progress: Goal Met Goal 2:: Be able to walk confidently with a straight cane with occ head turns with CGA and without veering Goal Progress: Goal Met Goal 3:: Be ablet to turn her neck to R without having pain when she drives Goal Progress: Goal Met Goal 4:: Be able to get up 6inch curb step and back down- she has a flower bed that height- with cane and CGA with confidence. Goal Progress: Goal Met Goal 5:: Be able to go up and down a flight of steps recip with 1 rial and not pullling self up onto the step Goal Progress: Goal Met Goal 6:: Be able to walk around the entire dept without straight cane with CGA for endurance and try to get up to 5min without rest ( 1 lap took 2:33') Goal Progress: Goal Met Plan Plan: DC PT to HEP D/C Information Discharge Comments: DC PT to HEP d/c sentence: If there are questions or concerns regarding this patient's physical therapy, please feel free to call me at [phone]. Thank you for the referral of this patient. Sincerely, Lauren Irby, MPT Balance/Gait/Functional tests Balance/Special Test Scores Lower Extremity Functional Score: 43 Improvement % Improvement: 90
== END 2024-06-05 13:42 | disposition home or self-care (01) ==
LOC: PT 10:00
PROVIDERS: PCP Internal Medicine; Referring Provider Internal Medicine; Visit Provider Internal Medicine
DX: G20.A1 Parkinson's disease without dyskinesia, without mention of fluctuations (principal); M54.2 Cervicalgia; M54.50 Low back pain, unspecified; R26.9 Unspecified abnormalities of gait and mobility; S32.592D Other specified fracture of left pubis, subsequent encounter for fracture with routine healing
CPT/HCPCS: 97110; 97140

== ENCOUNTER → 2024-11-07 | Outpatient (CLI) | payer MEDICARE, OTHER, SELFPAY ==
--- NOTE | 2024-11-07 12:35 | ST.MBS ---
Modified Barium Swallow Patient Information Study Date: 11/07/24 Study Time: 13:00 Direct Billable Minutes: 107 Total Minutes procedure & reportin Diagnosis: Parkinson's disease K22.4 Referring Physician: Shruti Garcia Reason for Referral: Patient recently established care w/ GI 09/12/2024 due to concerns for GERD and esophageal motility. She reported during her most recent GI office visit that she will drink water and it comes back up, but it isn?t acidic or like vomit. No nausea associated w/ the regurgitation of water. She also reported frequent coughing w/ eating and throat clearing throughout her day. She reported difficulty manipulating foods to the back of her throat to start her swallow. She follows w/ ENT, Dr. Flynn, for dysphonia. She reports having a ringed esophagus, which was dilated ~[address] Renner. Shruti Garcia CNP referred the patient for this MBSS to further assess concerns for swallow dysfunction. Of note, pt is also planned for an esophagram, esophageal manometry, and potential EGD. Medical History: PMH: Parkinson's disease, Vitamin D deficiency, Acquired esophageal ring, Chronic constipation, Other cervical disc degeneration, Tremor, Age-related cognitive decline, GERD, Atherosclerotic heart disease of [place] coronary artery without angina pectoris, DM type 2, Obesity, HLD, HTN, Hx of neck surgery (cervical fusion per pt), PNA (~5 years ago per pt) ? See EMR for full past medical and surgical history. Current Diet Ordered: Regular textures / Thin liquids Dentition: Natural Teeth Mental Status: WNL Respiratory Status: Oxygenating on Room Air Penetration-Aspiration Scale Penetration-Aspiration Scale: OBJECTIVE ASSESSMENT OF SWALLOW FUNCTION (QUANTITATIVE ? PER TRIAL): PENETRATION / ASPIRATION SCALE (BASS): 1 = does not enter airway 2 = enters airway/above vocal folds/ejected 3 = enters airway/above vocal folds/not ejected 4 = enters airway/contacts vocal folds/ejected 5 = enters airway/contacts vocal folds/not ejected 6 = enters airway/below vocal folds/ejected 7 = enters airway/below vocal folds/not ejected despite effort 8 = enters airway/below vocal folds/no effort VIDEOFLOROSCOPIC SCALE SCORE (BASS): Grade I = aspiration of material that has penetrated into the laryngeal vestibule, intact cough reflex Grade II = aspiration < 10 % of the bolus, intact cough reflex Grade III = aspiration of < 10 % of the bolus, reduced cough reflex or aspiration of > 10 % of the bolus, intact cough reflex Grade IV = aspiration of > 10 % of the bolus, reduced cough reflex Penetration-Aspiration Scale Score Thin Liquid via teaspoon: Result: 2= enter airway/above vocal folds/ejected Thin Liquid via teaspoon Trial 2: Result: 1= does not enter airway Thin Liquid via small single sip: cup: Result: 2= enter airway/above vocal folds/ejected [place] Thick Liquid via small single sip: cup: Result: 1= does not enter airway Pudding via teaspoon: Result: 1= does not enter airway Comment: Esophageal screen - Retention throughout the esophagus. Thin Liquid via single sip: straw: Result: 1= does not enter airway Comment: Esophageal screen - Liquid wash mostly cleared pudding through the LES. 1/2 Cookie: Result: 1= does not enter airway Comment: Esophageal screen - Retention of cookie throughout the esophagus w/ min retrograde flow. Thin Liquid via single sip: straw Trial 2: Result: 1= does not enter airway Comment: Esophageal screen - Liquid wash mostly cleared cookie through the LES. Thin Liquid via sequential sips:straw: Result: 1= does not enter airway Oral Phase Labial Seal: No Labial Escape Tongue Control During Bolus Hold: Posterior escape of less than half of bolus Bolus Preparation/Mastication: Slow prolonged chewing/mashing with complete recollection Bolus Transport/Lingual Motion: Repetitive/disorganized tongue motion Oral Residue: Majority of bolus remaining (piecemeal deglutition of cookie) Pharyngeal Phase Initiation of Pharyngeal Swallow: Bolus head in valleculae Soft Palate Elevation: Trace column of contrast/air between soft palate and pharyngeal wall Laryngeal Elevation: Comp. Superior move thyroid cart w/comp. apprx arytenoid cart-epig pet Anterior Hyoid Excursion: Partial anterior movement Epiglottic Movement: Partial inversion (Inconsistent) Laryngeal Vestibule Closure at Height of Swallow: Incomplete; narrow column of air/contrast in laryngeal vestibule Pharyngeal Stripping Wave: Present - diminished Pharyngoesophageal Segment Opening: Complete distension and complete duration; no obstruction of flow Tongue Base Retraction: Narrow column of contrast between tongue base & post. pharyngeal wall Pharyngeal Residue: Collection of residue within or on pharyngeal structures Esophageal Phase Esophageal Clearance: Esophageal retention w/ retrograde flow below pharyngoesophageal seg. Treatment Strategies Effects of treatment strategies attemped:: Liquid wash = effective. Diagnosis/Impression Diagnosis: Mild oropharyngeal dysphagia R13.12; Esophageal dysphagia R13.14 Impression: The oral phase is primarily marked by... -Lingual pumping for A-P transport. -Piecemeal deglutition of cookie. The pharyngeal phase is primarily marked by... -Mildly decreased pharyngeal motility due to decreased TB retraction and pharyngeal stripping wave -Decreased airway closure due to decreased anterior hyoid excursion and inconsistent epiglottic inversion. Trace laryngeal penetration of thin liquids 2X, which fully ejected. No aspiration. The esophageal phase is primarily marked by... -Retention of pudding and cookie throughout the esophagus, which mostly cleared when provided single liquid washes. Recommendations Diet: Regular Textures and Thin Liquids Comment: STOP meal if increased s/s of reflux, sensation of retention, or regurgitation despite use of strategies listed below and resume meal at a later time. Compensatory Strategies: Small Bites, Small Sips, Slow Rate, Alternate bites/solids and sips/liquids (Take a sip after every 1-2 bites) and Sitting upright (During and 60min after meals) Recommend Repeat Modified Barium Swallow: No Need for Skilled Speech Therapy Services: Yes Comment: -Train the patient in use of strategies to decrease risk for aspiration and reflux aspiration. -Train the patient in oropharyngeal exercise program given mild oropharyngeal dysphagia and hx of PD (lingual coordination exercises, Nai, effortful swallows, Shantelle). Recommended Referrals: GI Consult (Continue to follow w/ OP GI for management of dysphagia. Pt is safe for participation in esophagram.) Education Completed: 1. Described result of evaluation. Status Active ST Patient: Active Contact Information [facility] Speech Therapy:: Sehrly Iqbal M.A. CCC-INVENTORY ASSOCIATE AND DRIVER? Speech-Language Pathologist?? [facility] [address] [place] [address]? [email or web address]?? [phone]
== END | disposition home or self-care (01) ==
LOC: RAD 12:43
PROVIDERS: PCP Internal Medicine
DX: K22.4 Dyskinesia of esophagus (principal); K21.9 Gastro-esophageal reflux disease without esophagitis
CPT/HCPCS: 74230; 92611

== ENCOUNTER → 2024-11-09 | Outpatient (CLI) | payer MEDICARE, OTHER, SELFPAY ==
--- NOTE | 2024-11-09 08:25 | RAD_ITS ---
EXAM: Air-contrast esophagram barium swallow. CLINICAL HISTORY: Two-month history of dysphagia. COMPARISON: No prior study. TECHNIQUE: The patient ingested barium. Fluoroscopic imaging was obtained. Radiation dose: Fluoroscopy: 58 seconds. 4.06 mGy. FINDINGS: The patient ingested barium. No evidence of obstruction to the flow of contrast. No evidence of gastroesophageal reflux or hiatal hernia. The patient ingested a 12 mm tablet the barium. The tablet is trapped at the gastroesophageal junction. RAD/Esophagus Dual Contrast IMPRESSION: The ingested a 12 mm tablet the barium is trapped at the gastroesophageal junct ion. Endoscopic correlation recommended. Reading Location: [place] [id number]
== END | disposition home or self-care (01) ==
LOC: RAD 08:37
PROVIDERS: PCP Internal Medicine
DX: K22.4 Dyskinesia of esophagus (principal); K21.9 Gastro-esophageal reflux disease without esophagitis
CPT/HCPCS: 74221

== ENCOUNTER 2024-12-15 12:13 | Day surgery (SDC) | payer MEDICARE, OTHER, SELFPAY ==
--- NOTE | 2024-12-13 15:48 | PAT.ANESEVAL ---
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 When Was Last Pacemaker Check QUESTION #4 FULL TEXT: You/Your Family Experience fever (hyperthermia) with Anesthesia Last Oral Intake Last Oral intake: Last Oral Intake NPO since Meds taken in AM with sips of water? Meds patient instructed to take am of surgery PONV PONV - wood milling machine tender: PONV - wood milling machine tender Female Yes 12/13/24 11:08 HX of Motion Sickness Yes 12/13/24 11:08 HX of N/V After Surgery Yes 12/13/24 11:08 Non-Smoker Yes 12/13/24 11:08 Duration of Surgery greater No 12/13/24 11:08 than 60 minutes Number of Risk Factors 4 12/13/24 11:08 PONV Score Severe Risk 12/13/24 11:08 Height & Weight Height & Weight: Anesthesia: Height & Weight Height 5 ft 2 in 09/07/24 13:01 Respiratory Assessment Respiratory Assessment - wood milling machine tender: Respiratory Tract Infection Hx - wood milling machine tender Hx Respiratory Tract Infection No 12/13/24 11:08 STOP Sleep Apnea STOP Sleep Apnea - wood milling machine tender: STOP Sleep Apnea - wood milling machine tender Hx Hypertension Yes: states controlled with 12/13/24 11:08 med Hx Sleep Apnea Yes: DOESN'T USE BIPAP 12/13/24 11:08 CPAP No 12/13/24 11:08 BIPAP No 12/13/24 11:08 Do you snore loudly (louder than talking or can be heard Do you often feel tired/ fatigued/ sleepy during daytime? Has anyone observed you stop breathing during sleep? STOP Results Positive 12/13/24 11:08 QUESTION #5 FULL TEXT : Do you snore loudly (louder than talking or can be heard through closed doors)? 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: Tobacco Use History - wood milling machine tender Tobacco Use Smoking Status Never smoker 12/13/24 11:08 Hx Tobacco Use No 12/13/24 11:08 Years Smoking Packs Smoked per Day Smoking Cessation Date was within the last 15 years Hx Smoking Cessation Date Hx Smoking Cessation Counseling Hematologic Medial History Hematologic Hx - wood milling machine tender: Hematologic Medical Hx - documentation nurse Hx of Blood Transfusion No 12/13/24 11:08 Hx of Transfusion in last 3 No 12/13/24 11:08 Months Date of Last Transfusion (if within last 3 months) Ever experience any problems No 12/13/24 11:08 with transfusion(s)? Specify any problems Hx of Preganancy in last 3 No 12/13/24 11:08 Months Nurse Filling Out Transfusion MGRIANDREAS 12/13/24 11:08 & Questions: Date: 12/13/24 12/13/24 11:08 Time: 11:10 12/13/24 11:08 Patient unable to answer at this time (ie. confused, unrespo /Reproduction History /Reproductive History - wood milling machine tender: /Reproductive Hx- wood milling machine tender Hx Now No 12/13/24 11:08 Gestational Age (in weeks): EDC: Hx Hx Para Hx Section SAB No 12/13/24 11:08 [facility] Medical History (Updated 12/13/24 @ 11:17 by Lillie Mcclain) Wears glasses Easy bruising Difficulty swallowing PONV (postoperative nausea and vomiting) Gastric reflux Sleep apnea Hypertension Shortness of breath on exertion Non-smoker Leg cramps Cardiology follow-up encounter History of echocardiogram Parkinson's disease Vitamin D deficiency Acquired esophageal ring Chronic constipation Other cervical disc degeneration, unspecified cervical region Change in stool Tremor Age-related cognitive decline Positive YUDELKA (antinuclear antibody) Gastroesophageal reflux disease Atherosclerotic heart disease of [place] coronary artery without angina pectoris Type 2 diabetes mellitus Obesity Abnormal Heart Score CT Hyperlipidemia Essential hypertension Abnormal mammogram of right breast History of benign breast biopsy Cardiac murmur Osteoarthritis GERD (gastroesophageal reflux disease) Home Medications ?Medication ?Instructions ?Recorded ?Last Taken ?Type aspirin 81 mg tablet,delayed 81 mg PO DAILY 04/07/18 12/11/24 History release (Adult Aspirin Regimen) fenofibrate 160 mg tablet 160 mg PO DAILY 04/07/18 Unknown History losartan 25 mg tablet 25 mg PO QHS 04/07/18 Unknown History rosuvastatin 20 mg tablet (Crestor) 20 mg PO QHS cholesterol 04/07/18 Unknown History calcium carbonate-vitamin D3 600 1 tab PO DAILY 07/12/18 Unknown History mg-125 unit tablet (Calcium) arginine HCl (L-arginine) 1,000 mg 1,000 mg PO DAILY 05/12/23 Unknown History tablet biotin 10,000 mcg chewable tablet 10,000 mcg PO DAILY 05/12/23 Unknown History folic acid 1 mg tablet 2 mg PO DAILY 05/12/23 Unknown History vitamin B complex (B 1 tab PO DAILY 05/12/23 Unknown History Complex-Vitamin B12 tablet) amlodipine 5 mg tablet 5 mg PO DAILY 10/26/23 Unknown History cholecalciferol (vitamin D3) 25 25 mcg PO DAILY 10/26/23 Unknown History mcg (1,000 unit) capsule polyethylene glycol 3350 17 4 g PO DAILY 10/26/23 Unknown History gram/dose oral powder (Miralax) carbidopa 25 mg-levodopa 100 mg 1 tab PO TID #90 tabs 06/06/24 Unknown Rx tablet famotidine 20 mg tablet 20 mg PO QHS #90 tabs 11/16/24 Unknown Rx pantoprazole 40 mg tablet,delayed 40 mg PO QAM #90 tabs 11/16/24 Unknown Rx release cyanocobalamin (vitamin B-12) 500 500 mcg PO DAILY 12/13/24 Unknown History mcg tablet (Vitamin B-12) Allergy/AdvReac Type Severity Reaction Status Date / Time levofloxacin (From Levaquin) Allergy Severe dark Verified 12/13/24 11:02 urine, fever, sore throat benazepril (From Lotrel) Allergy Intermediate sleepy-couldn't Verified 12/13/24 11:02 function clarithromycin (From Biaxin) Allergy Intermediate Upset Verified 12/13/24 11:02 Stomach amoxicillin Allergy Mild rash Verified 12/13/24 11:02 codeine AdvReac Mild GI upset Verified 12/13/24 11:02 lisinopril AdvReac Mild sleepy Verified 12/13/24 11:02 Family History Mother Breast cancer Sister Breast cancer Sister Breast cancer Diabetes Hypertension Father Heart disease Cancer skin cancer Brother Cancer Heart disease Surgical History (Updated 12/13/24 @ 11:08 by Lillie Mcclain) History of esophagogastroduodenoscopy (EGD) History of arthroscopy of left knee History of left heart catheterization (07/22/18) History of wisdom tooth extraction History of colonoscopy (2007) History of neck surgery History of cholecystectomy Social History Smoking Status: Never smoker alcohol intake: never substance use type: does not use caffeine: Yes Audit: Pertinent Findings Pertinent Findings EKG Perinent findings: July 13, 2018. Sinus rhythm. Left anterior fascicular block. Voltage criteria for LVH. Echo (EF%) pertinent findings: May 28, 2022. EF of 60%. No aortic stenosis noted. Heart catheterization pertinent findings: July 22, 2018. Nonobstructive coronary arteries. EF of 60%. Consult pertinent findings: February 01, 2020. Dr. Morillo. 1. Atherosclerotic heart disease of [place] coronary artery without angina pectoralis-there is a history of atherosclerotic cardiovascular disease but not high-grade. Recommendation is to continue risk factor modification. 2. Hypertension-good control at this time. No changes at this time. Recommendation Anesthesia Recommendation Anesthesia recommendation: OPTIMIZED for anesthesia
[2024-12-15] VITALS (8 sets, daily range): BP systolic 125–154; BP diastolic 55–86; PULSE 57–73; RESP 16; TEMP 36.2–37.2; O2SAT 97–98; BMI 31.2
[2024-12-15] MEDS: Lactated Ringers 1,000 ML 15 ML IV (12:37)
--- NOTE | 2024-12-15 12:54 | PCM.HP.STD ---
HPI - General General Date of Admission: 12/15/24 Date of Service: 12/15/24 Chief Complaint: reflux HPI Narrative TANVI ESCOTO, is a 79 F who presents regarding concerns of water reflux. She states that after finishing a meal, she will drink water and only the water refluxes up in to her esophagus. She denies associated burning sensation and sour acid taste. She reports frequent cough while eating and throat clearing throughout the day. She does note some difficulty manipulating food boluses at times to the back of her throat to begin swallowing. She struggles with larger pills only and denies consistent food bolus types that cause issues. 11.07.24 MBS Diet: Regular Textures and Thin Liquids STOP meal if increased s/s of reflux, sensation of retention, or regurgitation despite use of strategies listed below and resume meal at a later time. Compensatory Strategies: Small Bites, Small Sips, Slow Rate, Alternate bites/solids and sips/liquids (Take a sip after every 1-2 bites) and Sitting upright (During and 60min after meals) Recommend Repeat Modified Barium Swallow: No Need for Skilled Speech Therapy Services: Yes 11.09.24 Barium swallow - The patient ingested barium. No evidence of obstruction to the flow of contrast. No evidence of gastroesophageal reflux or hiatal hernia. The patient ingested a 12 mm tablet the barium. The tablet is trapped at the gastroesophageal junction. 11.16.24 OV Continues to report water reflux. She states that her difficulty with taking larger pills has improved and she is experiencing reduced regurgitation. She admits to having issues remembering to take the second dose of the PPI. On consecutive days of taking both doses of the PPI she notes increased gas and bloating. She continues to deny any burning sensation. In reviewing the recommendations from speech therapist after the modified barium swallow study, Marli does not personally feel that speech therapy is warranted. All of the techniques that the therapist had mentioned during the swallow study, she already practices because of her Parkinson's disease. Marli states that the biggest thing for her to remember is to actually slow down while eating her food. [facility] Medical History Wears glasses Easy bruising Difficulty swallowing PONV (postoperative nausea and vomiting) Gastric reflux Sleep apnea Hypertension Shortness of breath on exertion Non-smoker Leg cramps Cardiology follow-up encounter History of echocardiogram Parkinson's disease Vitamin D deficiency Acquired esophageal ring Chronic constipation Other cervical disc degeneration, unspecified cervical region Change in stool Tremor Age-related cognitive decline Positive YUDELKA (antinuclear antibody) Gastroesophageal reflux disease Atherosclerotic heart disease of [place] coronary artery without angina pectoris Type 2 diabetes mellitus Obesity Abnormal Heart Score CT Hyperlipidemia Essential hypertension Abnormal mammogram of right breast History of benign breast biopsy Cardiac murmur Osteoarthritis GERD (gastroesophageal reflux disease) Home Medications ?Medication ?Instructions ?Recorded ?Last Taken ?Type aspirin 81 mg tablet,delayed 81 mg PO DAILY 04/07/18 12/11/24 History release (Adult Aspirin Regimen) fenofibrate 160 mg tablet 160 mg PO DAILY 04/07/18 Unknown History losartan 25 mg tablet 25 mg PO QHS 04/07/18 Unknown History rosuvastatin 20 mg tablet (Crestor) 20 mg PO QHS cholesterol 04/07/18 Unknown History calcium carbonate-vitamin D3 600 1 tab PO DAILY 07/12/18 Unknown History mg-125 unit tablet (Calcium) arginine HCl (L-arginine) 1,000 mg 1,000 mg PO DAILY 05/12/23 Unknown History tablet biotin 10,000 mcg chewable tablet 10,000 mcg PO DAILY 05/12/23 Unknown History folic acid 1 mg tablet 2 mg PO DAILY 05/12/23 Unknown History vitamin B complex (B 1 tab PO DAILY 05/12/23 Unknown History Complex-Vitamin B12 tablet) amlodipine 5 mg tablet 5 mg PO DAILY 10/26/23 12/15/24 08:00 History cholecalciferol (vitamin D3) 25 25 mcg PO DAILY 10/26/23 Unknown History mcg (1,000 unit) capsule polyethylene glycol 3350 17 4 g PO DAILY 10/26/23 Unknown History gram/dose oral powder (Miralax) carbidopa 25 mg-levodopa 100 mg 1 tab PO TID #90 tabs 06/06/24 12/15/24 08:00 Rx tablet famotidine 20 mg tablet 20 mg PO QHS #90 tabs 11/16/24 Unknown Rx pantoprazole 40 mg tablet,delayed 40 mg PO QAM #90 tabs 11/16/24 Unknown Rx release cyanocobalamin (vitamin B-12) 500 500 mcg PO DAILY 12/13/24 Unknown History mcg tablet (Vitamin B-12) Allergy/AdvReac Type Severity Reaction Status Date / Time levofloxacin (From Levaquin) Allergy Severe dark Verified 12/13/24 11:02 urine, fever, sore throat benazepril (From Lotrel) Allergy Intermediate sleepy-couldn't Verified 12/13/24 11:02 function clarithromycin (From Biaxin) Allergy Intermediate Upset Verified 12/13/24 11:02 Stomach amoxicillin Allergy Mild rash Verified 12/13/24 11:02 codeine AdvReac Mild GI upset Verified 12/13/24 11:02 lisinopril AdvReac Mild sleepy Verified 12/13/24 11:02 Family History Mother Breast cancer Sister Breast cancer Sister Breast cancer Diabetes Hypertension Father Heart disease Cancer skin cancer Brother Cancer Heart disease Surgical History History of esophagogastroduodenoscopy (EGD) History of arthroscopy of left knee History of left heart catheterization (07/22/18) History of wisdom tooth extraction History of colonoscopy (2007) History of neck surgery History of cholecystectomy Social History Smoking Status: Never smoker alcohol intake: never substance use type: does not use caffeine: Yes ROS Constitutional Constitutional: Denies fatigue, fever(s), poor appetite, weight gain or weight loss Gastrointestinal Gastrointestinal: Denies belching, bloating, change in bowel habits, change in stool character, chewing difficulty, coffee ground emesis, constipation, cramping, diarrhea, dyspepsia, dysphagia, early satiety, excessive flatus, fecal incontinence, heartburn, hematemesis, hematochezia, hemorrhoids, loose stools, melena, nausea, odynophagia, rectal bleeding, tenesmus, vomiting or weight changes Vital Signs Vital Signs Vital Signs: 12/15/24 12:31 12/15/24 12:31 Temperature 99 F Temperature Source Temporal Pulse Rate 65 Respiratory Rate 16 Respiratory Pattern Normal Blood Pressure 154/71 H Blood Pressure Mean 98 Blood Pressure Source Monitor Blood Pressure Position Semi-Fowlers Blood Pressure Location Right Arm Pulse Ox 98 Oxygen Delivery Method Room Air Weight Weight: 165 lb 5.547 oz Body Mass Index (BMI) 31.2 Physical Exam Const alert, oriented x3, no apparent distress and healthy appearing General Appearance: cooperative GI normal to inspection, nondistended, normoactive bowel sounds, soft to palpation, non-tender and non-distended Percussion: normal to percussion Rectal Exam: deferred Assessment & Plan Assessment/Plan (1) Esophageal dysmotility: (2) Gastroesophageal reflux disease: QUALIFIERS: Esophagitis presence: with esophagitis Esophagitis bleeding: without hemorrhage Qualified Code(s): K21.00 - Gastro-esophageal reflux disease with esophagitis, without bleeding PLAN: Assessment and Plan Assessment and Plan (1) Esophageal dysmotility: Status: Chronic (2) Gastroesophageal reflux disease: Status: Chronic Qualifiers: Esophagitis presence: with esophagitis Esophagitis bleeding: without hemorrhage Qualified Code(s): K21.00 - Gastro-esophageal reflux disease with esophagitis, without bleeding Medications: New famotidine 20 mg PO QHS 90 tabs 2RF Changed From pantoprazole Take 30minutes before eating breakfast and supper. 40 mg PO BID 60 tabs 2RF To pantoprazole Take 30minutes before eating breakfast. 40 mg PO QAM 90 tabs 2RF Plan ELIA ESCOTO, is a 79 F who presents to the office today for FU. Continues to report water reflux. She states that her difficulty with taking larger pills has improved and she is experiencing reduced regurgitation. She admits to having issues remembering to take the second dose of the PPI. On consecutive days of taking both doses of the PPI she notes increased gas and bloating. She continues to deny any burning sensation. Discussed options with her. Schedule EGD with dilation pantoprazole 40 mg PO changed to once daily due to increased complaints of gas and bloating Add famotidine 20 mg PO QHS Monitor food ingestion at mealtime and be mindful of slow eating Office follow-up 2 weeks post endoscopy
--- NOTE | 2024-12-15 13:01 | PCM.PRE.AN2 ---
ASA Classification* ASA Classification ASA Classification: 3 Assessment & Plan Anesthesia* Anesthesia Assessment Anesthesia Assessment: Discussed sedation and/or anesthesia options, risks, benefits, and alternatives with patient/parents/legal guardian/POA. Questions invited. The patient/parents/legal guardian/POA seems to understand and agrees to proceed with anesthesia plan. Reviewed the physical assessment, medical history, allergy history and patient home medications list prior to surgery/procedure/anesthetic and documented any changes. Performed airway and anesthesia risk assessments. Anesthesia Type Anesthesia Type: MAC History Source History Obtained from:: Patient and Chart Anesthesia Focused Assessment* Temperature: 99 F Pulse Rate: 65 Blood Pressure: 154/71 Respiratory Rate: 16 Pulse Ox: 98 Oxygen Delivery Method: Room Air Airway Assessment Mouth opens: >3 cm Mallampati Score: II Teeth Condition: Caps/Crowns (Patient has several crowns. They are all tight.) and Lower (Left lower permanent bridge. It is tight.) Neck Range of motion (ROM): Limited ROM (Somewhat Decreased) Labs Anesthesia Preop lab: CBC WBC 8.7 K/mm3 (4.4-11.0) 11/04/23 13:41 11/04/23 RBC 4.50 M/mm3 (4.2-5.4) 11/04/23 13:41 11/04/23 Hgb 12.8 g/dL (12.0-15.0) 11/04/23 13:41 11/04/23 Hct 39.3 % (37-47) 11/04/23 13:41 11/04/23 Plt Count 294 K/mm3 (150-450) 11/04/23 13:41 11/04/23 CHEMISTRY Potassium 4.0 mmol/L (3.5-5.1) 11/04/23 13:41 11/04/23 Sodium 139 mmol/L (136-145) 11/04/23 13:41 11/04/23 BUN 29 mg/dL (7-18) H 11/04/23 13:41 11/04/23 Creatinine 1.10 mg/dL (0.55-1.02) H 11/04/23 13:41 11/04/23 Glucose 135 mg/dL (74-106) H 11/04/23 13:41 11/04/23 POC Glucose 106 mg/dL (70-110) 05/26/20 06:25 09/19/19 TSH 1.36 uIU/mL (0.358-3.74) 11/04/23 13:41 11/04/23 COAG Pre-Assessment Diagnosis/Proposed Procedure Planned Operative Procedure(s): EGD Anesthesia History 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 When Was Last Pacemaker Check QUESTION #4 FULL TEXT: You/Your Family Experience fever (hyperthermia) with Anesthesia Last Oral Intake Last Oral intake: Last Oral Intake NPO since 09:00 12/15/24 12:31 Meds taken in AM with sips of No 12/15/24 12:31 water? Meds patient instructed to take am of surgery Any additional information?: Yes NPO since: 09:00 (Patient took meds at 9 AM.) Meds taken in AM with sips of water?: Yes PONV PONV - commercial hvac technician: PONV - commercial hvac technician Female Yes 12/13/24 11:08 HX of Motion Sickness Yes 12/13/24 11:08 HX of N/V After Surgery Yes 12/13/24 11:08 Non-Smoker Yes 12/13/24 11:08 Duration of Surgery greater No 12/13/24 11:08 than 60 minutes Number of Risk Factors 4 12/13/24 11:08 PONV Score Severe Risk 12/13/24 11:08 Height & Weight Height & Weight: Anesthesia: Height & Weight Height 5 ft 1 in 12/15/24 12:31 Weight: 75 kg 12/15/24 12:31 Body Mass Index (BMI) 31.2 12/15/24 12:31 Respiratory Assessment Respiratory Assessment - commercial hvac technician: Respiratory Tract Infection Hx - commercial hvac technician Hx Respiratory Tract Infection No 12/13/24 11:08 STOP Sleep Apnea STOP Sleep Apnea - commercial hvac technician: STOP Sleep Apnea - commercial hvac technician Hx Hypertension Yes: states controlled with 12/13/24 11:08 med Hx Sleep Apnea Yes: DOESN'T USE BIPAP 12/13/24 11:08 CPAP No 12/13/24 11:08 BIPAP No 12/13/24 11:08 Do you snore loudly (louder than talking or can be heard Do you often feel tired/ fatigued/ sleepy during daytime? Has anyone observed you stop breathing during sleep? STOP Results Positive 12/13/24 11:08 QUESTION #5 FULL TEXT : Do you snore loudly (louder than talking or can be heard through closed doors)? 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 Specify any problems Hx of Preganancy in last 3 No 12/13/24 11:08 Months Nurse Filling Out Transfusion MGRIFFITH 12/13/24 11:08 & Questions: Date: 12/13/24 12/13/24 11:08 Time: 11:10 12/13/24 11:08 Patient unable to answer at this time (ie. confused, unrespo /Reproduction History /Reproductive History - commercial hvac technician: /Reproductive Hx- commercial hvac technician Hx Now No 12/13/24 11:08 Gestational Age (in weeks): EDC: Hx Hx Para Hx Section SAB No 12/13/24 11:08 Active Medications Active Medications: Current Medications Generic Name Dose Route Start Last Admin Trade Name Freq PRN Reason Stop Dose Admin Lactated Ringer's 1,000 mls @ 15 mls/hr 12/15/24 12:30 12/15/24 12:37 IV 15 mls/hr .Q48H ANGIE Administration PFSH Medical History Wears glasses Easy bruising Difficulty swallowing PONV (postoperative nausea and vomiting) Gastric reflux Sleep apnea Hypertension Shortness of breath on exertion Non-smoker Leg cramps Cardiology follow-up encounter History of echocardiogram Parkinson's disease Vitamin D deficiency Acquired esophageal ring Chronic constipation Other cervical disc degeneration, unspecified cervical region Change in stool Tremor Age-related cognitive decline Positive YUDELKA (antinuclear antibody) Gastroesophageal reflux disease Atherosclerotic heart disease of [place] coronary artery without angina pectoris Type 2 diabetes mellitus Obesity Abnormal Heart Score CT Hyperlipidemia Essential hypertension Abnormal mammogram of right breast History of benign breast biopsy Cardiac murmur Osteoarthritis GERD (gastroesophageal reflux disease) Home Medications ?Medication ?Instructions ?Recorded ?Last Taken ?Type aspirin 81 mg tablet,delayed 81 mg PO DAILY 04/07/18 12/11/24 History release (Adult Aspirin Regimen) fenofibrate 160 mg tablet 160 mg PO DAILY 04/07/18 Unknown History losartan 25 mg tablet 25 mg PO QHS 04/07/18 Unknown History rosuvastatin 20 mg tablet (Crestor) 20 mg PO QHS cholesterol 04/07/18 Unknown History calcium carbonate-vitamin D3 600 1 tab PO DAILY 07/12/18 Unknown History mg-125 unit tablet (Calcium) arginine HCl (L-arginine) 1,000 mg 1,000 mg PO DAILY 05/12/23 Unknown History tablet biotin 10,000 mcg chewable tablet 10,000 mcg PO DAILY 05/12/23 Unknown History folic acid 1 mg tablet 2 mg PO DAILY 05/12/23 Unknown History vitamin B complex (B 1 tab PO DAILY 05/12/23 Unknown History Complex-Vitamin B12 tablet) amlodipine 5 mg tablet 5 mg PO DAILY 10/26/23 12/15/24 08:00 History cholecalciferol (vitamin D3) 25 25 mcg PO DAILY 10/26/23 Unknown History mcg (1,000 unit) capsule polyethylene glycol 3350 17 4 g PO DAILY 10/26/23 Unknown History gram/dose oral powder (Miralax) carbidopa 25 mg-levodopa 100 mg 1 tab PO TID #90 tabs 06/06/24 12/15/24 08:00 Rx tablet famotidine 20 mg tablet 20 mg PO QHS #90 tabs 11/16/24 Unknown Rx pantoprazole 40 mg tablet,delayed 40 mg PO QAM #90 tabs 11/16/24 Unknown Rx release cyanocobalamin (vitamin B-12) 500 500 mcg PO DAILY 12/13/24 Unknown History mcg tablet (Vitamin B-12) Allergy/AdvReac Type Severity Reaction Status Date / Time levofloxacin (From Levaquin) Allergy Severe dark Verified 12/13/24 11:02 urine, fever, sore throat benazepril (From Lotrel) Allergy Intermediate sleepy-couldn't Verified 12/13/24 11:02 function clarithromycin (From Biaxin) Allergy Intermediate Upset Verified 12/13/24 11:02 Stomach amoxicillin Allergy Mild rash Verified 12/13/24 11:02 codeine AdvReac Mild GI upset Verified 12/13/24 11:02 lisinopril AdvReac Mild sleepy Verified 12/13/24 11:02 Family History Mother Breast cancer Sister Breast cancer Sister Breast cancer Diabetes Hypertension Father Heart disease Cancer skin cancer Brother Cancer Heart disease Surgical History History of esophagogastroduodenoscopy (EGD) History of arthroscopy of left knee History of left heart catheterization (07/22/18) History of wisdom tooth extraction History of colonoscopy (2007) History of neck surgery History of cholecystectomy Social History Smoking Status: Never smoker alcohol intake: never substance use type: does not use caffeine: Yes Review of Systems (Anesthesia) ROS Narrative System reviewed and no additional complaints, except as documented.
--- NOTE | 2024-12-15 13:30 | EGD_PTH ---
PATIENT: TANVI ESCOTO LOC: EN U#:[id number] AGE/SX: 79/F ROOM: RE12/15/[address]: Dr. Aaron Mcqueen DO : 1945 BED: DIS: 12/15/2024 SPEC #: [id number] RECD: 12/15/24 14:52 STATUS: PENNY RENancy #: [id number] LUCRETIA: 12/15/24 13:[address]: Aaron Mcqueen DEPT: SURGICAL PATHOLOGY RECD BY: Dat Abarca ENTERED: 12/18/24 10:46 SP TYPE: EGD BIOPSY JOSE ALBERTO DR: Dr. Arlet Ricketts MD Tissues: A - Esophagus, NOS B - Gastric mucous membrane Procedures: Immunohistochemical Stains Surgery Specimen Level IV HEADER OPERATION: EGD with biopsy and dilation PRE-OP DIAGNOSIS: Esophageal dysmotility, gastroesophageal reflux disease TISSUE SUBMITTED: A- Distal esophagus biopsy, B- Gastric body polyp biopsy MICROSCOPIC DIAGNOSIS A. Distal esophagus, biopsy: Squamous mucosa with reactive changes. Columnar mucosa negative for goblet cell metaplasia. Negative for dysplasia. B. Gastric body, polyp, biopsy: Hyperplastic polyp. IHC negative for H .pylori organisms. MICROSCOPIC DESCRIPTION Slides are reviewed. All matched controls reacted appropriately. These tests were developed and their performance characteristics determined by [facility]. They may not have been cleared or approved by the U.S. Food and Drug Administration. The FDA has determined that such clearance or approval is not necessary. The above immunohistochemical/dualISH markers are viewed by the Pathologist. GROSS DESCRIPTION A. Received in fixative is one container labeled with the patient's name and designated Distal esophagus biopsy. The specimen consists of two irregular fragments of light nelson soft tissue that measure 0.4 and 0.5 cm. The specimen is totally submitted in one cassette. B. Received in fixative is one container labeled with the patient's name and designated Gastric body polyp biopsy. The specimen consists of two irregular fragments of light nelson soft tissue, each measuring 0.4 cm. The specimen is totally submitted in one cassette. OK 12/18/2024 CPT:32007x8 ,62721
[2024-12-15] MEDS: Lidocaine 1% (5 ml sdv) 5 ML Vial 10 ML IV (13:34)
--- NOTE | 2024-12-15 13:48 | OP.EGD_ITS ---
Patient Name: Ally Navarro Procedure Date: 12/15/2024 1:24 PM Date of : 1945 Age: 79 Procedure: Upper GI endoscopy Indications: Dysphagia Providers: Aaron Mcqueen DO Referring MD: Arlet Ricketts Medicines: Monitored Anesthesia Care Patient Profile: This is a 79 year old female. Refer to note in patient chart for documentation of history and physical. Patient has symptoms of chronic dysphagia and dysphagia with solids. Complications: No immediate complications. Procedure: Pre-Anesthesia Assessment: - Prior to the procedure, a History and Physical was performed, and patient medications and allergies were reviewed. The patient is competent. The risks and benefits of the procedure and the sedation options and risks were discussed with the patient. All questions were answered and informed consent was obtained. Patient identification and proposed procedure were verified by the physician in the pre-procedure area. Mental Status Examination: alert and oriented. Airway Examination: normal oropharyngeal airway and neck mobility. Respiratory Examination: clear to auscultation. CV Examination: normal. Prophylactic Antibiotics: The patient does not require prophylactic antibiotics. Prior Anticoagulants: The patient has taken no anticoagulant or antiplatelet agents except for NSAID medication. ASA Grade Assessment: II - A patient with mild systemic disease. After reviewing the risks and benefits, the patient was deemed in satisfactory condition to undergo the procedure. The anesthesia plan was to use monitored anesthesia care (MAC). Immediately prior to administration of medications, the patient was re-assessed for adequacy to receive sedatives. The heart rate, respiratory rate, oxygen saturations, blood pressure, adequacy of pulmonary ventilation, and response to care were monitored throughout the procedure. The physical status of the patient was re-assessed after the procedure. After obtaining informed consent, the endoscope was passed under direct vision. Throughout the procedure, the patient's blood pressure, pulse, and oxygen saturations were monitored continuously. The gastroscope was introduced through the mouth, and advanced to the second part of duodenum. The upper GI endoscopy was accomplished without difficulty. The patient tolerated the procedure well. Scope In: 1:35:37 PM Scope Out: 1:41:53 PM Total Procedure Duration Time 0 hours 6 minutes 16 seconds Findings: The Z-line was irregular and was found 40 cm from the incisors. Biopsies were taken with a cold forceps for histology. Verification of patient identification for the specimen was done. Estimated blood loss was minimal. Abnormal motility was noted in the esophagus. The cricopharyngeus was abnormal. There is a decrease in motility of the esophageal body. The distal esophagus/lower esophageal sphincter is spastic, but gives up passage to the endoscope. A moderate Schatzki ring was found at the gastroesophageal junction. A guidewire was placed and the scope was withdrawn. Dilation was performed with a Savary dilator with no resistance at 54 Fr. The dilation site was examined and showed moderate improvement in luminal narrowing. Estimated blood loss was minimal. Multiple 5 mm hyperplastic polyps with no stigmata of recent bleeding were found in the cardia, in the gastric fundus and in the gastric body. The polyp was removed with a jumbo cold forceps. Resection and retrieval were complete. Verification of patient identification for the specimen was done. Estimated blood loss was minimal. No gross lesions were noted in the first portion of the duodenum. Impression: - Z-line irregular, 40 cm from the incisors. Biopsied. - Abnormal esophageal motility. - Moderate Schatzki ring. Dilated. - Multiple gastric polyps. Resected and retrieved. - No gross lesions in the first portion of the duodenum. Recommendation: - Discharge patient to home. - Resume previous diet. - Continue present medications. - Await pathology results. Procedure Code(s): --- Professional --- 85816, Esophagogastroduodenoscopy, flexible, transoral; with insertion of guide wire followed by passage of dilator(s) through esophagus over guide wire 90810, 59,51, Esophagogastroduodenoscopy, flexible, transoral; with biopsy, single or multiple CPT copyright 2021 [employer] [place] [employer]. All rights reserved. The codes documented in this report are preliminary and upon zoo director review may be revised to meet current compliance requirements. Aaron Mcqueen DO 12/15/2024 1:48:32 PM This report has been signed electronically. Number of Addenda: 0 Note Initiated On: 12/15/2024 1:24 PM
--- NOTE | 2024-12-15 13:49 | OP.PROVAT_ITS ---
12/15/2024 Arlet Ricketts Re : Upper GI endoscopy procedure for Ally Navarro Dear Liliam This procedure was performed on Sunday, December 15, 2024. My impressions and recommendations are as follows: Impressions : - Z-line irregular, 40 cm from the incisors. Biopsied. - Abnormal esophageal motility. - Moderate Schatzki ring. Dilated. - Multiple gastric polyps. Resected and retrieved. - No gross lesions in the first portion of the duodenum. Recommendations : - Discharge patient to home. - Resume previous diet. - Continue present medications. - Await pathology results. My findings are described in the full procedure note, which is enclosed. If I can be of further assistance, please feel free to contact me at . Sincerely, Aaron Mcqueen, 12/15/2024 1:48:32 PM This report has been signed electronically.
--- NOTE | 2024-12-15 13:50 | PCM.POST.ANE ---
Anesthesia: Postop Eval I Current Vital Signs Temperature: 97.1 F Pulse Rate: 73 Blood Pressure: 129/86 Respiratory Rate: 16 Pulse Ox: 97 Assessment Airway patent: Yes Spontaneous unlabored respirations: Yes nausea: No Vomiting: No Anesthesia Complication: No Fluid Hydration Crystalloid volume administer (ml): 200 Total IV fluid infused: 200 Progress Note Anesthesia document: Postop Eval 1 completed: Yes
--- NOTE | 2024-12-15 16:15 | POSTOPAN2_ITS ---
Anesthesia Postop Eval I Sum Postop Eval Completion status Anesthesia document: Postop Eval 1 completed: Yes Anesthesia Postop Eval I Summary Anesthesia Postop Eval I Summary: Anesthesia Postop Eval I: Assessment Summary Airway patent Yes 12/15/24 13:50 SPECIALIST [email or web address] Spontaneous unlabored Yes 12/15/24 13:50 SPECIALIST FIELD [email or web address].[email or web address] respirations Mental status nausea No 12/15/24 13:50 SPECIALIST FIELD [email or web address].[email or web address] Vomiting No 12/15/24 13:50 SPECIALIST FIELD [email or web address].[email or web address] Anesthesia Postop Eval I: Fluid Summary Crystalloid volume administer 200 12/15/24 13:50 SPECIALIST FIELD [email or web address].[email or web address] (ml) Colloids volume administered ( ml) Blood Product volume administered (ml) Total IV fluid infused 200 12/15/24 13:50 SPECIALIST FIELD [email or web address].[email or web address] Anesthesia Postop Eval I: Summary Notes Anesthesia Complication No 12/15/24 13:50 SPECIALIST FIELD [email or web address].[email or web address] Anesthesia Complication Comment: Post-operative progress note Anesthesia: Postop Eval II Evaluation Mental status: Awake and Calm Pain Level: 0 nausea: No Vomiting: No Complications Anesthesia Complication: No
--- NOTE | 2024-12-15 16:15 | PCM.POSTANE2 ---
Anesthesia Postop Eval I Sum Postop Eval Completion status Anesthesia document: Postop Eval 1 completed: Yes Anesthesia Postop Eval I Summary Anesthesia Postop Eval I Summary: Anesthesia Postop Eval I: Assessment Summary Airway patent Yes 12/15/24 13:50 AIRLINE [email or web address] [email or web address] Spontaneous unlabored Yes 12/15/24 13:50 AIRLINE TICKET [email or web address] respirations Mental status nausea No 12/15/24 13:50 AIRLINE [email or web address] [email or web address] Vomiting No 12/15/24 13:50 AIRLINE [email or web address] [email or web address] Anesthesia Postop Eval I: Fluid Summary Crystalloid volume administer 200 12/15/24 13:50 AIRLINE [email or web address] [email or web address] (ml) Colloids volume administered ( ml) Blood Product volume administered (ml) Total IV fluid infused 200 12/15/24 13:50 AIRLINE TICKET [email or web address].[email or web address] Anesthesia Postop Eval I: Summary Notes Anesthesia Complication No 12/15/24 13:50 AIRLINE [email or web address] [email or web address].[email or web address] Anesthesia Complication Comment: Post-operative progress note Anesthesia: Postop Eval II Evaluation Mental status: Awake and Calm Pain Level: 0 nausea: No Vomiting: No Complications Anesthesia Complication: No
== END 2024-12-15 14:39 | disposition home or self-care (01) ==
LOC: EN 12:13 → AC 12:16
PROVIDERS: PCP Internal Medicine; Referring Provider Internal Medicine; Visit Provider Internal Medicine Gastroenterology
PROC: 0DJ08ZZ Inspection of Upper Intestinal Tract, Via Natural or Artificial Opening Endoscopic (ICD-10-PCS; CPT 43235; principal; 2024-12-15 13:25)
DX: K21.00 Gastro-esophageal reflux disease with esophagitis, without bleeding (principal); G20.A1 Parkinson's disease without dyskinesia, without mention of fluctuations; E11.9 Type 2 diabetes mellitus without complications; K22.2 Esophageal obstruction; I10 Essential (primary) hypertension; E55.9 Vitamin D deficiency, unspecified; E66.9 Obesity, unspecified; E78.5 Hyperlipidemia, unspecified; I25.10 Atherosclerotic heart disease of native coronary artery without angina pectoris; Z68.31 Body mass index [BMI] 31.0-31.9, adult; Z90.49 Acquired absence of other specified parts of digestive tract; Z79.82 Long term (current) use of aspirin; Z79.899 Other long term (current) drug therapy; K31.7 Polyp of stomach and duodenum
CPT/HCPCS: 43239; 43248; 88305; 88342; C1769

== ENCOUNTER → 2025-03-01 | Outpatient (CLI) | payer MEDICARE, OTHER, SELFPAY ==
[2025-03-01 10:51] LABS: Mucous, Urine 0 SEEN /hpf (<or=2+); Red Blood Cells-Urine 0 SEEN /hpf (0-5); Squamous Epithelial Cells - UA 0 SEEN /hpf (5-10)
[2025-03-01 10:55] LABS: Color, Urine Yellow (Yellow); Glucose, Dipstick Normal (Normal); Ketone-Dipstick Negative (Negative); Leukocyte Esterase-Dipstick Negative /ul (Negative); Nitrite-Dipstick Negative (Negative); Occult Blood-Urine 10 /ul (Negative); Protein-Dipstick Negative (Negative); Specific Gravity, Urine 1.020 (1.002-1.030); Urine Bilirubin Dipstick Negative (Negative)
[2025-03-01 10:57] LABS: Hematocrit 40.2 % (37-47); Hemoglobin 13.5 g/dL (12.0-15.0); Immature Granulocytes Count 0.020 X10^3/uL (0.0-0.0); Mean Corp Hgb Conc 33.6 g/dL (32-36); Mean Corpuscular Volume 87.2 fL (81-99); Mean Platelet Vol. 9.5 fl (6.2-12.0); NRBC Flagged by Analyzer 0 % (0-5); Platelet Count 284 K/mm3 (150-450); RBC Distribution Width CV 13.7 % (11.6-14.6); RBC Distribution Width SD 43.8 fl (35.1-43.9); Red Blood Count 4.61 M/mm3 (4.2-5.4); White Blood Count 6.8 K/mm3 (4.4-11.0)
[2025-03-01 11:18] LABS: AST(SGOT) 25 U/L (<=31); Alanine Aminotransfer ALT/SGPT 10 U/L (<=34); Albumin, Serum 4.3 g/dL (3.4-4.8); Alkaline Phosphatase 57 U/L (35-104); Anion Gap 10 (5-15); BUN 25 mg/dL (4-19); BUN/Creat Ratio 28.7 RATIO (10-20); Calcium,Total 10.3 mg/dL (7.6-11.0); Carbon Dioxide 26.7 mmol/L (21.0-32.0); Chloride 106 mmol/L (98-108); Creatinine, Urine (random) 110.00 mg/dL (28.00-217.00); Globulin 2.3 g/dL (2.2-4.2); Glucose 102 mg/dL (70-99); Microalbumin,Random Urine 48.6 mg/L (<20 mg/L); Potassium 4.2 mmol/L (3.3-5.1)
== END | disposition home or self-care (01) ==
LOC: LABSPEC 10:30
PROVIDERS: PCP Internal Medicine; Referring Provider Internal Medicine; Visit Provider Internal Medicine
DX: E11.9 Type 2 diabetes mellitus without complications (principal)
CPT/HCPCS: 80053; 81001; 82043; 82570; 85025

== ENCOUNTER 2025-04-09 11:00 | Outpatient (RCR) | payer MEDICARE, OTHER, SELFPAY ==
--- NOTE | 2025-02-05 16:14 | HP.PTEVAL_ITS ---
Patient's Visit Information Visit Information Visit Information: TANVI ESCOTO is a 79 year old F referred to Physical Therapy by Dr. Narendra Cruz MD with a diagnosis of PD. 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 She saw Dr Chandra and met with his PA and was sent to pain management for her back. She had an injection in October in her LB and it did not work. Now she has pain down her R side and she can not bend or stoop. She just saw Dr Cruz and she feels that she is losing some of her confidence again. She was going to take steep steps down to the basement and she got to the top of the steps and was carrying the cookies and looked down the steps and started to panic and she fell BW because she tried to stop herself down her steps. She finds it harder for her to do things. That was the only near fall. Dr Medina said to get a foot brace but Dr Alberto said to not. Her sister is getting worse and she can still take care of herself. She can not stand without feeling shaky. Her R leg is giving her a problem. Her PD meds was just doubled as of yesterday. She goes back to in Apr. She have used her cane a few times due to the pain in her leg and she is not comfortable with her cane. She is getting another injection in her back on Wednesday. She is not doing a lot of exercises at home except some of her back and it hurts hurt to do them. She wants to work on her confidence with walking, stairs, balance etc. She is tired of being in back pain. She is also struggling to get out of her chair again. Pain Back pain: Pain Intensity (Out of 10): 0 R leg pain: Pain Intensity (Out of 10): 0 Objective Objective: Gait: walks with B foot ER and decreased heel to toe gait pattern wit some veering to correct stepping out at times. Pt very hesitant to turn head and slow to make turns Pt struggles to continuous pickling line pickler and object from the floor due to back pain and balance. She did better holding onto counter and bringing one leg back LE MMT: R hip flex 7.7 and L 11.1 R knee ext 20.5 and L 13.8 R knee flex 6.6 and L 6.2 R DF 5.9 and L 6.7 Standing heel raises normal B and standing toe raises not able to raise the R at all except toe movement. FGA: 8 Seated opp arm and leg X 10 each leg with out messing up. Sit to stand: able to get up out of the chair without using her arms on second attempt. Balance/Special Test Scores Functional Gait Assessment Score: 8 % Disability: 73.3400 Lower Extremity Functional Score: 19 Goals Goal 1:: I HEP Goal Time Frame: 6-8 Weeks Goal 2:: Be able to continuous pickling line pickler objects from the floor with least restrictive UE support and always with a gait belt. Goal Time Frame: 6-8 Weeks Goal 3:: Increase balance (FGA at eval: 8) Goal Time Frame: 6-8 Weeks Goal 4:: Be able to step over hurdles with CGA without hesitancy Goal Time Frame: 6-8 Weeks Goal 5:: Be able to step up onto a curb step with CGA and no hesitancy Goal Time Frame: 6-8 Weeks Anticipated Interventions Patient/Client Instruction: Educate patient on: Condition and Plan of Care For the Purpose of:: To improve muscle performance and motor function, To increase tolerance to activity/condition/position, To improve performance and independence with ADL's, To decrease level of supervision to perform tasks, To improve ability of physical actions for home/community/work/leisure, To improve gait and locomotor functions, To improve endurance, To improve balance and To improve safety with gait Therapeutic Exercise to Include: Strength training, Endurance training, Balance training, Coordination, Body mechanics, Postural training, Flexibilty training, Gait and locomotor training, Neuromotor development, Active ROM and Dynamic Lumbar Stabilization For the Purpose of:: To improve muscle performance and motor function, To improve ability to perform ADL's, To increase tolerance to activity/condition/position, To improve performance and independence with ADL's, To decrease level of supervision to perform tasks, To improve ability of physical actions for home/community/work/leisure, To improve gait and locomotor functions, To improve health of tissue, To decrease soft tissue restriction, To improve endurance, To improve balance and To improve safety with gait Functional Training to Include: Gait training For the Purpose of:: To improve gait and locomotor functions and To improve safety with gait Text: Thank you for the opportunity to evaluate your patient. For Medicare and Medicare HMO plans, please review the plan of care and approve it. It will need to be FAXED BACK to us at [phone] for Medicare purposes. For Medicare only, by signing this I certify the plan of care. Please let me know if there are questions or concerns regarding this plan of care. Physician Signature: Date:
--- NOTE | 2025-02-19 15:38 | HP.PTEVAL ---
Patient's Visit Information Visit Information Visit Information: TANVI ESCOTO is a 79 year old F referred to Physical Therapy by Dr. Narendra Cruz MD with a diagnosis of PD. 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 She saw Dr Chandra and met with his PA and was sent to pain management for her back. She had an injection in October in her LB and it did not work. Now she has pain down her R side and she can not bend or stoop. She just saw Dr Cruz and she feels that she is losing some of her confidence again. She was going to take steep steps down to the basement and she got to the top of the steps and was carrying the cookies and looked down the steps and started to panic and she fell BW because she tried to stop herself down her steps. She finds it harder for her to do things. That was the only near fall. Dr Medina said to get a foot brace but Dr Alberto said to not. Her sister is getting worse and she can still take care of herself. She can not stand without feeling shaky. Her R leg is giving her a problem. Her PD meds was just doubled as of yesterday. She goes back to in Apr. She have used her cane a few times due to the pain in her leg and she is not comfortable with her cane. She is getting another injection in her back on Wednesday. She is not doing a lot of exercises at home except some of her back and it hurts hurt to do them. She wants to work on her confidence with walking, stairs, balance etc. She is tired of being in back pain. She is also struggling to get out of her chair again. Pain Back pain: Pain Intensity (Out of 10): 3 R leg pain: Pain Intensity (Out of 10): Unrated Objective Objective: Gait: walks with B foot ER and decreased heel to toe gait pattern wit some veering to correct stepping out at times. 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 She did better holding onto counter and bringing one leg back LE MMT: R hip flex 7.7 and L 11.1 R knee ext 20.5 and L 13.8 R knee flex 6.6 and L 6.2 R DF 5.9 and L 6.7 Standing heel raises normal B and standing toe raises not able to raise the R at all except toe movement. FGA: 8 Seated opp arm and leg X 10 each leg with out messing up. Sit to stand: able to get up out of the chair without using her arms on second attempt. Balance/Special Test Scores Functional Gait Assessment Score: 8 % Disability: 73.3400 Oswestry Low Back Score: 11 Lower Extremity Functional Score: 19 Goals Goal 1:: I HEP Goal Time Frame: 6-8 Weeks Goal 2:: Be able to metal pickling equipment operator objects from the floor with least restrictive UE support and always with a gait belt. Goal Time Frame: 6-8 Weeks Goal 3:: Increase balance (FGA at eval: 8) Goal Time Frame: 6-8 Weeks Goal 4:: Be able to step over hurdles with CGA without hesitancy Goal Time Frame: 6-8 Weeks Goal 5:: Be able to step up onto a curb step with CGA and no hesitancy Goal Time Frame: 6-8 Weeks Anticipated Interventions Patient/Client Instruction: Educate patient on: Condition and Plan of Care For the Purpose of:: To improve muscle performance and motor function, To increase tolerance to activity/condition/position, To improve performance and independence with ADL's, To decrease level of supervision to perform tasks, To improve ability of physical actions for home/community/work/leisure, To improve gait and locomotor functions, To improve endurance, To improve balance and To improve safety with gait Therapeutic Exercise to Include: Strength training, Endurance training, Balance training, Coordination, Body mechanics, Postural training, Flexibilty training, Gait and locomotor training, Neuromotor development, Active ROM and Dynamic Lumbar Stabilization For the Purpose of:: To improve muscle performance and motor function, To improve ability to perform ADL's, To increase tolerance to activity/condition/position, To improve performance and independence with ADL's, To decrease level of supervision to perform tasks, To improve ability of physical actions for home/community/work/leisure, To improve gait and locomotor functions, To improve health of tissue, To decrease soft tissue restriction, To improve endurance, To improve balance and To improve safety with gait Functional Training to Include: Gait training For the Purpose of:: To improve gait and locomotor functions and To improve safety with gait Text: Thank you for the opportunity to evaluate your patient. For Medicare and Medicare HMO plans, please review the plan of care and approve it. It will need to be FAXED BACK to us at [phone] for Medicare purposes. For Medicare only, by signing this I certify the plan of care. Please let me know if there are questions or concerns regarding this plan of care. Physician Signature: Date:
--- NOTE | 2025-03-12 15:05 | HP.PTREVAL ---
Re-Evaluation Intro: Dr. Narendra Cruz MD, It has been my pleasure to treat TANVI ESCOTO over the last 10 visits for PD. Please see the progress note below for an update on the physical therapy plan of care! Subjective Subjective: Pt feels that her balance is improving and she is gaining confidence Objective Objective/Function: FGA 17 Plan Plan Plan: Gait belt at all times 2X/ week for 3 additional weeks for gait with and without head turns, picking up objects from the floor, stepping over hurdles curb steps, sit to stand, dual tasking with HEP Balance/Gait/Functional tests Balance/Special Test Scores Functional Gait Assessment Score: 17 % Disability: 43.3400 Oswestry Low Back Score: 11 Lower Extremity Functional Score: 33 Goals Goals Goal 1:: I HEP Goal Time Frame: 6-8 Weeks Goal 2:: Be able to picker and sorter load and unload objects from the floor with least restrictive UE support and always with a gait belt. Goal Time Frame: 6-8 Weeks Goal Progress: Progressing Goal 3:: Increase balance (FGA at eval: 8) Goal Time Frame: 6-8 Weeks Goal 4:: Be able to step over hurdles with CGA without hesitancy Goal Time Frame: 6-8 Weeks Goal Progress: Goal Met Goal 5:: Be able to step up onto a curb step with CGA and no hesitancy Goal Time Frame: 6-8 Weeks Goal Progress: Progressing Anticipated Interventions Anticipated Interventions Patient/Client Instruction: Educate patient on: Condition and Plan of Care For the Purpose of:: To improve muscle performance and motor function, To increase tolerance to activity/condition/position, To improve performance and independence with ADL's, To decrease level of supervision to perform tasks, To improve ability of physical actions for home/community/work/leisure, To improve gait and locomotor functions, To improve endurance, To improve balance and To improve safety with gait Therapeutic Exercise to Include: Strength training, Endurance training, Balance training, Coordination, Body mechanics, Postural training, Flexibilty training, Gait and locomotor training, Neuromotor development, Active ROM and Dynamic Lumbar Stabilization For the Purpose of:: To improve muscle performance and motor function, To improve ability to perform ADL's, To increase tolerance to activity/condition/position, To improve performance and independence with ADL's, To decrease level of supervision to perform tasks, To improve ability of physical actions for home/community/work/leisure, To improve gait and locomotor functions, To improve health of tissue, To decrease soft tissue restriction, To improve endurance, To improve balance and To improve safety with gait Functional Training to Include: Gait training For the Purpose of:: To improve gait and locomotor functions and To improve safety with gait Re-Evaluation Ending Re-evaluation ending: Please do not hesitate to contact me at [phone] by phone or if you have questions or concerns regarding this new plan of care! Sincerely, Lauren Irby, MPT
--- NOTE | 2025-03-12 15:07 | HP.PTREVAL ---
Re-Evaluation Intro: Dr. Narendra Cruz MD, It has been my pleasure to treat TANVI ESCOTO over the last 10 visits for PD. Please see the progress note below for an update on the physical therapy plan of care! Subjective Subjective: Pt feels that her balance is improving and she is gaining confidence Objective Objective/Function: FGA 17 Plan Plan Plan: Gait belt at all times 2X/ week for 3 additional weeks for gait with and without head turns, picking up objects from the floor, stepping over hurdles curb steps, sit to stand, dual tasking with HEP Balance/Gait/Functional tests Balance/Special Test Scores Functional Gait Assessment Score: 17 % Disability: 43.3400 Oswestry Low Back Score: 11 Lower Extremity Functional Score: 33 Goals Goals Goal 1:: I HEP Goal Time Frame: 6-8 Weeks Goal 2:: Be able to rock picker objects from the floor with least restrictive UE support and always with a gait belt. Goal Time Frame: 6-8 Weeks Goal Progress: Progressing Goal 3:: Increase balance (FGA at eval: 8) Goal Time Frame: 6-8 Weeks Goal 4:: Be able to step over hurdles with CGA without hesitancy Goal Time Frame: 6-8 Weeks Goal Progress: Goal Met Goal 5:: Be able to step up onto a curb step with CGA and no hesitancy Goal Time Frame: 6-8 Weeks Goal Progress: Progressing Anticipated Interventions Anticipated Interventions Patient/Client Instruction: Educate patient on: Condition and Plan of Care For the Purpose of:: To improve muscle performance and motor function, To increase tolerance to activity/condition/position, To improve performance and independence with ADL's, To decrease level of supervision to perform tasks, To improve ability of physical actions for home/community/work/leisure, To improve gait and locomotor functions, To improve endurance, To improve balance and To improve safety with gait Therapeutic Exercise to Include: Strength training, Endurance training, Balance training, Coordination, Body mechanics, Postural training, Flexibilty training, Gait and locomotor training, Neuromotor development, Active ROM and Dynamic Lumbar Stabilization For the Purpose of:: To improve muscle performance and motor function, To improve ability to perform ADL's, To increase tolerance to activity/condition/position, To improve performance and independence with ADL's, To decrease level of supervision to perform tasks, To improve ability of physical actions for home/community/work/leisure, To improve gait and locomotor functions, To improve health of tissue, To decrease soft tissue restriction, To improve endurance, To improve balance and To improve safety with gait Functional Training to Include: Gait training For the Purpose of:: To improve gait and locomotor functions and To improve safety with gait Re-Evaluation Ending Re-evaluation ending: Please do not hesitate to contact me at [phone] by phone or if you have questions or concerns regarding this new plan of care! Sincerely, Lauren Irby, MPT
--- NOTE | 2025-04-10 09:44 | HP.PTDCSUM ---
Discharge Summary D/C summary: It has been my pleasure to treat TANVI ESCOTO referred by Dr. Narendra Cruz MD, with the diagnosis of PD for a total of 17 visit(s). Discharge Date: 04/10/25 Please see the following information for a summary of their discharge status. Subjective Subjective: Pt reports that she feels that her balance and gait has gotten better. Her confidence is better. Pain Back pain: Pain Intensity (Out of 10): 5 R leg pain: Pain Intensity (Out of 10): 1 Overall Improvement % Improvement: 80 Objective Objective/Function: FGA 21 Pt s able to p/objects from the floor with no LOB X 8 Stairs: up and down recip Pt is able to do opp arm and leg in stand FW X 10 each leg with no mess ups but BW she has to figure it out and then able to do it one sided. 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 Goal Progress: Goal Met Goal 3:: Increase balance (FGA at eval: 8) Goal Progress: Goal Met Goal 4:: Be able to step over hurdles with CGA without hesitancy Goal Progress: Goal Met Goal 5:: Be able to step up onto a curb step with CGA and no hesitancy Goal Progress: Goal Met Plan Plan: DC PT to HEP and pt will look into PD class D/C Information Discharge Comments: DC PT to HEP d/c sentence: If there are questions or concerns regarding this patient's physical therapy, please feel free to call me at [phone]. Thank you for the referral of this patient. Sincerely, Lauren Irby, MPT Balance/Gait/Functional tests Balance/Special Test Scores Functional Gait Assessment Score: 21 % Disability: 30.0000 Oswestry Low Back Score: 11 Lower Extremity Functional Score: 37 Improvement % Improvement: 80
--- NOTE | 2025-04-10 09:47 | HP.PTDCSUM_ITS ---
Discharge Summary D/C summary: It has been my pleasure to treat TANVI ESCOTO referred by Dr. Narendra Cruz MD, with the diagnosis of PD for a total of 17 visit(s). Discharge Date: 04/10/25 Please see the following information for a summary of their discharge status. Subjective Subjective: Pt reports that she feels that her balance and gait has gotten better. Her confidence is better. Pain Back pain: Pain Intensity (Out of 10): 5 R leg pain: Pain Intensity (Out of 10): 1 Overall Improvement % Improvement: 80 Objective Objective/Function: FGA 21 Pt s able to p/objects from the floor with no LOB X 8 Stairs: up and down recip Pt is able to do opp arm and leg in stand FW X 10 each leg with no mess ups but BW she has to figure it out and then able to do it one sided. Goals Goal 1:: I HEP Goal Progress: Goal Met Goal 2:: Be able to pick up worker objects from the floor with least restrictive UE support and always with a gait belt. Goal Progress: Goal Met Goal 3:: Increase balance (FGA at eval: 8) Goal Progress: Goal Met Goal 4:: Be able to step over hurdles with CGA without hesitancy Goal Progress: Goal Met Goal 5:: Be able to step up onto a curb step with CGA and no hesitancy Goal Progress: Goal Met Plan Plan: DC PT to HEP and pt will look into PD class D/C Information Discharge Comments: DC PT to HEP d/c sentence: If there are questions or concerns regarding this patient's physical therapy, please feel free to call me at [phone]. Thank you for the referral of this patient. Sincerely, Lauren Irby, MPT Balance/Gait/Functional tests Balance/Special Test Scores Functional Gait Assessment Score: 21 % Disability: 30.0000 Oswestry Low Back Score: 11 Lower Extremity Functional Score: 37 Improvement % Improvement: 80
== END 2025-04-09 19:00 | disposition home or self-care (01) ==
LOC: PT 11:00
PROVIDERS: PCP Internal Medicine; Referring Provider Psychiatry & Neurology Neurology; Visit Provider Psychiatry & Neurology Neurology
DX: M51.369 Other intervertebral disc degeneration, lumbar region without mention of lumbar back pain or lower extremity pain (principal); G20.A1 Parkinson's disease without dyskinesia, without mention of fluctuations
CPT/HCPCS: 97110; 97161; 97162; 97530